=== PATIENT | male | born 1940 | race Caucasian/White ===

== ENCOUNTER → 2021-02-26 09:03 | Outpatient (CLI) | payer MEDICAID, SELFPAY ==
[2017-01-08 10:30] VITALS: BMI 30.2
[2021-02-26 11:21] LABS: AST(SGOT) 27 U/L (15-37); Alanine Aminotransfer ALT/SGPT 33 U/L (16-61); Albumin, Serum 3.1 g/dL (3.2-5.0); Alkaline Phosphatase 111 U/L (45-117); Bilirubin, Direct 0.14 mg/dL (0.00-0.30); Cholesterol 148 mg/dL (200); Globulin 3.5 g/dL (2.2-4.2); High Density Lipoprotein 43 mg/dL; Protein, Total 6.6 g/dL (6.4-8.2); Triglycerides 103 mg/dL; Very Low Density Lipoprotein 21 mg/dL (5-40)
== END ==
PROVIDERS: PCP Family Medicine; Referring Provider Internal Medicine Cardiovascular Disease; Visit Provider Internal Medicine Cardiovascular Disease
DX: E78.5 Hyperlipidemia, unspecified (principal); I25.10 Atherosclerotic heart disease of native coronary artery without angina pectoris; I25.5 Ischemic cardiomyopathy; Z95.0 Presence of cardiac pacemaker; I34.0 Nonrheumatic mitral (valve) insufficiency; I10 Essential (primary) hypertension; Z95.5 Presence of coronary angioplasty implant and graft
CPT/HCPCS: 36415; 80061; 80076

== ENCOUNTER 2021-06-22 10:51 | Emergency (ER) | payer MEDICAID, SELFPAY ==
[2017-01-08 10:30] VITALS: BMI 30.2
[2021-06-22 10:52] VITALS: BP 138/75; PULSE 96; RESP 20; TEMP 36.6; O2SAT 98; BMI 32.5
[2021-06-22 11:07] VITALS: BP 131/65; BP 147/73; BP 161/68; PULSE 100; PULSE 85
--- NOTE | 2021-06-22 11:07 | EKG12_ITS ---
Test Reason : DIZZINESS Blood Pressure : / mmHG Vent. Rate : 089 BPM Atrial Rate : 089 BPM P-R Int : 192 ms QRS Dur : 098 ms QT Int : 362 ms P-R-T Axes : 050 -15 056 degrees QTc Int : 440 ms Normal sinus rhythm Normal ECG Confirmed by SUZI PANG, TALYA ([id number]), slot editor ROJAS KIM ([id number]) on 06/26/2021 11:21:29 AM Referred By: MARIA ELENA Confirmed By:TALYA ARCHER MD
--- NOTE | 2021-06-22 11:08 | EDS_ITS ---
HPI History of Present Illness Chief Complaint: Dizziness Informant: patient Onset/Context/Timing Onset: Weeks Context: Sudden Onset Timing: Intermittent Current Severity: Gone Maximum Severity: Mild Narrative Narrative: 80-year-old male extensive past medical history of CAD, diabetes, hypertension, cardiomyopathy, renal insufficiency, pacemaker [employer]. States he has been lightheaded for last several weeks. He has had some near falls. Says he gets if he gets up more slowly it seems to go better but when he gets up quickly he gets lightheaded. He denies any trouble with his speech or vision. He denies any loss of strength in his arms or legs. He denies any recent illness other than some mild loose stools today. He denies any headache. He denies any chest pain. He denies any shortness of breath. He denies any fevers. Prior similar symptoms: Yes Recent Illness/Hospitalization: No [facility] Medical History Angina pectoris Atherosclerotic heart disease of [place] coronary artery without angina pectoris Chest pain Chronic renal insufficiency Diabetes mellitus, type II Essential hypertension Hyperlipidemia Hypertension Hypothyroidism Ischemic cardiomyopathy Nonrheumatic mitral valve regurgitation NSTEMI (non-ST elevated myocardial infarction) Overweight (BMI 25.0-29.9) Presence of permanent cardiac pacemaker (~10/03/16) Sinus bradycardia Sinus pause Systolic dysfunction Home Medications aspirin 81 mg chewable tablet 81 mg PO DAILY@0800 #90 tab.chew 11/21/17 [Rx Last Taken Unknown] levothyroxine 25 mcg tablet 25 mcg PO DAILY 02/23/21 [History Last Taken Unknown] atorvastatin 40 mg tablet 40 mg PO QHS tab 06/04/21 [History Last Taken Unknown] carboxymethylcellulose sodium 1 % eye liquid gel drops 1 drp OPHTHALMIC (EYE) QHS ml 06/04/21 [History Last Taken Unknown] lisinopril 2.5 mg tablet 2.5 mg PO DAILY tab 06/04/21 [History Last Taken Unknown] metformin 1,000 mg tablet 1,000 mg PO BIDWMEAL tab 06/04/21 [History Last Taken Unknown] Allergy/AdvReac Type Severity Reaction Status Date / Time No Known Allergies Allergy Verified 06/22/21 10:54 Family History Father Family history of coronary artery disease Surgical History History of cholecystectomy History of inguinal hernia repair History of tonsillectomy and adenoidectomy Hx of appendectomy Postsurgical percutaneous transluminal coronary angioplasty (PTCA) status Presence of stent in coronary artery (~10/02/16) Social History Smoking Status: Former smoker alcohol intake: never substance use type: does not use ROS ROS ED ROS Narrative No recent illness. Mild loose stool today. Review of Systems ROS Unobtainable: Denies due to encephalopathy Constitutional Constitutional ED: Denies fever(s) Eyes Eyes: Denies change in vision ENT ENT ED: Denies ear pain Cardiovascular Cardiovascular: Denies chest pain Respiratory/Chest Respiratory/Chest: Denies dyspnea Gastrointestinal Gastrointestinal: Reports diarrhea; Denies abdominal pain, nausea or vomiting Genitourinary Genitourinary ED: Denies dysuria Musculoskeletal Musculoskeletal: Denies myalgias Integumentary Denies rash Neurologic Neurologic: Denies headache(s) Psychiatric Psychiatric: Denies depression Endocrine Endocrinology: Denies polyuria Allergic/Immunologic Allergic/Immunologic ED: Denies urticaria EXAM Physical Exam Narrative Exam Narrative: Well-appearing 80-year-old male. Vital signs stable afebrile. H EENT exam unremarkable. Pupils are reactive light. Extra motions intact. Normal speech. No facial droop. No trauma. Lungs clear to auscultation. Heart regular rhythm rate about 95. Chest were nontender. Abdomen soft nontender. Moving all 4 extremities. 1+ pitting edema both lower extremities which patient states is chronic and unchanged. Neurologically is awake. Is alert. He is answering questions following commands. He has no facial droop. Normal speech. 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 Normal dorsi plantar flexion. Fingertip to nose within normal limits. NIH score while lying in bed is normal. Const Vital Signs: 06/22/21 10:52 06/22/21 11:07 06/22/21 11:17 Temperature 97.9 F Temperature Source Temporal Pulse Rate 96 Pulse Rate [Lying] 85 Pulse Rate [Standing (for 1 minute prior to obtaining)] 100 Respiratory Rate 20 H Respiratory Effort Normal Non-Labored Respiratory Pattern Normal Blood Pressure 138/75 H Blood Pressure [Lying] 131/65 H Blood Pressure [Sitting (for 1 minute prior to obtaining)] 147/73 H Blood Pressure [Standing (for 1 minute prior to obtaining)] 161/68 H Blood Pressure Mean 96 Blood Pressure Mean [Lying] 87 Blood Pressure Mean [Sitting (for 1 minute prior to obtaining)] 97 Blood Pressure Mean [Standing (for 1 minute prior to obtaining)] 99 Pulse Ox 98 Oxygen Delivery Method Room Air Positive well nourished and well developed; Negative for obese, cachectic, contractures or unkempt General Appearance ED: well developed and NAD; Negative for unkempt, cachectic, contractures, cyanotic or diaphoretic Nutritional Appearance: Negative for cachectic or obese HEENT Reports moist mucous membranes Negative for trauma or tenderness Eyes PERRL and EOMs intact bilaterally General Eye ED: Negative for pale conjunctiva or scleral icterus Neck no lymphadenopathy, supple and no JVD General: Negative for tenderness Chest Wall inspection of chest normal and palpation of chest normal Resp normal respiratory effort and clear to auscultation bilaterally Effort and Inspection: Negative for pain with movement Auscultation: Negative for rales, rhonchi or wheezes Cardio regular rate, regular rhythm, S1 normal heart sound and S2 normal heart sound; Negative for no murmurs GI normal to inspection, nondistended, normoactive bowel sounds, non-tender, non- distended and no masses Auscultation: normoactive bowel sounds Palpation: soft; Negative for tender, guarding or rebound tenderness present Back/Spine no CVA tenderness General Back: Negative for CVA tenderness Cervical Spine: Negative for cervical spine tenderness Thoracic Spine / Upper Back: Negative for thoracic spinal tenderness Extremity normal to inspection General Extremety ED: Yes edema; Negative for tenderness General Extremity: edema Neuro oriented x3 Neuro Narrative: Negative Hallpike. Normal motor strength in both upper and lower extremities. Sensorium / Orientation: alert; Negative for orientation impaired, lethargic or stuporous Motor Exam: strength 5/5 throughout Psych mental status grossly normal Appearance: Negative for unkempt Mood & Affect: Negative for depressed or tearful Skin no rashes or lesions noted, no wounds and No skin turgor normal General Skin Exam: Negative for elasticity normal MDM MDM MDM Narrative Medical decision making narrative: 80-year-old male complaining of lightheadedness when he stands quickly. I suspect this is orthostatic hypotension. He has no acute neurological findings. Labs CAT scan and orthostatic vital signs to be obtained. Repeat exam patient is doing well at 1:15 PM. He is walking through the hallway without any difficulty. I believe he may be having orthostatic blood pressure changes. These have been compensation with an accelerated heart rate when he stands. We did orthostatic vital signs his pressure did not drop. But he did have symptoms. He is recently had some medication changes family and him are unsure exactly which ones. He will follow up with his primary care physician to see if he needs his blood pressure medications adjusted or decreased. Lab Data Attestation: I reviewed the patient's lab results. Lab results narrative: CBC White count of 4.9. H&H 11.9 and 35.8 mildly anemic. Similar to a prior CBC. Chemistries unremarkable normal gap. BUN 22 creatinine 1.39 consistent with mild dehydration. Orthostatic vital signs showed an increase in heart rate but no drop in his blood pressure he is compensated for orthostatic hypotension. Labs: Laboratory Results - last 24 hr 06/22/21 06/22/21 11:15 11:15 WBC 4.9 RBC 3.77 L Hgb 11.9 L Hct 35.8 L MCV 95.0 H MCH 31.6 MCHC 33.2 RDW Std Deviation 46.2 H RDW Coeff of Taniya 13.1 Plt Count 157 MPV 10.2 Immature Gran % (Auto) 0.200 Neut % (Auto) 53.0 Lymph % (Auto) 30.5 Ross % (Auto) 13.9 H Eos % (Auto) 2.0 Baso % (Auto) 0.4 Absolute Neuts (auto) 2.6 Absolute Lymphs (auto) 1.49 Nucleated RBC % 0 Sodium 136 Potassium 4.0 Chloride 105 Carbon Dioxide 25.0 Anion Gap 6 BUN 22 H Creatinine 1.39 H Estim Creat Clear Calc 42.39 Est GFR (MDRD) Af Amer 63 Est GFR (MDRD) Non-Af 52 L BUN/Creatinine Ratio 15.8 Glucose 198 H Calcium 8.7 Radiography Diagnostic Testing: Clinical Impression(s) from Imaging Studies Brain CT 06/22/21 11:35 IMPRESSION: Chronic involutional changes of the brain. Sinusitis. Electronically Signed: Vaibhav Magaña MD at 12:02 EDT , Rhythm Strip Rhythm Strip: Sinus Rhythm Rate: 89 Ectopy: None EKG Initial EKG: Attestation: I personally reviewed and interpreted this EKG as follows: Interpretation: Sinus Rhythm and No Acute Injury Pattern Comments: Normal sinus rhythm rate of 89 no acute signs of CA or ischemia. Discharge Plan Triage Chief Complaint: Dizziness ED Provider: Gold Brock Dx/Rx/DC Orders Clinical Impression: Dizziness, History of diabetes mellitus, History of hypertension Instructions: ED Dizziness, Uncertain Cause Prescriptions: No Action levothyroxine 25 mcg tablet 25 mcg PO DAILY RF: 0 lisinopril 2.5 mg tablet 2.5 mg PO DAILY RF: 0 metformin 1,000 mg tablet 1,000 mg PO BIDWMEAL RF: 0 atorvastatin 40 mg tablet 40 mg PO QHS RF: 0 carboxymethylcellulose sodium [Refresh Liquigel] 1 % drops, liquid gel 1 drp ophthalmic (eye) QHS RF: 0 aspirin 81 mg tablet,chewable 81 mg PO DAILY@0800 Qty: 90 RF: 3 Primary Care Provider: Harshil Franklin Referrals: Harshil Franklin MD [Primary Care Provider] - 1 Week Activity Restrictions/Additional Instructions: Call and follow-up with your primary care physician. They may need to adjust your blood pressure medications. It seems when you go from a sitting or lying position to standing or getting lightheaded which may be secondary to your blood pressure. They may need to decrease your medication. Make sure you are drinking plenty of fluids. Have them check your blood pressures and write them down twice daily and then follow-up with your primary care physician. When you go from a sitting to a standing position do it very slowly Disposition Disposition: Home, Self Care
[2021-06-22 11:24] LABS: Absolute Lymphocyte Count 1.49 X10^3/uL (0.83-4.51); Absolute Neutrophil Count 2.6 X10^3/uL (2.0-7.7); Basophil# 0.02 X10^3/uL; Basophil% 0.4 % (0-1); Hematocrit 35.8 % (40-54); Hemoglobin 11.9 g/dL (13.0-16.5); Lymphocyte # 1.49 X10^3/ul (0.83-4.51); Lymphocyte % 30.5 % (19-41); Mean Corp Hgb Conc 33.2 g/dL (32-36); Mean Corpuscular Hgb 31.6 pg (27.0-32.0); Mean Platelet Vol. 10.2 fl (6.2-12.0); Monocyte# 0.68 X10^3/uL; Monocyte% 13.9 % (0-10); NRBC Flagged by Analyzer 0 % (0-5); Neutrophil # 2.58 X10^3/uL (2.7-7.7); Platelet Count 157 K/mm3 (150-450); RBC Distribution Width CV 13.1 % (11.6-14.6); RBC Distribution Width SD 46.2 fl (35.1-43.9); Red Blood Count 3.77 M/mm3 (4.6-6.2); White Blood Count 4.9 K/mm3 (4.4-11.0)
--- NOTE | 2021-06-22 11:35 | CT_ITS ---
STUDY: CT BRAIN WITHOUT CONTRAST REASON FOR EXAM: Male, 80 years old. dizziness RADIATION DOSAGE (If Supplied By Facility): CTDIvol = ( 44.99 ) mGy, DLP = ( 812.98 ) mGycm TECHNIQUE: Transaxial CT imaging of the brain was performed without administration of intravenous contrast material. Individualized dose optimization techniques were used for this CT. COMPARISON: Comparison is made with prior study dated 05/12/2014. FINDINGS: Normal soft tissue structures. Normal calvarium. Normal size ventricles and extra-axial spaces for the patient''s age. Normal white matter tracts of the cerebral hemispheres. Normal basal ganglia and thalami. Normal brainstem. Normal cerebellum. There is no intracranial hemorrhage. There are no findings of an acute ischemic infarction. Atherosclerotic calcification of the cavernous portions of the internal carotid arteries bilaterally. Partial opacification of the ethmoid sinuses more prominent on the right side. Mucosal thickening of the frontal sinus. CT/Brain/Head without Contrast IMPRESSION: Chronic involutional changes of the brain. Sinusitis. Electronically Signed: Vaibhav Magaña MD at 12:02 EDT ,
[2021-06-22 11:39] LABS: Anion Gap 6 (5-15); BUN 22 mg/dL (7-18); BUN/Creat Ratio 15.8 RATIO (10-20); Calcium,Total 8.7 mg/dL (8.5-10.1); Chloride 105 mmol/L (98-107); Creatinine, Serum 1.39 mg/dL (0.70-1.30); EST Glomerular Filtration Rate 52 mL/min (>60); Est Glom Filt Rate - Afr Amer 63 mL/min (>60); Estimated Creatinine Clearance 42.39 ml/min; Glucose 198 mg/dL (74-106); Sodium Level 136 mmol/L (136-145)
[2021-06-22 13:33] VITALS: BP 141/71; PULSE 77; RESP 16
== END 2021-06-22 13:37 | disposition home or self-care (01) ==
PROVIDERS: Emergency Provider Emergency Medicine; PCP Family Medicine; Visit Provider Emergency Medicine
DX: R42 Dizziness and giddiness (principal); I25.10 Atherosclerotic heart disease of native coronary artery without angina pectoris; I25.2 Old myocardial infarction; Z95.0 Presence of cardiac pacemaker; Z87.891 Personal history of nicotine dependence
CPT/HCPCS: 70450; 80048; 85025; 93005; 99284; A4216

== ENCOUNTER 2023-01-09 06:13 | Emergency (ER) | payer MEDICAID, SELFPAY ==
[2017-01-08 10:30] VITALS: BMI 30.2
[2023-01-09 06:14] VITALS: BP 118/62; PULSE 101; RESP 16; TEMP 36.6; O2SAT 94; BMI 27.8
--- NOTE | 2023-01-09 06:32 | EDS_ITS ---
HPI <Dr. Doug Prince DO - Last Filed: 01/09/23 06:55> HPI - Fall History of Present Illness Chief Complaint: Fall Informant: patient and SNF Occured/Mechanism Occurred: Today Narrative: Patient fell out of bed Pain/Injury Pain Location: head Quality of Pain: Aching Worsened by: Nothing Relieved by: Nothing Associated Symptoms Associated Symptoms: Negative for Parasthesias, Weakness, Loss of function, Inability to ambulate or Loss of consciousness Narrative Narrative: Patient presents after a fall that occurred today. Patient is a very poor informant. Patient states he remembers waking up on the floor. Patient thinks he hit the left side of his head. Patient denies any loss of consciousness. residential staff states that the patient is normally somewhat confused. Currently the patient is awake and alert and oriented to person and place. residential staff states that this is his baseline. [facility] <Dr. Doug Prince DO - Last Filed: 01/09/23 06:55> [facility] Medical History Angina pectoris Atherosclerotic heart disease of [place] coronary artery without angina pectoris Chest pain Chronic renal insufficiency Diabetes mellitus, type II Essential hypertension Hyperlipidemia Hypertension Hypothyroidism Ischemic cardiomyopathy Nonrheumatic mitral valve regurgitation NSTEMI (non-ST elevated myocardial infarction) Overweight (BMI 25.0-29.9) Presence of permanent cardiac pacemaker (~10/03/16) Sinus bradycardia Sinus pause Systolic dysfunction Home Medications aspirin 81 mg chewable tablet 81 mg PO DAILY@0800 ##90 11/21/17 [Rx Last Taken Unknown] atorvastatin 40 mg tablet 40 mg PO QHS 06/04/21 [History Last Taken Unknown] carboxymethylcellulose sodium 1 % eye liquid gel drops (Refresh Liquigel) 1 drp ophthalmic (eye) QHS 06/04/21 [History Last Taken Unknown] metformin 1,000 mg tablet 1,000 mg PO BIDWMEAL 06/04/21 [History Last Taken Unknown] lisinopril 5 mg tablet 5 mg PO DAILY 12/06/21 [History Last Taken Unknown] levothyroxine 50 mcg capsule 75 mcg PO DAILY 08/20/22 [History Last Taken Unknown] amoxicillin 875 mg-potassium clavulanate 125 mg tablet 875 mg (0.875 x 875-125 mg) PO Q12H #20 TABLETS 01/09/23 [Rx Last Taken Unknown] nirmatrelvir 300 mg (150 mg x2)-ritonavir 100 mg tablet,dose pack (Paxlovid) PO 01/09/23 [History Last Taken Unknown] Allergy/AdvReac Type Severity Reaction Status Date / Time No Known Allergies Allergy Verified 01/09/23 06:25 Family History (Reviewed 08/20/22 @ 13:50 by Hernesto Guillory ACCOUNTS RECEIVABLE BOOKKEEPER, ACCOUNTS RECEIVABLE BOOKKEEPER-C) Father Family history of coronary artery disease Surgical History History of cholecystectomy History of inguinal hernia repair History of tonsillectomy and adenoidectomy Hx of appendectomy Postsurgical percutaneous transluminal coronary angioplasty (PTCA) status Presence of stent in coronary artery (~10/02/16) Social History Smoking Status: Former smoker alcohol intake: never substance use type: does not use ROS <Dr. Doug Prince, - Last Filed: 01/09/23 06:55> ROS ED Constitutional Constitutional ED: Denies chills or fever(s) Cardiovascular Cardiovascular: Denies chest pain or palpitations Respiratory/Chest Respiratory/Chest: Denies cough or dyspnea Musculoskeletal Musculoskeletal: Denies back pain or neck pain Neurologic Neurologic: Reports headache(s) EXAM <Dr. Doug Prince, - Last Filed: 01/09/23 06:55> Physical Exam Const Vital Signs: 01/09/23 06:14 01/09/23 06:21 Temperature 97.8 F Temperature Source Oral Pulse Rate 101 H Respiratory Rate 16 Respiratory Effort Normal Blood Pressure 118/62 Blood Pressure Mean 80 Pulse Ox 94 Oxygen Delivery Method Room Air Room Air Positive well nourished and well developed General Appearance ED: well developed and NAD HEENT Reports normocephalic HEENT Narrative: There is some mild tenderness over the left parietal area. There is no bony cre pitance or step-off noted. There is no laceration noted. Neck full ROM and supple Chest Wall palpation of chest normal Resp normal respiratory effort and clear to auscultation bilaterally Cardio regular rate and regular rhythm GI non-tender and non-distended Palpation: soft Extremity Extremity Narrative: Extremities are intact x4. There is good range of motion of the upper and lower extremities. There is no edema or ecchymosis. There is no bony crepitance or step-off noted. There is no pain with internal and external rotation of the lower extremities. Neuro CN's II-XII intact bilaterally, moves all extremities, no focal motor deficits and no sensory deficits noted [place] Coma Scale: document GCS findings Spontaneous Obeys Commands Confused 14 Sensorium / Orientation: alert, oriented to person, oriented to place and confused Motor Exam: strength 5/5 throughout Psych mental status grossly normal Skin Lesions: no lesions Rashes: no rashes <Dr. Anoop Hernandez MD - Last Filed: 01/09/23 07:40> Physical Exam Const Vital Signs: 01/09/23 06:14 01/09/23 06:21 Temperature 97.8 F Temperature Source Oral Pulse Rate 101 H Respiratory Rate 16 Respiratory Effort Normal Blood Pressure 118/62 Blood Pressure Mean 80 Pulse Ox 94 Oxygen Delivery Method Room Air Room Air Neuro [place] Coma Scale: document GCS findings 14 MDM <Dr. Doug Prince DO - Last Filed: 01/09/23 06:55> [facility] Narrative Medical decision making narrative: Differential diagnosis includes intracranial bleeding, concussion, hypoglycemia, and contusion. CT scan of the brain will be obtained to assess for intracranial bleeding. BGT will be obtained to assess for hypoglycemia. Radiography Diagnostic Testing: Clinical Impression(s) from Imaging Studies Brain CT 01/09/23 06:40 IMPRESSION: 1. No acute intracranial abnormalities. 2. Age-related changes. Electronically Signed: Stefano Lopez MD at 7:16 EDT , Treatment and Re-Evaluation Narrative: Care of the patient will be turned over to the oncoming physician pending CT results and BGT results. <Dr. Anoop Hernandez MD - Last Filed: 01/09/23 07:40> [facility] Radiography Diagnostic Testing: Clinical Impression(s) from Imaging Studies Brain CT 01/09/23 06:40 IMPRESSION: 1. No acute intracranial abnormalities. 2. Age-related changes. Electronically Signed: Stefano Lopez MD at 7:16 EDT , The head without contrast was independent reviewed by ok at 0715. There is no evidence of skull fracture or evidence of subdural hematoma, epidural hematoma, traumatic subarachnoid hemorrhage or intraparenchymal bleed. There is air-fluid levels noted in the right and left maxillary sinus. The frontal and sphenoid sinuses are clear. Awaiting formal read by radiologist. Treatment and Re-Evaluation Narrative: Care of the patient will be turned over to the oncoming physician pending CT results and BGT results. Care was transferred to ok at 0700. Plan was to discharge if PGT and CT were unremarkable. CT results revealed no intracranial abnormalities. Discharge Plan Triage Chief Complaint: Fall ED Provider: Duog Prince Dx/Rx/DC Orders Clinical Impression: Closed head injury, Fall, Atherosclerotic heart disease of [place] coronary artery without angina pectoris, Diabetes mellitus, type II, Essential hypertension, Hyperlipidemia, Maxillary sinusitis, acute Instructions: ED Head Injury (Adult), ED Sinusitis (Antibiotic Treatment) Prescriptions: New amoxicillin-pot clavulanate [amoxicillin-pot clavulanate] 875-125 mg tablet 875 mg PO Q12H Qty: 20 0RF No Action metformin 1,000 mg tablet 1,000 mg PO BIDWMEAL Patient Comments: 1 TABLET BY MOUTH TWICE ATDAY WITH MEALS DX:DMIIM atorvastatin 40 mg tablet 40 mg PO QHS Patient Comments: 1 TABLET BY MOUTH DAILY DX: carboxymethylcellulose sodium [Refresh Liquigel] 1 % drops, liquid gel 1 drp ophthalmic (eye) QHS lisinopril 5 mg tablet 5 mg PO DAILY levothyroxine 50 mcg capsule 75 mcg PO DAILY Paxlovid 300 mg (150 mg x 2)-100 mg tablets,dose pack PO Patient Comments: take three tabsbid x 5 days Rx Instructions: take TWO 150 mg tablets of nirmatrelvir with ONE 100 mg tablet of ritonavir twice daily for 5 days aspirin 81 mg tablet,chewable 81 mg PO DAILY@0800 Qty: 90 3RF Patient Comments: [facility] Primary Care Provider: Harshil Franklin Referrals: Harshil Franklin MD [Primary Care Provider] - 1 Week Disposition Disposition: Home, Self Care
--- NOTE | 2023-01-09 06:40 | CT_ITS ---
EXAM: CT HEAD WITHOUT INTRAVENOUS CONTRAST CLINICAL INDICATION: Trauma TECHNIQUE: Multiple axial images were obtained of the head without intravenous contrast. This CT exam was performed using one or more of the following dose reduction techniques: automated exposure control, adjustment of the mA and/or kV according to patient size, and/or use of iterative reconstruction technique. RADIATION DOSE: CTDIvol = 44.99 mGy, DLP = 745.49 mGy-cm COMPARISON: Head CT 06/22/2021 FINDINGS: BRAIN AND EXTRA-AXIAL SPACES: Diffuse cerebral volume loss. Periventricular small vessel ischemic changes. No intra- or extra-axial hemorrhage. No intracranial mass or mass effect. Posterior fossa structures are unremarkable. No hydrocephalus. Basal cisterns are patent. BONES/JOINTS: Unremarkable. No discrete lytic or blastic abnormalities. VASCULATURE: Vascular calcifications. SINUSES: Bilateral maxillary sinus disease. MASTOID AIR CELLS: Fluid in the mastoid air cells without erosion. ORBITS: Visualized globes, extraocular muscles, optic nerves and retrobulbar fat appear unremarkable. CT/Brain/Head without Contrast IMPRESSION: 1. No acute intracranial abnormalities. 2. Age-related changes. Electronically Signed: Stefano Lopez MD at 7:16 EDT ,
[2023-01-09] MEDS: Amox/Clavulanate 875 MG Tablet PO (08:12)
[2023-01-09 08:13] VITALS: BP 118/60; PULSE 72; RESP 18; O2SAT 96
[2023-01-09 08:23] VITALS: BP 120/62; PULSE 72; RESP 18; O2SAT 96
== END 2023-01-09 08:26 | disposition home or self-care (01) ==
PROVIDERS: Emergency Provider Emergency Medicine; PCP Family Medicine; Visit Provider Emergency Medicine
DX: S09.90XA Unspecified injury of head, initial encounter (principal); E11.22 Type 2 diabetes mellitus with diabetic chronic kidney disease; J01.00 Acute maxillary sinusitis, unspecified; W06.XXXA Fall from bed, initial encounter; Y92.122 Bedroom in nursing home as the place of occurrence of the external cause; I25.10 Atherosclerotic heart disease of native coronary artery without angina pectoris; I12.9 Hypertensive chronic kidney disease with stage 1 through stage 4 chronic kidney disease, or unspecified chronic kidney disease; N18.9 Chronic kidney disease, unspecified; I25.2 Old myocardial infarction; Z95.5 Presence of coronary angioplasty implant and graft; Z79.82 Long term (current) use of aspirin; Z79.84 Long term (current) use of oral hypoglycemic drugs; Z79.899 Other long term (current) drug therapy; Z87.891 Personal history of nicotine dependence
CPT/HCPCS: 70450; 99283

== ENCOUNTER 2023-01-11 19:13 | Inpatient (IN) | payer MEDICAID, SELFPAY ==
[2017-01-08 10:30] VITALS: BMI 30.2
--- NOTE | 2023-01-11 16:54 | EKG12_ITS ---
Test Reason : DYSRHYTHMIA Blood Pressure : / mmHG Vent. Rate : 077 BPM Atrial Rate : 077 BPM P-R Int : 222 ms QRS Dur : 098 ms QT Int : 400 ms P-R-T Axes : 071 -14 043 degrees QTc Int : 452 ms Sinus rhythm with 1st degree A-V block Otherwise normal ECG Confirmed by LORAINE PANG, FRANCO ([id number]), science editor GLORIA SHETTY ([id number]) on 02/03/2023 11:14:44 AM Referred By: Enriqueta Barker Confirmed By:STEWART BARON MD
--- NOTE | 2023-01-11 17:00 | RAD_ITS ---
STUDY: X-RAY CHEST REASON FOR EXAM: Male, 82 years old. COUGH TECHNIQUE: AP COMPARISON: 01/07/2017 FINDINGS: Two lead cardiac conduction device is seen via the left subclavian vein with lead tips projecting over the right atrium and right ventricle, respectively. Airspace disease of the right lung base is new. There is no demonstrated pleural abnormality. Normal size heart. Normal mediastinum and edis. Normal visualized pulmonary arteries. Normal visualized aortic arch and descending thoracic aorta. No acute bony process. There is no demonstrated abnormality of the visualized soft tissue structures of the upper abdomen. RAD/Chest 1 View (Portable) IMPRESSION: Right lower lobe airspace disease/pneumonia. Follow-up x-ray to document resolution recommended. Electronically Signed: Migel Michael MD (Brooks) at 19:54 EDT ,
--- NOTE | 2023-01-11 17:10 | CT_ITS ---
STUDY: CT BRAIN WITHOUT CONTRAST REASON FOR EXAM: Male, 77 years old. confused RADIATION DOSAGE (If Supplied By Facility): CTDIvol = ( 44.99 ) mGy, DLP = ( 779.24 ) mGycm TECHNIQUE: Transaxial CT imaging of the brain was performed without administration of intravenous contrast material. Individualized dose optimization techniques were used for this CT. COMPARISON: 08/09/2020 FINDINGS: Normal soft tissue structures. Normal calvarium. Central parenchymal volume loss. White matter changes that are nonspecific but most commonly associated with chronic small vessel ischemic disease. Normal basal ganglia and thalami. Normal brainstem. Normal cerebellum. There is no intracranial hemorrhage. There are no findings of an acute ischemic infarction. Small right maxillary sinus air-fluid level. CT/Brain/Head without Contrast IMPRESSION: No acute intracranial hemorrhage or mass effect. Electronically Signed: Migel Michael MD ([place]oks) at 17:28 EDT ,
[2023-01-11] MEDS: 0.9% Normal Saline (1000mL) 1,000 ML 75 ML IV (19:20)
--- NOTE | 2023-01-11 19:21 | EX.ED.DYSGE1 ---
HPI History of Present Illness Chief Complaint: Weakness Detail of Chief Complaint: [facility] Informant: patient Onset/Context/Timing Onset: Today Context: Gradual Onset Timing: Continuous Maximum Severity: Moderate Narrative Narrative: 82-year-old male poor informant. Prior cardiac history and diabetes. Sent in for failure to thrive [facility]. Prior similar symptoms: No Recent Illness/Hospitalization: No [facility] Medical History Angina pectoris Atherosclerotic heart disease of [place] coronary artery without angina pectoris Chest pain Chronic renal insufficiency Diabetes mellitus, type II Essential hypertension Hyperlipidemia Hypertension Hypothyroidism Ischemic cardiomyopathy Nonrheumatic mitral valve regurgitation NSTEMI (non-ST elevated myocardial infarction) Overweight (BMI 25.0-29.9) Presence of permanent cardiac pacemaker (~10/03/16) Sinus bradycardia Sinus pause Systolic dysfunction Home Medications aspirin 81 mg chewable tablet 81 mg PO DAILY@0800 ##90 11/21/17 [Rx Last Taken Unknown] atorvastatin 40 mg tablet 40 mg PO QHS 06/04/21 [History Last Taken Unknown] carboxymethylcellulose sodium 1 % eye liquid gel drops (Refresh Liquigel) 1 drp ophthalmic (eye) QHS 06/04/21 [History Last Taken Unknown] metformin 1,000 mg tablet 1,000 mg PO BIDWMEAL 06/04/21 [History Last Taken Unknown] lisinopril 5 mg tablet 5 mg PO DAILY 12/06/21 [History Last Taken Unknown] levothyroxine 50 mcg capsule 75 mcg PO DAILY 08/20/22 [History Last Taken Unknown] amoxicillin 875 mg-potassium clavulanate 125 mg tablet 875 mg (0.875 x 875-125 mg) PO Q12H #20 TABLETS 01/09/23 [Rx Last Taken Unknown] nirmatrelvir 300 mg (150 mg x2)-ritonavir 100 mg tablet,dose pack (Paxlovid) PO 01/09/23 [History Last Taken Unknown] Allergy/AdvReac Type Severity Reaction Status Date / Time No Known Allergies Allergy Verified 01/09/23 06:25 Family History Father Heart disease Hypertension CAD (coronary artery disease) Surgical History History of cholecystectomy History of inguinal hernia repair History of tonsillectomy and adenoidectomy Hx of appendectomy Postsurgical percutaneous transluminal coronary angioplasty (PTCA) status Presence of stent in coronary artery (~10/02/16) Social History household members: none housing: assisted living facility Smoking Status: Former smoker alcohol intake: never substance use type: does not use ROS ROS ED ROS Narrative Limited informant due to his overall medical condition. Review of Systems ROS Unobtainable: due to mental status EXAM Physical Exam Narrative Exam Narrative: 8-year-old male vital signs are stable. He is afebrile. H EENT exam dry mucous membranes. Given reactive light. Neck nontender. No lymphadenopathy. Lungs clear to auscultation bilaterally. Heart regular rhythm no murmur. Chest wall nontender. Abdomen soft nontender. Moving all 4 extremities. Nontender. Neurologically he is awake. His eyes are open. He is trying to answer questions but his information is not reliable and may not be accurate. He does move all 4 extremities. There is no focal motor deficits. Const Positive well nourished and well developed; Negative for obese, cachectic or contractures General Appearance ED: well developed; Negative for cachectic, contractures, cyanotic, diaphoretic or pallor Nutritional Appearance: Negative for cachectic or obese HEENT Reports dry mucous membranes; Denies moist mucous membranes Negative for trauma or tenderness Mouth ED: Yes dry mucous membranes Mouth: dry mucous membranes Eyes PERRL and EOMs intact bilaterally General Eye ED: Negative for pale conjunctiva or scleral icterus Neck no lymphadenopathy, supple and no JVD General: Negative for tenderness Lymph Lymphatic: Negative for other Chest Wall inspection of chest normal and palpation of chest normal Chest: Negative for other Resp normal respiratory effort and clear to auscultation bilaterally Effort and Inspection: Negative for retractions Auscultation: Negative for rales, rhonchi or wheezes Cardio regular rate, regular rhythm, S1 normal heart sound, S2 normal heart sound and no murmurs GI normal to inspection, nondistended, normoactive bowel sounds, non-tender, non-distended and no masses Inspection: Negative for abdominal distention Auscultation: normoactive bowel sounds Palpation: soft; Negative for tender or guarding Back/Spine no CVA tenderness General Back: Negative for CVA tenderness Cervical Spine: Negative for cervical spine tenderness Thoracic Spine / Upper Back: Negative for thoracic spinal tenderness or paraspinal muscle tenderness Lumbar Spine / Lower Back: Negative for lumbar spinal tenderness Extremity normal to inspection General Extremety ED: Negative for edema or tenderness General Extremity: Negative for edema Neuro No oriented x3 and CN's II-XII intact bilaterally Sensorium / Orientation: alert and orientation impaired; Negative for lethargic or stuporous Motor Exam: strength 5/5 throughout Psych mental status grossly normal Appearance: Negative for other Attitude: No agitated Mood & Affect: Negative for depressed, anxious or tearful Skin no rashes or lesions noted and no wounds General Skin Exam: Negative for jaundice or pallor Lesions: No lesion noted Rashes: No rashes noted Trauma: Negative for abrasion Wounds: Negative for wounds noted MDM MDM MDM Narrative Medical decision making narrative: Male from a apartment complex and normal for failure to thrive. He is a very limited informant. Clinically looks dehydrated. He will undergo work-up for infectious etiology, dehydration etc. Repeat exam no significant change. He received a liter of normal saline. Patient's been typed and crossed for 2 units to be transfused 1 unit. He will be started on IV antibiotics Rocephin and Zithromax for suspected right lower lobe pneumonia on chest x-ray. I have already spoken to the hospitalist. He will be admitted to the progressive care unit. History & Record Review Discussion w/independent historian: Patient Additional record(s) reviewed:: Prior inpatient record, Prior outpatient record, Prior ED visit and Prior labs Lab Data Attestation: I reviewed the patient's lab results. Lab results narrative: Labs were consistent with dehydration and renal insufficiency. CBC showed an anemia with a hemoglobin in the 7-1/2 range. Chest x-ray shows a right lower lobe pneumonia. CAT scan of the brain showed no acute abnormality. EKG was unremarkable. Radiography Chest X-Ray - ED: 1 View, Read by ED Physician, Heart, Mediastinum, Bony Structures, Chronic Changes and Right Infiltrate (Right lower lobe infiltrate.) Rhythm Strip Rhythm Strip: Sinus Rhythm Rate: 82 Ectopy: None EKG Initial EKG: Attestation: I personally reviewed and interpreted this EKG as follows: Interpretation: Sinus Rhythm and No Acute Injury Pattern Comments: Normal sinus rhythm rate 82. First-degree AV block. No acute signs of ME or ischemia. Critical Care Time Critical Care Time: Yes Critical care time (excluding procedures): 30-74 minutes, Including time spent:, Discussing w/Patient &/or Family/Mild Disabilities Teacher, Discussing w/Consultants, Arranging Admission or Transfer, Performing Direct Patient Care at Bedside and - (33 min) Discharge Plan Triage Chief Complaint: Weakness ED Provider: Gold Brock Dx/Rx/DC Orders Prescriptions: No Action metformin 1,000 mg tablet 1,000 mg PO BIDWMEAL Patient Comments: 1 TABLET BY MOUTH TWICE ATDAY WITH MEALS DX:DMIIM atorvastatin 40 mg tablet 40 mg PO QHS Patient Comments: 1 TABLET BY MOUTH DAILY DX: carboxymethylcellulose sodium [Refresh Liquigel] 1 % drops, liquid gel 1 drp ophthalmic (eye) QHS lisinopril 5 mg tablet 5 mg PO DAILY levothyroxine 50 mcg capsule 75 mcg PO DAILY Paxlovid 300 mg (150 mg x 2)-100 mg tablets,dose pack PO Patient Comments: take three tabsbid x 5 days Rx Instructions: take TWO 150 mg tablets of nirmatrelvir with ONE 100 mg tablet of ritonavir twice daily for 5 days amoxicillin-pot clavulanate [amoxicillin-pot clavulanate] 875-125 mg tablet 875 mg PO Q12H Qty: 20 0RF aspirin 81 mg tablet,chewable 81 mg PO DAILY@0800 Qty: 90 3RF Patient Comments: heart health Primary Care Provider: Harshil Franklin Referrals: Harshil Franklin MD [Primary Care Provider] -
--- NOTE | 2023-01-11 19:22 | HP.PCM.HOS_ITS ---
HPI - General General Date of Admission: 01/11/23 Date of Service: 01/11/23 Chief Complaint: Falls, debility, weakness, confusion, unable to care for self. HPI Narrative The patient is an 82 y/o M w/ PMHx: PAF/Flutter, Chronic anemia/Chronic normocytic anemia, CKD unclear if stage II or III, CAD s/p PCI, Ischemic cardiomyopathy, Diabetes mellitus type II, HTN, HLD, Hypothyroidism, Sinus bradycardia/pauses s/p pacemaker status, Former tobacco use, recent [facility] ED evaluation 01/09/23 secondary to also mechanical fall with back discomfort at that time who now [id number] to the [facility] ED on 01/11/23 with history of increased weakness and debility, initial evaluation per EMS wit patient alert and oriented x1 only although extremely hard of hearing with underlying baseline charted dementia with decreased appetite, falls, increasing debility prompting eventual EMS transition to the ED for evaluation. Work-up in the ED included T98.4, heart rate 76, BP 102/56, respiratory rate 13, 96% on room air, CBC with WC 4.3, hemoglobin 7.4, MCV 93, platelet 141 with lymphopenia, urinalysis with no marked evidence of UTI, CT brain with no acute intracranial findings, T+C 2 u PRBC given dehydrated appearance upon presentation and Hgb 7.4, CXR with suspected RLL, Bld Cx x 2 pending per ED. In the ED patient administered IV Rocephin and IV azithromycin as well as 1 L normal saline. [facility] Medical History (Updated 01/11/23 @ 19:[address] Enriqueta Barker MD) Atherosclerotic heart disease of [place] coronary artery without angina pectoris Chronic renal insufficiency Diabetes mellitus, type II Essential hypertension Hyperlipidemia Hypothyroidism Ischemic cardiomyopathy Nonrheumatic mitral valve regurgitation NSTEMI (non-ST elevated myocardial infarction) Overweight (BMI 25.0-29.9) Presence of permanent cardiac pacemaker (~10/03/16) Sinus bradycardia Sinus pause Systolic dysfunction Home Medications aspirin 81 mg chewable tablet 81 mg PO DAILY@0800 ##90 11/21/17 [Rx Last Taken Unknown] atorvastatin 40 mg tablet 40 mg PO QHS 06/04/21 [History Last Taken Unknown] carboxymethylcellulose sodium 1 % eye liquid gel drops (Refresh Liquigel) 1 drp ophthalmic (eye) QHS 06/04/21 [History Last Taken Unknown] metformin 1,000 mg tablet 1,000 mg PO BIDWMEAL 06/04/21 [History Last Taken Unknown] lisinopril 5 mg tablet 5 mg PO DAILY 12/06/21 [History Last Taken Unknown] levothyroxine 50 mcg capsule 75 mcg PO DAILY 08/20/22 [History Last Taken Unknown] amoxicillin 875 mg-potassium clavulanate 125 mg tablet 875 mg (0.875 x 875-125 mg) PO Q12H #20 TABLETS 01/09/23 [Rx Last Taken Unknown] nirmatrelvir 300 mg (150 mg x2)-ritonavir 100 mg tablet,dose pack (Paxlovid) PO 01/09/23 [History Last Taken Unknown] Allergy/AdvReac Type Severity Reaction Status Date / Time No Known Allergies Allergy Verified 01/09/23 06:25 Family History Father Heart disease Hypertension CAD (coronary artery disease) Surgical History (Updated 01/11/23 @ 19:[address] Enriqueta Barker MD) History of cholecystectomy History of inguinal hernia repair History of tonsillectomy and adenoidectomy Hx of appendectomy Postsurgical percutaneous transluminal coronary angioplasty (PTCA) status Presence of stent in coronary artery (~10/02/16) S/P cardiac pacemaker procedure Social History household members: none housing: assisted living facility Smoking Status: Former smoker alcohol intake: never substance use type: does not use ROS Review of Systems ROS Unobtainable: due to encephalopathy Physical Exam Narrative Physical Examination: General: Awake, alert, minimally oriented, encephalopathic, still following some commands but very hard of hearing, difficulty evaluation, laying in the ED bed, no acute distress. Skin: Normal color, normal turgor, no icterus, no cyanosis except significant bilateral lower extremity venous stasis skin changes as well as occasional staged ecchymoses to the extremities. HEENT: AT/NC, EOMI, PERRLA, dry MM, no carotid bruits or JVD noted. Lungs: Diminished, greater bases, appropriate effort, despite chest x-ray findings no appreciated rales, ronchi or wheezing. Heart: Regular/paced; no gallop, rub audible. Abdomen: Soft, NTTP, ND, hyperactive BS, no appreciated HSM. Extremities: No cyanosis, no clubbing, significant pedal to proximal [place] 3+ pitting edema, see skin. Neurological: Awake, alert, minimally oriented, encephalopathic, still following some commands but very hard of hearing, difficulty evaluation, laying in the ED bed, no acute distress, cognitive function not baseline intact; pupils equally reactive to light and accommodation, cranial nerves grossly pill normal but difficult evaluation given encephalopathy, moving extremities spontaneously, no obvious focal deficit, strength severely globally decreased. Psychiatric: Affect appears flat, no acute evidence of depressive or anxiety feelings. Assessment & Plan Assessment/Plan (1) Encephalopathy acute: PLAN: Plan The patient is an 82 y/o M w/ PMHx: PAF/Flutter, Chronic anemia/Chronic normocytic anemia, CKD unclear if stage II or III, CAD s/p PCI, Ischemic cardiomyopathy, Diabetes mellitus type II, HTN, HLD, Hypothyroidism, Sinus bradycardia/pauses s/p pacemaker status, Former tobacco use, recent [facility] ED evaluation 01/09/23 secondary to also mechanical fall with back discomfort at that time who now [id number] to the [facility] ED on 01/11/23 with history of increased weakness and debility, initial evaluation per EMS wit patient alert and oriented x1 only although extremely hard of hearing with underlying baseline charted dementia with decreased appetite, falls, increasing debility prompting eventual EMS transition to the ED for evaluation. 1. Acute Encephalopathy and Adult FTT, Multifactial, secondary to RLL Pneumonia and concurrent #2 and #3: CXR in the ED w/ suspected RLL infiltrate but final read pending. Will admit to PCU to be cautious given lower BPs, PRN albuterol, maintained on IV Rocephin and Azithromycin, HOB, IS parameters w/ pending sputum cultures, full respiratory viral panel, COVID antigen and urine antigens, p rocalcitonin pending. PT/OT/CM consulted for discharge planning. 2. Acute on Chronic normocytic anemia, certainly possible GI bleed but not verified and no facility report of altered stools: Admission hemoglobin 7.4, MCV 93, baseline hemoglobin appears to be primarily 11 however last lab noted was 06/2021, will continue to trend, will obtain stool guaiac as well as iron panel, ferritin to further assess, ED of note also already initiated 2 u PRBC given concern Hgb truly lower given dehydrated appearance, will trend H+H also, maintain on PPI to be cautious, allow clears with NPO status at midnight until ascertain whether or not patient is a GI bleed. If Hgb further trends down or evidence GI bleed will involve gastroenterology. 3. Suspected Mild Acute Renal Insufficiency on Chronic Kidney Disease Stage, unclear stage potentially II versus III as well as has vacillated per review of GFR trending: Suspect mild insufficiency on chronic secondary to failure to appropriately care for self with likely decreased oral intake, admission BUN/Cr 34/1.51, baseline renal function 0.9-1.2 primarily however has increased up to 1.4, repeat BMP in AM. 4. CAD/ischemic cardiomyopathy: Status post PCI, will judiciously hydrate given history, holding aspirin given acute presentation with increased anemia although last hemoglobin 06/2021 but to be cautious in case of GI bleed component, continue atorvastatin, holding hypertensive regimen given low BP as noted. 09/30/2016 echocardiogram with mild segmental systolic dysfunction, EF 45%, moderate concentric LVH, mild to moderate MVI, mild TVI, trivial WALT, trivial PVI, RVSP 36 mmHg, transmitral diastolic flow velocities suggestive of diastolic dysfunction. 5. Diabetes mellitus type II: Hold oral home regimen, will allow clears until midnight then n.p.o. status pending further evaluation of decreased hemoglobin as noted, accu checks w/ ISS. 6. PAF/Flutter: Not chronically anticoagulant possibly secondary to falls, not on rate or rhythm agent with history of bradycardia/sinus pauses status post pacemaker placement. 7. Hypertension: Patient with low BP upon presentation, will hold regimen until clinically appropriate for resumption. 8. Hyperlipidemia: We will continue patient on statin therapy. 9. Hypothyroidism: We will continue patient on levothyroxine regimen, TSH and free T4 requested. 10. History sinus lang dysfunction with bradycardia/pauses: Status post pacemaker placement. 11. Former tobacco use: Encourage continued tobacco cessation. 12. DVT Prophylaxis: SCDs, defer chemoprophylaxis until sure no GI bleed component. 13. CODE status: Patient unable to give any history regarding HCPOA/LW, awaiting information from facility, in interim will maintain Full Code unverified status. Charges/Coding Visit Charges Inpatient E&M: 34382 Init Hosp L3
[2023-01-11 19:40] VITALS: BMI 25.8
[2023-01-11 21:10] LABS: Absolute Lymphocyte Count 0.55 X10^3/uL (0.83-4.51); Absolute Neutrophil Count 2.3 X10^3/uL (2.0-7.7); Basophil# 0.02 X10^3/uL; Basophil% 0.5 % (0-1); Eosinophil# 0.01 X10^3/uL; Eosinophils% 0.3 % (0-5); Hematocrit 22.5 % (40-54); Hemoglobin 7.3 g/dL (13.0-16.5); Lymphocyte # 0.55 X10^3/ul (0.83-4.51); Lymphocyte % 14.9 % (19-41); Mean Corp Hgb Conc 32.4 g/dL (32-36); Mean Corpuscular Hgb 30.5 pg (27.0-32.0); Mean Corpuscular Volume 94.1 fL (80-94); Mean Platelet Vol. 10.2 fl (6.2-12.0); Monocyte# 0.79 X10^3/uL; Monocyte% 21.5 % (0-10); NRBC Flagged by Analyzer 0 % (0-5); Neutrophil # 2.27 X10^3/uL (2.7-7.7); Neutrophil % 61.7 % (47-70); POSITIVE DIFFERENTIAL YES; Platelet Count 145 K/mm3 (150-450); RBC Distribution Width CV 15.1 % (11.6-14.6); RBC Distribution Width SD 52.6 fl (35.1-43.9); Red Blood Count 2.39 M/mm3 (4.6-6.2); White Blood Count 3.7 K/mm3 (4.4-11.0)
[2023-01-11 21:12] LABS: Differential Indicated SCAN CRITERIA MET
[2023-01-11 21:38] LABS: Differential Comment SCANNED
[2023-01-11 21:51] LABS: Ferritin 2432 ng/mL (26-388); Iron 23 ug/dL (65-175); Iron Binding Capacity,Total 165 ug/dL (250-450); Magnesium 1.6 mg/dL (1.6-2.6); PERCENT IRON SATURATION 13.9 % (15.0-55.0)
[2023-01-11 22:00] VITALS: PULSE 76; RESP 18
[2023-01-11 22:19] LABS: Hemoglobin 6.6 g/dL (13.0-16.5)
[2023-01-11] MEDS: Pantoprazole Sodium 40 MG in 0.9% Normal Saline (100mL MB+) 100 ML 330 MG IV (22:24)
[2023-01-11] MEDS: Atorvastatin Calcium 40 MG Tablet PO (22:24)
[2023-01-11] MEDS: Menthol/Lanolin/Calamine/Znox 113 GM Tube 1 APPLIC TOPICAL (22:24)
[2023-01-11] MEDS: Glycerin/Hypromellose/PEG400 15 ml Bottle 1 DRP EACH EYE (22:25)
--- NOTE | 2023-01-11 23:00 | EX.PCM.CON.G ---
HPI Consult Data Date of Consult: 01/11/23 HPI Narrative Reason for Consultation: Anemia HPI Narrative: JILLIAN PAGAN, is a 82 M who presents for failure to thrive at his senior apartment complex. He has a past medical history of PAF/Flutter (on aspirin only due to fall risk), Chronic anemia/Chronic normocytic anemia, CKD unclear if stage II or III, CAD s/p PCI, Ischemic cardiomyopathy, Sinus bradycardia/pauses s/p pacemaker. He has been having increased weakness and debility. ED included T98.4, heart rate 76, BP 102/56, respiratory rate 13, 96% on room air, CBC with WC 4.3, hemoglobin 7.4, MCV 93, platelet 141 with lymphopenia, urinalysis with no marked evidence of UTI, CT brain with no acute intracranial findings, T+C 2 u PRBC given dehydrated appearance upon presentation and Hgb 7.4, CXR with suspected RLL, Bld Cx x 2 pending per ED. In the ED patient administered IV Rocephin and IV azithromycin as well as 1 L normal saline. I was called to evaluate him because of progressive anemia. [facility] Medical History (Updated 01/12/23 @ 08:[address] Boy Nicholas, DO) Atherosclerotic heart disease of [place] coronary artery without angina pectoris Chronic renal insufficiency Diabetes mellitus, type II Essential hypertension Hyperlipidemia Hypothyroidism Ischemic cardiomyopathy Nonrheumatic mitral valve regurgitation NSTEMI (non-ST elevated myocardial infarction) Overweight (BMI 25.0-29.9) Presence of permanent cardiac pacemaker (~10/03/16) Sinus bradycardia Sinus pause Systolic dysfunction Home Medications aspirin 81 mg chewable tablet 81 mg PO DAILY@0800 ##90 11/21/17 [Rx Last Taken Unknown] atorvastatin 40 mg tablet 40 mg PO QHS cholesterol 06/04/21 [History Last Taken Unknown] carboxymethylcellulose sodium 1 % eye liquid gel drops (Refresh Liquigel) 1 drp ophthalmic (eye) QHS dry eyes 06/04/21 [History Last Taken Unknown] metformin 1,000 mg tablet 1,000 mg PO BIDWMEAL diabetes 06/04/21 [History Last Taken Unknown] lisinopril 5 mg tablet 5 mg PO DAILY blood pressure 12/06/21 [History Last Taken Unknown] levothyroxine 50 mcg capsule 75 mcg PO DAILY hypothyroidism 08/20/22 [History Last Taken Unknown] amoxicillin 875 mg-potassium clavulanate 125 mg tablet 875 mg (0.875 x 875-125 mg) PO Q12H #20 TABLETS 01/09/23 [Rx Last Taken Unknown] nirmatrelvir 300 mg (150 mg x2)-ritonavir 100 mg tablet,dose pack (Paxlovid) 3 tab PO .5 days covid 01/09/23 [History Last Taken 01/10/23] Allergy/AdvReac Type Severity Reaction Status Date / Time penicillins Allergy Unknown NEEDS Uncoded 01/11/23 20:32 FOLLOW-UP Family History Father Heart disease Hypertension CAD (coronary artery disease) Surgical History (Updated 01/11/23 @ 19:[address] Enriqueta Barker MD) History of cholecystectomy History of inguinal hernia repair History of tonsillectomy and adenoidectomy Hx of appendectomy Postsurgical percutaneous transluminal coronary angioplasty (PTCA) status Presence of stent in coronary artery (~10/02/16) S/P cardiac pacemaker procedure Social History household members: none housing: assisted living facility Smoking Status: Former smoker alcohol intake: never substance use type: does not use ROS Review of Systems ROS Unobtainable: due to encephalopathy Physical Exam Const alert and no apparent distress General Appearance: cooperative, well kempt and well developed Orientation / Consciousness: awake HEENT normocephalic, head/scalp atraumatic and moist oral mucous membranes Eyes PERRL, EOMs intact bilaterally and conjunctivae normal Neck supple, no JVD, thyroid normal and no carotid bruits General: trachea midline Resp normal respiratory effort, no retractions, no use of accessory muscles and clear to auscultation bilaterally Auscultation: Negative for rales, rhonchi or wheezes Cardio regular rate, regular rhythm, S1 normal heart sound, S2 normal heart sound, no murmurs, no rub and no gallops GI normal to inspection, nondistended, normoactive bowel sounds, soft to palpation, non-tender and non-distended Extremity no clubbing, cyanosis or edema Skin no rashes or lesions noted General Skin Exam: no breakdown Neuro CN's II-XII intact bilaterally and no focal motor deficits Sensorium / Orientation: awake, alert and oriented to person Psych Psych Narrative: Patient is confused and hard of hearing Lab / Micro Data 01/12/23 07:32 01/12/23 07:32 Labs: Laboratory Results - last 24 hr 01/11/23 20:47: WBC 3.7 L, RBC 2.39 L, Hgb 7.3 L, Hct 22.5 L, MCV 94.1 H, MCH 30.5, MCHC 32.4, RDW Std Deviation 52.6 H, RDW Coeff of Taniya 15.1 H, Plt Count 145 L, MPV 10.2, Immature Gran % (Auto) 1.100 H, Neut % (Auto) 61.7, Lymph % (Auto) 14.9 L, [place] % (Auto) 21.5 H, Eos % (Auto) 0.3, Baso % (Auto) 0.5, Absolute Neuts (auto) 2.3, Absolute Lymphs (auto) 0.55 L, Nucleated RBC % 0, Differential Comment SCANNED, Diff Path Review July irving, Magnesium 1.6, Iron 23 L, TIBC 165 L, Iron Saturation 13.9 L, Ferritin 2432 H, Procalcitonin 0.50 H, Blood Type A POSITIVE, Antibody Screen NEGATIVE, Crossmatch See Detail 01/11/23 22:12: Hgb 6.6 L, Hct 21.0 L 01/12/23 01:22: POC Glucose 89 01/12/23 06:49: POC Glucose 84 01/12/23 07:32: WBC 3.2 L, RBC 2.99 L, Hgb 9.1 L, Hct 27.5 L, MCV 92.0, MCH 30.4, MCHC 33.1, RDW Std Deviation 51.9 H, RDW Coeff of Taniya 15.5 H, Plt Count 130 L, MPV 9.7, Immature Gran % (Auto) 0.900, Neut % (Auto) 61.9, Lymph % (Auto) 14.3 L, [place] % (Auto) 21.7 H, Eos % (Auto) 0.6, Baso % (Auto) 0.6, Absolute Neuts (auto) 2.0, Absolute Lymphs (auto) 0.46 L, Nucleated RBC % 0, Diff Path Review July irving, PT 16.8 H, INR 1.4, APTT 33.8, Sodium 139, Potassium 4.5, Chloride 110 H, Carbon Dioxide 22.0, Anion Gap 7, BUN 24 H, Creatinine 1.15, Estim Creat Clear Calc 44.69, Est GFR (MDRD) Af Amer 78, Est GFR (MDRD) Non-Af 65, BUN/Creatinine Ratio 20.9 H, Glucose 83, Hemoglobin A1c 5.0, Calcium 7.6 L, Total Bilirubin 0.80, AST 40 H, ALT 25, Alkaline Phosphatase 154 H, Total Protein 4.7 L, Albumin 1.8 L, Globulin 2.9, Albumin/Globulin Ratio 0.6 L, TSH 3.79 H, Free T4 1.29 Micro: Microbiology 01/11/23 20:20 Mucosa - Nose Respiratory Panel (PCR) - Final 01/11/23 22:35 Urine, Clean Catch Legionella Antigen - Final 01/11/23 22:35 Urine, Clean Catch Streptococcus pneumoniae Antigen (M - Final 01/11/23 20:20 Nasal Secretion SARS-CoV-2 Antigen (Rapid) - Final SARS-CoV-2 (COVID 19) Rhythm Strip Rhythm Strip: Sinus Rhythm Rate: 82 Ectopy: None Radiology Impression Chest X-Ray 01/11/23 17:00 IMPRESSION: Right lower lobe airspace disease/pneumonia. Follow-up x-ray to document resolution recommended. Electronically Signed: Migel Michael MD ([place]) at 19:54 EDT , Brain CT 01/11/23 17:10 IMPRESSION: No acute intracranial hemorrhage or mass effect. Electronically Signed: Migel Michael MD ([place]) at 17:28 EDT , Assessment & Plan Assessment/Plan (1) Encephalopathy acute: PLAN: Plan 82-year-old with multiple comorbidities including paroxysmal atrial fibrillation/flutter, CAD status post PTCA with stents resulting in ischemic cardiomyopathy and sick sinus syndrome status post permanent pacemaker who presents with failure to thrive and discovered to have worsening anemia and thrombocytopenia. Differential diagnosis for his encephalopathy, anemia and thrombocytopenia would be underlying cirrhosis. Risk factor there is a lower heart disease and diabetes mellitus along with advanced age. He should undergo an upper endoscopy to evaluate his upper GI tract for signs of acute or chronic blood loss anemia. If that is negative then he may need a colonoscopy. He should have imaging of his abdomen with right upper quadrant ultrasound to look for signs of hepatosplenomegaly or cirrhosis with portal hypertension and splenomegaly as etiology of his thrombocytosis. Charges/Coding Visit Charges Inpatient E&M: 15196 Init Hosp L3
[2023-01-11 23:07] VITALS: BP 99/46; PULSE 76; RESP 18; TEMP 36.5; O2SAT 97
[2023-01-11 23:22] VITALS: BP 111/49; PULSE 69; RESP 18; TEMP 37; O2SAT 98
[2023-01-12] VITALS (20 sets, daily range): BP systolic 95–116; BP diastolic 48–66; PULSE 68–95; RESP 18–20; TEMP 36.3–37; O2SAT 88–100; BMI 25.8; BMI 25.7
[2023-01-12 01:47] LABS: Bedside Glucose 89 mg/dL (74-106)
[2023-01-12 07:17] LABS: Bedside Glucose 84 mg/dL (74-106)
[2023-01-12 07:43] LABS: Absolute Lymphocyte Count 0.46 X10^3/uL (0.83-4.51); Basophil# 0.02 X10^3/uL; Basophil% 0.6 % (0-1); Eosinophil# 0.02 X10^3/uL; Eosinophils% 0.6 % (0-5); Hematocrit 27.5 % (40-54); Hemoglobin 9.1 g/dL (13.0-16.5); Lymphocyte # 0.46 X10^3/ul (0.83-4.51); Lymphocyte % 14.3 % (19-41); Mean Corp Hgb Conc 33.1 g/dL (32-36); Mean Corpuscular Hgb 30.4 pg (27.0-32.0); Mean Platelet Vol. 9.7 fl (6.2-12.0); Monocyte% 21.7 % (0-10); NRBC Flagged by Analyzer 0 % (0-5); Neutrophil # 1.99 X10^3/uL (2.7-7.7); Neutrophil % 61.9 % (47-70); POSITIVE DIFFERENTIAL YES; POSITIVE MORPHOLOGY YES; Platelet Count 130 K/mm3 (150-450); RBC Distribution Width CV 15.5 % (11.6-14.6); RBC Distribution Width SD 51.9 fl (35.1-43.9); Red Blood Count 2.99 M/mm3 (4.6-6.2); White Blood Count 3.2 K/mm3 (4.4-11.0)
[2023-01-12 07:46] LABS: Differential Indicated SCAN CRITERIA MET
[2023-01-12 08:08] LABS: ALB/GLOB Ratio 0.6 RATIO (0.9-2.4); AST(SGOT) 40 U/L (15-37); Alanine Aminotransfer ALT/SGPT 25 U/L (16-61); Albumin, Serum 1.8 g/dL (3.2-5.0); Alkaline Phosphatase 154 U/L (45-117); Anion Gap 7 (5-15); BUN 24 mg/dL (7-18); BUN/Creat Ratio 20.9 RATIO (10-20); Calcium,Total 7.6 mg/dL (8.5-10.1); Chloride 110 mmol/L (98-107); Creatinine, Serum 1.15 mg/dL (0.70-1.30); EST Glomerular Filtration Rate 65 mL/min (>60); Est Glom Filt Rate - Afr Amer 78 mL/min (>60); Estimated Creatinine Clearance 44.69 ml/min; Globulin 2.9 g/dL (2.2-4.2); Glucose 83 mg/dL (74-106); Potassium 4.5 mmol/L (3.5-5.1); Protein, Total 4.7 g/dL (6.4-8.2); Sodium Level 139 mmol/L (136-145); T4 Free Direct 1.29 ng/dL (0.76-1.46); Thyroid Stim Hormone (TSH) 3.79 uIU/mL (0.358-3.74)
[2023-01-12 08:13] LABS: International Normalized Ratio 1.4; Prothrombin Time (Protime)PT. 16.8 SECONDS (11.7-14.9)
[2023-01-12 08:14] LABS: Partial Thromboplast Time 33.8 Seconds (24.1-36.2)
--- NOTE | 2023-01-12 08:47 | PN.HOSP_ITS ---
Reason for Visit Reason for Visit: Diagnoses Encephalopathy, unspecified (01/11/23) Subjective Subjective Patient was seen and examined today, he remains on room air at this time, he remains confused and he is hard of hearing. Patient's COVID-19 test was positive. Patient is currently on Zithromax and Rocephin. Objective Data Objective Data Vital Signs: Vital Signs Temp Pulse Resp BP Pulse Ox O2 Del Method 97.7 F L 79 19 H 110/52 L 93 Room Air 01/12/23 05:57 01/12/23 05:57 01/12/23 05:57 01/12/23 05:57 01/12/23 08:34 01/12/23 08:34 Oxygen Delivery Method Room Air Weight: 72.2 kg Body Mass Index (BMI) 25.7 Intake & Output: Intake and Output for Last 24 Hours 01/10/23 01/11/23 01/12/23 23:59 23:59 23:59 Intake Total 1110 / 1110 401 / 401 Output Total 150 / 150 200 / 200 Balance 960 / 960 201 / 201 Lab / Micro Data 01/12/23 07:32 01/12/23 07:32 Labs: Laboratory Results - last 24 hr 01/11/23 20:47: WBC 3.7 L, RBC 2.39 L, Hgb 7.3 L, Hct 22.5 L, MCV 94.1 H, MCH 30.5, MCHC 32.4, RDW Std Deviation 52.6 H, RDW Coeff of Taniya 15.1 H, Plt Count 145 L, MPV 10.2, Immature Gran % (Auto) 1.100 H, Neut % (Auto) 61.7, Lymph % (Auto) 14.9 L, [place] % (Auto) 21.5 H, Eos % (Auto) 0.3, Baso % (Auto) 0.5, Absolute Neuts (auto) 2.3, Absolute Lymphs (auto) 0.55 L, Nucleated RBC % 0, Differential Comment SCANNED, Diff Path Review July, Magnesium 1.6, Iron 23 L, TIBC 165 L, Iron Saturation 13.9 L, Ferritin 2432 H, Procalcitonin 0.50 H, Blood Type A POSITIVE, Antibody Screen NEGATIVE, Crossmatch See Detail 01/11/23 22:12: Hgb 6.6 L, Hct 21.0 L 01/12/23 01:22: POC Glucose 89 01/12/23 06:49: POC Glucose 84 01/12/23 07:32: WBC 3.2 L, RBC 2.99 L, Hgb 9.1 L, Hct 27.5 L, MCV 92.0, MCH 30.4, MCHC 33.1, RDW Std Deviation 51.9 H, RDW Coeff of Taniya 15.5 H, Plt Count 130 L, MPV 9.7, Immature Gran % (Auto) 0.900, Neut % (Auto) 61.9, Lymph % (Auto) 14.3 L, [place] % (Auto) 21.7 H, Eos % (Auto) 0.6, Baso % (Auto) 0.6, Absolute Neuts (auto) 2.0, Absolute Lymphs (auto) 0.46 L, Nucleated RBC % 0, PT 16.8 H, INR 1.4, APTT 33.8, Sodium 139, Potassium 4.5, Chloride 110 H, Carbon Dioxide 22.0, Anion Gap 7, BUN 24 H, Creatinine 1.15, Estim Creat Clear Calc 44.69, Est GFR (MDRD) Af Amer 78, Est GFR (MDRD) Non-Af 65, BUN/Creatinine Ratio 20.9 H, Glucose 83, Hemoglobin A1c 5.0, Calcium 7.6 L, Total Bilirubin 0.80, AST 40 H, ALT 25, Alkaline Phosphatase 154 H, Total Protein 4.7 L, Albumin 1.8 L, Globulin 2.9, Albumin/Globulin Ratio 0.6 L, TSH 3.79 H, Free T4 1.29 Micro: Microbiology 01/11/23 20:20 Mucosa - Nose Respiratory Panel (PCR) - Final 01/11/23 22:35 Urine, Clean Catch Legionella Antigen - Final 01/11/23 22:35 Urine, Clean Catch Streptococcus pneumoniae Antigen (M - Final 01/11/23 20:20 Nasal Secretion SARS-CoV-2 Antigen (Rapid) - Final SARS-CoV-2 (COVID 19) Radiography Diagnostic Testing: Radiology Impression Chest X-Ray 01/11/23 17:00 IMPRESSION: Right lower lobe airspace disease/pneumonia. Follow-up x-ray to document resolution recommended. Electronically Signed: Migel Michael MD ([place]) at 19:54 EDT , Brain CT 01/11/23 17:10 IMPRESSION: No acute intracranial hemorrhage or mass effect. Electronically Signed: Migel Michael MD ([place]) at 17:28 EDT , Rhythm Strip Rhythm Strip: Sinus Rhythm Rate: 82 Ectopy: None Physical Exam Const alert and no apparent distress Constitutional Narrative: Patient appears older than stated age, he is hard of hearing General Appearance: cooperative, well kempt and well developed Orientation / Consciousness: awake HEENT normocephalic, head/scalp atraumatic and moist oral mucous membranes Eyes PERRL, EOMs intact bilaterally and conjunctivae normal Neck supple, no JVD, thyroid normal and no carotid bruits General: trachea midline Resp normal respiratory effort, no retractions, no use of accessory muscles and clear to auscultation bilaterally Auscultation: Negative for rales, rhonchi or wheezes Cardio regular rate, regular rhythm, S1 normal heart sound, S2 normal heart sound, no murmurs, no rub and no gallops GI normal to inspection, nondistended, normoactive bowel sounds, soft to palpation, non-tender and non-distended Extremity no clubbing, cyanosis or edema Skin no rashes or lesions noted General Skin Exam: no breakdown Neuro CN's II-XII intact bilaterally and no focal motor deficits Sensorium / Orientation: awake, alert and oriented to person Psych Psych Narrative: Patient is confused and hard of hearing Assessment & Plan Assessment/Plan (1) Generalized weakness: PLAN: Plan 1. Right lower lobe pneumonia-it is unknown whether this pneumonia is due to his COVID-19 or if it could be a community-acquired pneumonia, I have elected to keep the patient on his current antibiotic coverage, repeat chest x-ray will be performed tomorrow #2 anemia-etiology unclear, patient received 2 units of packed red blood cells, he will be seen in consultation by gastroenterology for endoscopy, CBC will be repeated tomorrow. Patient is on IV Protonix #3 COVID-19 infection-I have elected to place patient on dexamethasone, he is not currently hypoxic and I have elected not to place him on remdesivir. #4 dementia-complicates care, medical course, recovery, and prognosis #5 hypothyroidism-patient is on Synthroid #6 type 2 diabetes-patient is on sliding scale insulin with fingerstick blood sugars Patient may need placement in a long-term facility at the time of discharge from the hospital currently he is living in assisted living Total clinical time spent by myself addressing the patient's medical issues, reviewing all his data, and collaborating with patient's care team: 35-minute Charges/Coding Visit Charges Inpatient E&M: 59609 Subs Hosp L2
[2023-01-12] MEDS: Pantoprazole Sodium 40 MG in 0.9% Normal Saline (100mL MB+) 100 ML 330 MG IV ×2 (09:38→19:53)
[2023-01-12] MEDS: Ceftriaxone 1 GM/50 ML BAG IV (09:42)
[2023-01-12] MEDS: Azithromycin 500 MG in Dextrose 5%-Water (250mL Bag) 250 ML 250 MG IV (09:42)
[2023-01-12] MEDS: Menthol/Lanolin/Calamine/Znox 113 GM Tube 1 APPLIC TOPICAL ×3 (10:19→19:53)
--- NOTE | 2023-01-12 11:45 | NURSING ---
Pt off floor to Endo
--- NOTE | 2023-01-12 12:04 | OP.CCLET_ITS ---
01/12/2023 Harshil Franklin Re : Upper GI endoscopy procedure for Faustino Montez Rigoberto This procedure was performed on Thursday, January 12, 2023. My impressions and recommendations are as follows: Impressions : - Normal esophagus. - Hiatal hernia. 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 Treated with a heater probe. - Multiple non-bleeding duodenal ulcers with no stigmata of bleeding. - No specimens collected. Recommendations : - [facility]. - Advance diet as tolerated. - Continue present medications. My findings are described in the full procedure note, which is enclosed. If I can be of further assistance, please feel free to contact me at . Sincerely, Americo Bower, 01/12/2023 12:04:19 PM This report has been signed electronically.
--- NOTE | 2023-01-12 12:04 | OP.EGD_ITS ---
Patient Name: Faustino Ulloa Procedure Date: 01/12/2023 11:43 AM Date of : 1940 Age: 82 Procedure: Upper GI endoscopy Indications: Iron deficiency anemia Providers: Americo Bower DO Medicines: Monitored Anesthesia Care Patient Profile: This is an 82 year old male. Refer to note in patient chart for documentation of history and physical. Patient has symptoms of acute dyspepsia. Complications: No immediate complications. Procedure: Pre-Anesthesia Assessment: - Prior to the procedure, a History and Physical was performed, and patient medications and allergies were reviewed. The patient is competent. The risks and benefits of the procedure and the sedation options and risks were discussed with the patient. All questions were answered and informed consent was obtained. Patient identification and proposed procedure were verified by the physician in the pre-procedure area. Mental Status Examination: alert and oriented. Airway Examination: normal oropharyngeal airway and neck mobility. Respiratory Examination: clear to auscultation. CV Examination: normal. Prophylactic Antibiotics: The patient does not require prophylactic antibiotics. Prior Anticoagulants: The patient has taken no previous anticoagulant or antiplatelet agents. ASA Grade Assessment: IV - A patient with severe systemic disease that is a constant threat to life. After reviewing the risks and benefits, the patient was deemed in satisfactory condition to undergo the procedure. The anesthesia plan was to use monitored anesthesia care (MAC). Immediately prior to administration of medications, the patient was re-assessed for adequacy to receive sedatives. The heart rate, respiratory rate, oxygen saturations, blood pressure, adequacy of pulmonary ventilation, and response to care were monitored throughout the procedure. The physical status of the patient was re-assessed after the procedure. After obtaining informed consent, the endoscope was passed under direct vision. Throughout the procedure, the patient's blood pressure, pulse, and oxygen saturations were monitored continuously. The Endoscope was introduced through the mouth, and advanced to the second part of duodenum. The upper GI endoscopy was accomplished without difficulty. The patient tolerated the procedure well. Scope In: 11:57:06 AM Scope Out: 12:00:55 PM Total Procedure Duration Time 0 hours 3 minutes 49 seconds Findings: The examined esophagus was normal. A hiatal hernia was present. 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 Coagulation for hemostasis using heater probe was successful. Estimated blood loss was minimal. Many non-bleeding linear duodenal ulcers with no stigmata of bleeding were found in the duodenal bulb, in the first portion of the duodenum, in the second portion of the duodenum and in the third portion of the duodenum. The largest lesion was 4 mm in largest dimension. Impression: - Normal esophagus. - Hiatal hernia. 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 Treated with a heater probe. - Multiple non-bleeding duodenal ulcers with no stigmata of bleeding. - No specimens collected. Recommendation: - Return patient to [facility] for [facility] care. - Advance diet as tolerated. - Continue present medications. Procedure Code(s): --- Professional --- 41710, Esophagogastroduodenoscopy, flexible, transoral; with control of bleeding, any method CPT copyright 2021 [employer]. All rights reserved. The codes documented in this report are preliminary and upon head baggage porter review may be revised to meet current compliance requirements. Americo Bower DO 01/12/2023 12:04:19 PM This report has been signed electronically. Number of Addenda: 0 Note Initiated On: 01/12/2023 11:43 AM
--- NOTE | 2023-01-12 12:30 | NURSING ---
Pt returned to floor. Water provided, patient refuses diet at this time. Vitals obtained, no additional needs.
[2023-01-12 13:34] LABS: Hematocrit 28.2 % (40-54); Hemoglobin 9.1 g/dL (13.0-16.5)
[2023-01-12] MEDS: dexAMETHasone 4 MG Tablet 6 MG PO (14:07)
[2023-01-12 14:31] LABS: Bedside Glucose 90 mg/dL (74-106)
[2023-01-12] MEDS: Atorvastatin Calcium 40 MG Tablet PO (19:53)
[2023-01-12] MEDS: Glycerin/Hypromellose/PEG400 15 ml Bottle 1 DRP EACH EYE (19:53)
[2023-01-12 22:17] LABS: Bedside Glucose 114 mg/dL (74-106)
[2023-01-13] VITALS (7 sets, daily range): BP systolic 109–138; BP diastolic 54–88; PULSE 76–94; RESP 16–18; TEMP 36.1–36.4; O2SAT 94–99; BMI 26.4
[2023-01-13 01:37] LABS: Bedside Glucose 141 mg/dL (74-106)
[2023-01-13] MEDS: Levothyroxine 75 MCG Tablet PO (06:05)
[2023-01-13 06:30] LABS: Bedside Glucose 156 mg/dL (74-106)
[2023-01-13 07:01] LABS: Hematocrit 33.9 % (40-54)
[2023-01-13] MEDS: Pantoprazole Sodium 40 MG in 0.9% Normal Saline (100mL MB+) 100 ML 330 MG IV ×2 (09:45→22:59)
--- NOTE | 2023-01-13 09:46 | PN.HOSP_ITS ---
Reason for Visit Reason for Visit: Diagnoses Encephalopathy, unspecified (01/11/23) Weakness (01/11/23) Objective Data Objective Data Vital Signs: Vital Signs Temp Pulse Resp BP Pulse Ox O2 Del Method 36.2 C L 88 18 122/88 H 97 Room Air 01/13/23 06:07 01/13/23 06:07 01/13/23 06:07 01/13/23 06:07 01/13/23 06:07 01/13/23 06:07 Oxygen Delivery Method Room Air Weight: 74.1 kg Body Mass Index (BMI) 26.4 Intake & Output: Intake and Output for Last 24 Hours 01/11/23 01/12/23 01/13/23 23:59 23:59 23:59 Intake Total 1110 / 1110 1226 / 1226 Output Total 150 / 150 200 / 600 600 / 600 Balance 960 / 960 1026 / 626 -600 / -600 Medical Nutrition Assessment Dietitian: Malnutrition Criteria Met Start: 01/12/23 15:34 Freq: Status: Active Protocol: Document 01/12/23 15:34 RMA (Rec: 01/12/23 15:34 RMA [id number]) Nutrition Malnutrition Evidence of Malnutrition Exists Yes Malnutrition (severe): Chronic Evidenced By Suboptimal Energy Intake ( Severe),Weight Loss (Severe) Clinical Problem Chronic Disease or Condition Related Malnutrition Etiology Severe protein-calorie malnutrition in the context of chronic disease and debility related to inadequate oral/ energy intake Signs/Symptoms as evidenced by ~18% weight loss x past 5-6 months and suspected PO meeting less than 50% estimated nutrition needs Status Active Problem Recommendation Dietitian Recommendations/Changes Continue liberalized regular diet. Will add magic cup w/ lunch and dinner. Will add 120mL ensure plus high protein TID w/ meals. Lab / Micro Data 01/13/23 06:45 01/12/23 07:32 Labs: Laboratory Results - last 24 hr 01/12/23 13:18: Hgb 9.1 L, Hct 28.2 L 01/12/23 14:06: POC Glucose 90 01/12/23 19:45: POC Glucose 114 H 01/13/23 01:08: POC Glucose 141 H 01/13/23 06:01: POC Glucose 156 H 01/13/23 06:45: Hgb 11.0 L, Hct 33.9 L Micro: Microbiology 01/11/23 20:20 Mucosa - Nose Respiratory Panel (PCR) - Final 01/11/23 22:35 Urine, Clean Catch Legionella Antigen - Final 01/11/23 22:35 Urine, Clean Catch Streptococcus pneumoniae Antigen (M - Final 01/11/23 20:20 Nasal Secretion SARS-CoV-2 Antigen (Rapid) - Final SARS-CoV-2 (COVID 19) Rhythm Strip Rhythm Strip: Sinus Rhythm Rate: 82 Ectopy: None Assessment & Plan Assessment/Plan (1) Generalized weakness: PLAN: Plan 1. Right lower lobe pneumonia-it is unknown whether this pneumonia is due to his COVID-19 or if it could be a community-acquired pneumonia, I have elected to keep the patient on his current antibiotic coverage, repeat chest x-ray will be performed tomorrow #2 anemia-etiology unclear, patient received 2 units of packed red blood cells, he will be seen in consultation by gastroenterology for endoscopy, CBC will be repeated tomorrow. Patient is on IV Protonix #3 COVID-19 infection-I have elected to place patient on dexamethasone, he is not currently hypoxic and I have elected not to place him on remdesivir. #4 dementia-complicates care, medical course, recovery, and prognosis #5 hypothyroidism-patient is on Synthroid #6 type 2 diabetes-patient is on sliding scale insulin with fingerstick blood sugars Patient may need placement in a custodial facility at the time of discharge from the hospital currently he is living in assisted living
--- NOTE | 2023-01-13 09:46 | PCM.PN.HOSP ---
Reason for Visit Reason for Visit: Diagnoses Encephalopathy, unspecified (01/11/23) Weakness (01/11/23) Subjective Subjective Denies complaints. Objective Data Objective Data Vital Signs: Vital Signs Temp Pulse Resp BP Pulse Ox O2 Del Method 36.2 C L 88 18 122/88 H 97 Room Air 01/13/23 06:07 01/13/23 06:07 01/13/23 06:07 01/13/23 06:07 01/13/23 06:07 01/13/23 06:07 Oxygen Delivery Method Room Air Weight: 74.1 kg Body Mass Index (BMI) 26.4 Intake & Output: Intake and Output for Last 24 Hours 01/11/23 01/12/23 01/13/23 23:59 23:59 23:59 Intake Total 1110 / 1110 1226 / 1226 Output Total 150 / 150 200 / 600 600 / 600 Balance 960 / 960 1026 / 626 -600 / -600 Medical Nutrition Assessment Dietitian: Malnutrition Criteria Met Start: 01/12/23 15:34 Freq: Status: Active Protocol: Document 01/12/23 15:34 RMA (Rec: 01/12/23 15:34 RMA [id number]) Nutrition Malnutrition Evidence of Malnutrition Exists Yes Malnutrition (severe): Chronic Evidenced By Suboptimal Energy Intake ( Severe),Weight Loss (Severe) Clinical Problem Chronic Disease or Condition Related Malnutrition Etiology Severe protein-calorie malnutrition in the context of chronic disease and debility related to inadequate oral/ energy intake Signs/Symptoms as evidenced by ~18% weight loss x past 5-6 months and suspected PO meeting less than 50% estimated nutrition needs Status Active Problem Recommendation Dietitian Recommendations/Changes Continue liberalized regular diet. Will add magic cup w/ lunch and dinner. Will add 120mL ensure plus high protein TID w/ meals. Lab / Micro Data 01/13/23 06:45 01/12/23 07:32 Labs: Laboratory Results - last 24 hr 01/12/23 13:18: Hgb 9.1 L, Hct 28.2 L 01/12/23 14:06: POC Glucose 90 01/12/23 19:45: POC Glucose 114 H 01/13/23 01:08: POC Glucose 141 H 01/13/23 06:01: POC Glucose 156 H 01/13/23 06:45: Hgb 11.0 L, Hct 33.9 L Micro: Microbiology 01/11/23 20:20 Mucosa - Nose Respiratory Panel (PCR) - Final 01/11/23 22:35 Urine, Clean Catch Legionella Antigen - Final 01/11/23 22:35 Urine, Clean Catch Streptococcus pneumoniae Antigen (M - Final 01/11/23 20:20 Nasal Secretion SARS-CoV-2 Antigen (Rapid) - Final SARS-CoV-2 (COVID 19) Rhythm Strip Rhythm Strip: Sinus Rhythm Rate: 82 Ectopy: None Physical Exam Const alert and no apparent distress HEENT head/scalp atraumatic and moist oral mucous membranes HEENT Narrative: edentulous. Resp normal respiratory effort, no retractions, no use of accessory muscles and clear to auscultation bilaterally Cardio regular rate, regular rhythm, S1 normal heart sound and S2 normal heart sound GI normal to inspection, nondistended, normoactive bowel sounds, soft to palpation, non-tender and non-distended Extremity normal to inspection Assessment & Plan Assessment/Plan (1) Pneumonia: QUALIFIERS: Pneumonia type: due to unspecified organism PLAN: RLL pneumonia Strep and legionella negative CTX and azithromycin PEP (2) COVID-19: PLAN: On dexamethasone Positive on 01/11. Unclear on time of onset. Quaratine through 01/21. 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 Treated with a heater probe. Multiple non-bleeding duodenal ulcers with no stigmata of bleeding. on pantoprazole PLAN: Plan Chronic conditions: dementia-complicates care, medical course, recovery, and prognosis hypothyroidism-patient is on Synthroid type 2 diabetes-patient is on sliding scale insulin with fingerstick blood sugars VTE prophylaxis: SCDs Disposition: to SNF. Charges/Coding Visit Charges Inpatient E&M: 61074 Subs Hosp L2
[2023-01-13] MEDS: Azithromycin 500 MG in Dextrose 5%-Water (250mL Bag) 250 ML 250 MG IV (09:47)
[2023-01-13] MEDS: dexAMETHasone 4 MG Tablet 6 MG PO (09:49)
[2023-01-13] MEDS: Menthol/Lanolin/Calamine/Znox 113 GM Tube 1 APPLIC TOPICAL ×2 (09:56→14:36)
[2023-01-13] MEDS: Ceftriaxone 1 GM/50 ML BAG IV (10:07)
--- NOTE | 2023-01-13 10:52 | CASEMGMT ---
Discharge Planning Updates sent to [facility] via fax. Desirae Keys, Discharge Planning Asst.
--- NOTE | 2023-01-13 11:27 | CASEMGMT ---
RN told CATARINA that patient's sister, Amy is concerned about patient returning to assisted living in his condition. CATARINA called Amy as patient is confused. CATARINA introduced self and role at [facility]. Amy confirmed that she feels patient should go somewhere for rehab. She was not sure where. CATARINA let Amy know SW will leave a list of SNF options in patient's room. CATARINA let Amy know she would need to pick 3 places she would be okay with and SW will take care of contacting the facilities. SW left a list of?alf facility providers including quality and resource use data and consistent with patient?s preferred geographic region, medical needs, and insurance network were provided from the [facility] Guide in patient's room. Gina GARDNER
[2023-01-13] MEDS: Insulin Lispro 100 UNIT/ML INSULN.PEN SC ×3 (14:34→23:00)
[2023-01-13 14:55] LABS: Bedside Glucose 315 mg/dL (74-106)
--- NOTE | 2023-01-13 15:18 | CASEMGMT ---
CATARINA received a call from Myesha with [facility]. CATARINA updated Myesha on patient's admission and possible d/c plan. Myesha asked CATARINA to update her when patient is discharged. Myesha [phone]. Gina GARDNER
[2023-01-13] MEDS: Haloperidol Lactate 5 MG/ML Vial 1 MG IV (16:13)
[2023-01-13 18:38] LABS: Bedside Glucose 341 mg/dL (74-106)
--- NOTE | 2023-01-13 21:32 | EX.PCM.PN.GI ---
Subjective Subjective He underwent an egd yesterday for Blood loss for anemia. There was no sign of bleeding overnight.o Objective Data Objective Data Vital Signs: Vital Signs Temp Pulse Resp BP Pulse Ox O2 Del Method 97.3 F L 81 16 121/63 H 99 Room Air 01/13/23 17:30 01/13/23 17:30 01/13/23 17:30 01/13/23 17:30 01/13/23 17:30 01/13/23 17:30 Oxygen Delivery Method Room Air Weight: 163 lb 5.8 oz Body Mass Index (BMI) 26.4 Intake & Output: Intake and Output for Last 24 Hours 01/11/23 01/12/23 01/13/23 23:59 23:59 23:59 Intake Total 1110 / 1110 1226 / 1226 935 / 935 Output Total 150 / 150 200 / 600 850 / 850 Balance 960 / 960 1026 / 626 85 / 85 Medical Nutrition Assessment Dietitian: Malnutrition Criteria Met Start: 01/12/23 15:34 Freq: Status: Active Protocol: Document 01/12/23 15:34 RMA (Rec: 01/12/23 15:34 RMA [id number]) Nutrition Malnutrition Evidence of Malnutrition Exists Yes Malnutrition (severe): Chronic Evidenced By Suboptimal Energy Intake ( Severe),Weight Loss (Severe) Clinical Problem Chronic Disease or Condition Related Malnutrition Etiology Severe protein-calorie malnutrition in the context of chronic disease and debility related to inadequate oral/ energy intake Signs/Symptoms as evidenced by ~18% weight loss x past 5-6 months and suspected PO meeting less than 50% estimated nutrition needs Status Active Problem Recommendation Dietitian Recommendations/Changes Continue liberalized regular diet. Will add magic cup w/ lunch and dinner. Will add 120mL ensure plus high protein TID w/ meals. Lab / Micro Data 01/13/23 06:45 01/12/23 07:32 Labs: Laboratory Results - last 24 hr 01/12/23 19:45: POC Glucose 114 H 01/13/23 01:08: POC Glucose 141 H 01/13/23 06:01: POC Glucose 156 H 01/13/23 06:45: Hgb 11.0 L, Hct 33.9 L 01/13/23 14:26: POC Glucose 315 H 01/13/23 17:38: POC Glucose 341 H Micro: Microbiology 01/11/23 20:20 Mucosa - Nose Respiratory Panel (PCR) - Final 01/11/23 22:35 Urine, Clean Catch Legionella Antigen - Final 01/11/23 22:35 Urine, Clean Catch Streptococcus pneumoniae Antigen (M - Final 01/11/23 20:20 Nasal Secretion SARS-CoV-2 Antigen (Rapid) - Final SARS-CoV-2 (COVID 19) Rhythm Strip Rhythm Strip: Sinus Rhythm Rate: 82 Ectopy: None Physical Exam Const alert and no apparent distress HEENT head/scalp atraumatic and moist oral mucous membranes HEENT Narrative: edentulous. Resp normal respiratory effort, no retractions, no use of accessory muscles and clear to auscultation bilaterally Cardio regular rate, regular rhythm, S1 normal heart sound and S2 normal heart sound GI normal to inspection, nondistended, normoactive bowel sounds, soft to palpation, non-tender and non-distended Extremity normal to inspection Assessment & Plan Assessment/Plan (1) Acute blood loss anemia: PLAN: Findings: A hiatal hernia was present. 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 Coagulation for hemostasis using heater probe was successful. Estimated blood loss was minimal. Many non-bleeding linear duodenal ulcers with no stigmata of bleeding were found in the duodenal bulb, in the first portion of the duodenum, in the second portion of the duodenum and in the third portion of the duodenum. The largest lesion was 4 mm in largest dimension. Hemoglobin is improved. He is doing well from a gi standpoint. No nsaids Charges/Coding Visit Charges Inpatient E&M: 54078 Subs Hosp L3
[2023-01-13] MEDS: Glycerin/Hypromellose/PEG400 15 ml Bottle 1 DRP EACH EYE (23:00)
[2023-01-14] VITALS (9 sets, daily range): BP systolic 97–115; BP diastolic 43–92; PULSE 63–87; RESP 16–22; TEMP 36.6–36.9; O2SAT 94–99; BMI 26.1
[2023-01-14] MEDS: Haloperidol Lactate 5 MG/ML Vial 1 MG IV (01:33)
[2023-01-14 03:21] LABS: Bedside Glucose 230 mg/dL (74-106)
[2023-01-14 05:46] LABS: Absolute Lymphocyte Count 0.67 X10^3/uL (0.83-4.51); Absolute Neutrophil Count 5.8 X10^3/uL (2.0-7.7); Basophil# 0.01 X10^3/uL; Basophil% 0.1 % (0-1); Hematocrit 28.7 % (40-54); Hemoglobin 9.4 g/dL (13.0-16.5); Lymphocyte # 0.67 X10^3/ul (0.83-4.51); Lymphocyte % 9.4 % (19-41); Mean Corp Hgb Conc 32.8 g/dL (32-36); Mean Corpuscular Hgb 30.1 pg (27.0-32.0); Mean Platelet Vol. 9.8 fl (6.2-12.0); Monocyte# 0.54 X10^3/uL; Monocyte% 7.6 % (0-10); NRBC Flagged by Analyzer 0 % (0-5); Neutrophil # 5.83 X10^3/uL (2.7-7.7); Neutrophil % 81.8 % (47-70); Platelet Count 150 K/mm3 (150-450); RBC Distribution Width CV 15.8 % (11.6-14.6); RBC Distribution Width SD 53.1 fl (35.1-43.9); Red Blood Count 3.12 M/mm3 (4.6-6.2); White Blood Count 7.1 K/mm3 (4.4-11.0)
[2023-01-14 06:17] LABS: Anion Gap 5 (5-15); BUN 39 mg/dL (7-18); BUN/Creat Ratio 28.3 RATIO (10-20); Calcium,Total 8.2 mg/dL (8.5-10.1); Chloride 113 mmol/L (98-107); Creatinine, Serum 1.38 mg/dL (0.70-1.30); EST Glomerular Filtration Rate 52 mL/min (>60); Est Glom Filt Rate - Afr Amer 63 mL/min (>60); Estimated Creatinine Clearance 37.24 ml/min; Glucose 174 mg/dL (74-106); Potassium 4.4 mmol/L (3.5-5.1); Sodium Level 139 mmol/L (136-145)
[2023-01-14] MEDS: Insulin Lispro 100 UNIT/ML INSULN.PEN SC ×2 (06:52→11:46)
[2023-01-14 07:13] LABS: Bedside Glucose 152 mg/dL (74-106)
--- NOTE | 2023-01-14 09:01 | PN.HOSP_ITS ---
Reason for Visit Reason for Visit: Diagnoses Acute posthemorrhagic anemia (01/11/23) Encephalopathy, unspecified (01/11/23) Pneumonia, unspecified organism (01/11/23) Weakness (01/11/23) COVID-19 (01/11/23) Subjective Subjective Agitation overnight. Has required haloperidol PRN. Today, became weak and a stroke team called. No focal deficits were identified and the stroke team was canceled. Objective Data Objective Data Vital Signs: Vital Signs Temp Pulse Resp BP Pulse Ox O2 Del Method 36.6 C 72 18 100/53 L 94 Room Air 01/14/23 05:22 01/14/23 05:22 01/14/23 05:22 01/14/23 05:22 01/14/23 08:51 01/14/23 08:51 Oxygen Delivery Method Room Air Weight: 73.5 kg Body Mass Index (BMI) 26.1 Intake & Output: Intake and Output for Last 24 Hours 01/12/23 01/13/23 01/14/23 23:59 23:59 23:59 Intake Total 1226 / 1226 1045 / 1045 Output Total 200 / 600 850 / 850 150 / 150 Balance 1026 / 626 195 / 195 -150 / -150 Medical Nutrition Assessment Dietitian: Malnutrition Criteria Met Start: 01/12/23 15:34 Freq: Status: Active Protocol: Document 01/12/23 15:34 RMA (Rec: 01/12/23 15:34 RMA [id number]) Nutrition Malnutrition Evidence of Malnutrition Exists Yes Malnutrition (severe): Chronic Evidenced By Suboptimal Energy Intake ( Severe),Weight Loss (Severe) Clinical Problem Chronic Disease or Condition Related Malnutrition Etiology Severe protein-calorie malnutrition in the context of chronic disease and debility related to inadequate oral/ energy intake Signs/Symptoms as evidenced by ~18% weight loss x past 5-6 months and suspected PO meeting less than 50% estimated nutrition needs Status Active Problem Recommendation Dietitian Recommendations/Changes Continue liberalized regular diet. Will add magic cup w/ lunch and dinner. Will add 120mL ensure plus high protein TID w/ meals. Lab / Micro Data 01/14/23 05:39 01/14/23 05:39 Labs: Laboratory Results - last 24 hr 01/13/23 14:26: POC Glucose 315 H 01/13/23 17:38: POC Glucose 341 H 01/13/23 22:54: POC Glucose 230 H 01/14/23 05:39: WBC 7.1, RBC 3.12 L, Hgb 9.4 L, Hct 28.7 L, MCV 92.0, MCH 30.1, MCHC 32.8, RDW Std Deviation 53.1 H, RDW Coeff of Taniya 15.8 H, Plt Count 150, MPV 9.8, Immature Gran % (Auto) 1.100 H, Neut % (Auto) 81.8 H, Lymph % (Auto) 9.4 L, [place] % (Auto) 7.6, Eos % (Auto) 0.0, Baso % (Auto) 0.1, Absolute Neuts (auto) 5.8, Absolute Lymphs (auto) 0.67 L, Nucleated RBC % 0, Sodium 139, Potassium 4.4, Chloride 113 H, Carbon Dioxide 21.0, Anion Gap 5, BUN 39 H, Creatinine 1.38 H, Estim Creat Clear Calc 37.24, Est GFR (MDRD) Af Amer 63, Est GFR (MDRD) Non- Af 52 L, BUN/Creatinine Ratio 28.3 H, Glucose 174 H, Calcium 8.2 L 01/14/23 06:51: POC Glucose 152 H Micro: Microbiology 01/11/23 20:20 Mucosa - Nose Respiratory Panel (PCR) - Final 01/11/23 22:35 Urine, Clean Catch Legionella Antigen - Final 01/11/23 22:35 Urine, Clean Catch Streptococcus pneumoniae Antigen (M - Final 01/11/23 20:20 Nasal Secretion SARS-CoV-2 Antigen (Rapid) - Final SARS-CoV-2 (COVID 19) Rhythm Strip Rhythm Strip: Sinus Rhythm Rate: 82 Ectopy: None Physical Exam Const alert Orientation / Consciousness: confused HEENT head/scalp atraumatic and moist oral mucous membranes Resp normal respiratory effort, no retractions, no use of accessory muscles and clear to auscultation bilaterally Cardio regular rate, regular rhythm, S1 normal heart sound and S2 normal heart sound GI normal to inspection, nondistended, normoactive bowel sounds, soft to palpation, non-tender and non-distended Extremity normal to inspection Neuro moves all extremities and no focal motor deficits Assessment & Plan Assessment/Plan (1) Pneumonia: QUALIFIERS: Pneumonia type: due to unspecified organism Laterality: unspecified laterality Lung location: unspecified part of lung Qualified Code(s): J18.9 - Pneumonia, unspecified organism PLAN: RLL pneumonia Strep and legionella negative CTX and azithromycin PEP (2) COVID-19: PLAN: On dexamethasone. Will dc given encephalopathy. Positive on 01/11. Unclear on time of onset. Quaratine through 01/21. 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 Treated with a heater probe. Multiple non-bleeding duodenal ulcers with no stigmata of bleeding. on pantoprazole (4) Encephalopathy acute: PLAN: CT showed no acute process. Suspect pt has dementia, but unknown baseline Will dc steroids as he appears to be stable from a COVID 19 standpoint and may be contributing to confusion. PRN haloperidol PLAN: Plan Chronic conditions: * dementia-complicates care, medical course, recovery, and prognosis * hypothyroidism-patient is on Synthroid * type 2 diabetes-patient is on sliding scale insulin with fingerstick blood sugars VTE prophylaxis: SCDs Disposition: to SNF. Charges/Coding Visit Charges Inpatient E&M: 46656 Subs Hosp L2
[2023-01-14] MEDS: Menthol/Lanolin/Calamine/Znox 113 GM Tube 1 APPLIC TOPICAL (09:08)
[2023-01-14] MEDS: 0.9% Saline Lock 10 ML Syringe IV ×2 (09:08→10:18)
[2023-01-14] MEDS: Pantoprazole Sodium 40 MG in 0.9% Normal Saline (100mL MB+) 100 ML 330 MG IV ×2 (09:19→22:14)
[2023-01-14 10:18] LABS: Pathologist Review Reviewed
[2023-01-14] MEDS: Ceftriaxone 1 GM/50 ML BAG IV (10:18)
[2023-01-14 10:19] LABS: Pathologist Review Reviewed
[2023-01-14] MEDS: Azithromycin 500 MG in Dextrose 5%-Water (250mL Bag) 250 ML 250 MG IV (11:03)
[2023-01-14] MEDS: dexAMETHasone 4 MG Tablet 6 MG PO (11:03)
[2023-01-14 12:12] LABS: Bedside Glucose 269 mg/dL (74-106)
--- NOTE | 2023-01-14 12:20 | CT_ITS ---
We are attempting to reach an attending provider to discuss findings. An addendum with communication details will be sent when the communication is complete. STUDY: CT HEAD STROKE PROTOCOL W/O CONTRAST INJECTION REASON FOR EXAM: Male, 82 years old. r/o stroke RADIATION DOSAGE (If Supplied By Facility): CTDIvol = ( 44.99 ) mGy, DLP = ( 779.24 ) mGycm TECHNIQUE: Transaxial CT imaging of the brain was performed without administration of intravenous contrast material. Individualized dose optimization techniques were used for this CT. COMPARISON: Comparison is made with prior study dated January 11, 2023. FINDINGS: Normal soft tissue structures. Normal calvarium. There is moderate cerebral atrophy with widening of the extra-axial spaces and ventricular dilatation. There are areas of decreased attenuation within the white matter tracts of the supratentorial brain, consistent with microvascular disease changes. Normal basal ganglia and thalami. Normal brainstem. Normal cerebellum. There is no intracranial hemorrhage. There are no findings of an acute ischemic infarction. Atherosclerotic vascular calcification of the vertebral arteries and cavernous portions of the internal carotid arteries bilaterally. Air-fluid level in the right maxillary sinus. Mucosal thickening of the left maxillary sinus and the ethmoid sinuses bilaterally as well as the left frontal and left sphenoid sinus. ASPECT score: 10 CT/STROKE Brain/Head without Cont IMPRESSION: Chronic involutional changes of the brain. Sinusitis. Electronically Signed: Vaibhav Magaña MD at 13:04 EDT ,
--- NOTE | 2023-01-14 12:55 | NURSING ---
Nurse called to room by therapy and sitter with change in status and decline unable to follow commands, worsened confusion and garbled speech, and weakness. stroke alert called and MD assessed pt at bedside and cancelled stroke alert and gave verbal order for stat brain CT.
--- NOTE | 2023-01-14 13:59 | CASEMGMT ---
Patient is confused. Per patient's sister patient does not have a Healthcare Power of [facility] or Healthcare Living Will. Gina Mir DIRECT RESPONSE CONSULTANT KENDRA
--- NOTE | 2023-01-14 14:49 | CASEMGMT ---
CATARINA called patient's sister, Amy to ask if she has had time to look over the [facility] facility list. Amy said she could not find the list in the room. CATARINA told Amy [facility] will print another list and leave it on the window ledge. Amy said that would be fine. Gina GARDNER
--- NOTE | 2023-01-14 15:16 | CHAPLAIN ---
Type of Pastoral Visit ___ Initial Visit ___ Follow-up Visit ___ On-call Visit ___ General Patient Visit ___ Spiritual Assessment ___ Family Conference ___ Bereavement ___ Rapid Response ___ Code Blue ___ Other (describe below) Pastoral Care Referral From ___ Patient ___ Family ___ Nurse ___ Physician ___ Machines Technician ___ Cold Rolling Coordinator ___ Other (describe below) Sacrament/Intervention ___ Active listening ___ Anointing ___ Orthodox ___ Bereavement ___ Communion ___ Stephanie exploration ___ ___ Life review ___ Prayer ___ Reconciliation ___ Sacrament of Sick ___ Supportive presence ___ Wedding ___ Other (describe below) Pastoral Comments responded to stroke alert in PCU and this patient was being attended to by medical team; no family member is present; pt is in COVID precautions and so this rubber compounder did not enter room; SW also is available; stroke alert was soon cancelled; will be available as needed
--- NOTE | 2023-01-14 18:00 | NURSING ---
pt refused 1800 blood sugar check and insulin.
[2023-01-14] MEDS: 0.9% Normal Saline (1000mL) 1,000 ML 999 ML IV (18:15)
[2023-01-14] MEDS: Glycerin/Hypromellose/PEG400 15 ml Bottle 1 DRP EACH EYE (22:07)
[2023-01-15] VITALS (8 sets, daily range): BP systolic 91–128; BP diastolic 49–72; PULSE 68–104; RESP 15–20; TEMP 36.1–36.8; O2SAT 95–100; BMI 26.5
[2023-01-15 00:03] LABS: Bedside Glucose 165 mg/dL (74-106)
[2023-01-15] MEDS: Levothyroxine 75 MCG Tablet PO (06:03)
[2023-01-15 06:20] LABS: Absolute Lymphocyte Count 0.65 X10^3/uL (0.83-4.51); Absolute Neutrophil Count 6.2 X10^3/uL (2.0-7.7); Basophil# 0.01 X10^3/uL; Basophil% 0.1 % (0-1); Hematocrit 32.4 % (40-54); Hemoglobin 10.4 g/dL (13.0-16.5); Lymphocyte # 0.65 X10^3/ul (0.83-4.51); Lymphocyte % 8.4 % (19-41); Mean Corp Hgb Conc 32.1 g/dL (32-36); Mean Corpuscular Hgb 29.7 pg (27.0-32.0); Mean Corpuscular Volume 92.6 fL (80-94); Mean Platelet Vol. 9.8 fl (6.2-12.0); Monocyte# 0.77 X10^3/uL; NRBC Flagged by Analyzer 0 % (0-5); Neutrophil # 6.19 X10^3/uL (2.7-7.7); Neutrophil % 80.1 % (47-70); Platelet Count 171 K/mm3 (150-450); RBC Distribution Width CV 15.9 % (11.6-14.6); RBC Distribution Width SD 53.1 fl (35.1-43.9); White Blood Count 7.7 K/mm3 (4.4-11.0)
[2023-01-15 06:24] LABS: Bedside Glucose 139 mg/dL (74-106)
[2023-01-15 06:53] LABS: Anion Gap 5 (5-15); BUN 32 mg/dL (7-18); BUN/Creat Ratio 29.4 RATIO (10-20); Calcium,Total 8.2 mg/dL (8.5-10.1); Chloride 114 mmol/L (98-107); Creatinine, Serum 1.09 mg/dL (0.70-1.30); EST Glomerular Filtration Rate 69 mL/min (>60); Est Glom Filt Rate - Afr Amer 83 mL/min (>60); Estimated Creatinine Clearance 47.15 ml/min; Glucose 152 mg/dL (74-106); Potassium 4.4 mmol/L (3.5-5.1); Sodium Level 141 mmol/L (136-145)
--- NOTE | 2023-01-15 08:50 | PCM.PN.HOSP ---
Reason for Visit Reason for Visit: Diagnoses Acute posthemorrhagic anemia (01/11/23) Encephalopathy, unspecified (01/11/23) Pneumonia, unspecified organism (01/11/23) Weakness (01/11/23) COVID-19 (01/11/23) Subjective Subjective Hypotension yesterday. Objective Data Objective Data Vital Signs: Vital Signs Temp Pulse Resp BP Pulse Ox O2 Del Method 36.7 C 73 18 114/49 L 97 Room Air 01/15/23 08:25 01/15/23 08:25 01/15/23 08:25 01/15/23 08:25 01/15/23 08:25 01/15/23 08:45 Oxygen Delivery Method Room Air Weight: 74.6 kg Body Mass Index (BMI) 26.5 Intake & Output: Intake and Output for Last 24 Hours 01/13/23 01/14/23 01/15/23 23:59 23:59 23:59 Intake Total 1045 / 1045 1825 / 1825 Output Total 850 / 850 1750 / 1750 700 / 700 Balance 195 / 195 75 / 75 -700 / -700 Medical Nutrition Assessment Dietitian: Malnutrition Criteria Met Start: 01/12/23 15:34 Freq: Status: Active Protocol: Document 01/12/23 15:34 RMA (Rec: 01/12/23 15:34 RMA [id number]) Nutrition Malnutrition Evidence of Malnutrition Exists Yes Malnutrition (severe): Chronic Evidenced By Suboptimal Energy Intake ( Severe),Weight Loss (Severe) Clinical Problem Chronic Disease or Condition Related Malnutrition Etiology Severe protein-calorie malnutrition in the context of chronic disease and debility related to inadequate oral/ energy intake Signs/Symptoms as evidenced by ~18% weight loss x past 5-6 months and suspected PO meeting less than 50% estimated nutrition needs Status Active Problem Recommendation Dietitian Recommendations/Changes Continue liberalized regular diet. Will add magic cup w/ lunch and dinner. Will add 120mL ensure plus high protein TID w/ meals. Lab / Micro Data 01/15/23 05:46 01/15/23 05:46 Labs: Laboratory Results - last 24 hr 01/11/23 20:47: Diff Path Review Reviewed 01/12/23 07:32: Diff Path Review Reviewed 01/14/23 11:42: POC Glucose 269 H 01/14/23 23:45: POC Glucose 165 H 01/15/23 05:46: WBC 7.7, RBC 3.50 L, Hgb 10.4 L, Hct 32.4 L, MCV 92.6, MCH 29.7, MCHC 32.1, RDW Std Deviation 53.1 H, RDW Coeff of Taniya 15.9 H, Plt Count 171, MPV 9.8, Immature Gran % (Auto) 1.400 H, Neut % (Auto) 80.1 H, Lymph % (Auto) 8.4 L, [place] % (Auto) 10.0, Eos % (Auto) 0.0, Baso % (Auto) 0.1, Absolute Neuts (auto) 6.2, Absolute Lymphs (auto) 0.65 L, Nucleated RBC % 0, Sodium 141, Potassium 4.4, Chloride 114 H, Carbon Dioxide 22.0, Anion Gap 5, BUN 32 H, Creatinine 1.09, Estim Creat Clear Calc 47.15, Est GFR (MDRD) Af Amer 83, Est GFR (MDRD) Non-Af 69, BUN/Creatinine Ratio 29.4 H, Glucose 152 H, Calcium 8.2 L 01/15/23 06:01: POC Glucose 139 H Micro: Microbiology 01/11/23 18:19 Blood Culture (Wb) - Anticubital Right Blood Culture - Preliminary No growth in 48 hours. 01/11/23 18:19 Blood Culture (Wb) - Anticubital Left Blood Culture - Preliminary No growth in 48 hours. 01/11/23 20:20 Mucosa - Nose Respiratory Panel (PCR) - Final 01/11/23 22:35 Urine, Clean Catch Legionella Antigen - Final 01/11/23 22:35 Urine, Clean Catch Streptococcus pneumoniae Antigen (M - Final 01/11/23 20:20 Nasal Secretion SARS-CoV-2 Antigen (Rapid) - Final SARS-CoV-2 (COVID 19) Radiography Diagnostic Testing: Radiology Impression Brain CT 01/14/23 12:20 IMPRESSION: Chronic involutional changes of the brain. Sinusitis. Electronically Signed: Vaibhav Magaña MD at 13:04 EDT , ADDENDUM: 01/14/23 1319 IMPRESSION: Chronic involutional changes of the brain. Sinusitis. N.B. : The above Results were Read Back by Vaibhav Magaña MD to Vidya Grewal RN, and understanding confirmed on 01/14/2023 13:12:06 (ET). Electronically Signed: Vaibhav Magaña MD at 13:04 EDT , Rhythm Strip Rhythm Strip: Sinus Rhythm Rate: 82 Ectopy: None Physical Exam Const alert and no apparent distress HEENT head/scalp atraumatic and moist oral mucous membranes Resp normal respiratory effort, no retractions, no use of accessory muscles and clear to auscultation bilaterally Cardio regular rate, regular rhythm, S1 normal heart sound and S2 normal heart sound GI normal to inspection, nondistended, normoactive bowel sounds, soft to palpation, non-tender and non-distended Assessment & Plan Assessment/Plan (1) Pneumonia: QUALIFIERS: Laterality: unspecified laterality Lung location: unspecified part of lung Pneumonia type: due to unspecified organism Qualified Code(s): J18.9 - Pneumonia, unspecified organism PLAN: RLL pneumonia Strep and legionella negative CTX and azithromycin PEP (2) COVID-19: PLAN: On dexamethasone. Will dc given encephalopathy. Positive on 01/11. Unclear on time of onset. Quaratine through 01/21. 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 Treated with a heater probe. Multiple non-bleeding duodenal ulcers with no stigmata of bleeding. on pantoprazole (4) Encephalopathy acute: PLAN: CT showed no acute process. Suspect pt has dementia, but unknown baseline Will dc steroids as he appears to be stable from a COVID 19 standpoint and may be contributing to confusion. PRN haloperidol PLAN: Plan Chronic conditions: dementia-complicates care, medical course, recovery, and prognosis hypothyroidism-patient is on Synthroid type 2 diabetes-patient is on sliding scale insulin with fingerstick blood sugars VTE prophylaxis: SCDs Disposition: to SNF when he is without a sitter for 24+ hours. Charges/Coding Visit Charges Inpatient E&M: 01321 Subs Hosp L2
[2023-01-15] MEDS: Menthol/Lanolin/Calamine/Znox 113 GM Tube 1 APPLIC TOPICAL ×4 (08:51→21:06)
[2023-01-15] MEDS: Ceftriaxone 1 GM/50 ML BAG IV (08:52)
[2023-01-15] MEDS: Pantoprazole Sodium 40 MG in 0.9% Normal Saline (100mL MB+) 100 ML 330 MG IV ×2 (10:40→21:05)
[2023-01-15] MEDS: Azithromycin 500 MG in Dextrose 5%-Water (250mL Bag) 250 ML 250 MG IV (11:19)
[2023-01-15] MEDS: Acetaminophen 325 MG Tablet 650 MG PO (11:19)
[2023-01-15] MEDS: Insulin Lispro 100 UNIT/ML INSULN.PEN SC ×3 (11:31→21:08)
[2023-01-15 11:53] LABS: Bedside Glucose 187 mg/dL (74-106)
--- NOTE | 2023-01-15 14:20 | CASEMGMT ---
Discharge Planning Referral sent to [facility] and [facility] via [facility]. Desirae Keys, Discharge Planning Asst.
[2023-01-15 16:38] LABS: Bedside Glucose 223 mg/dL (74-106)
--- NOTE | 2023-01-15 17:25 | EX.PCM.PN.GI ---
Subjective Subjective Patient is hemoglobin seems to be stabilizing as it is increased today. He has not seen any signs or symptoms of GI bleeding. Objective Data Objective Data Vital Signs: Vital Signs Temp Pulse Resp BP Pulse Ox O2 Del Method 98.2 F 73 18 114/49 L 97 Room Air 01/15/23 14:26 01/15/23 14:26 01/15/23 14:26 01/15/23 14:26 01/15/23 14:26 01/15/23 14:26 Oxygen Delivery Method Room Air Weight: 164 lb 7.437 oz Body Mass Index (BMI) 26.5 Intake & Output: Intake and Output for Last 24 Hours 01/13/23 01/14/23 01/15/23 23:59 23:59 23:59 Intake Total 1045 / 1045 1825 / 1825 655 / 655 Output Total 850 / 850 1750 / 1750 1000 / 1000 Balance 195 / 195 75 / 75 -345 / -345 Medical Nutrition Assessment Dietitian: Malnutrition Criteria Met Start: 01/12/23 15:34 Freq: Status: Active Protocol: Document 01/12/23 15:34 RMA (Rec: 01/12/23 15:34 RMA [id number]) Nutrition Malnutrition Evidence of Malnutrition Exists Yes Malnutrition (severe): Chronic Evidenced By Suboptimal Energy Intake ( Severe),Weight Loss (Severe) Clinical Problem Chronic Disease or Condition Related Malnutrition Etiology Severe protein-calorie malnutrition in the context of chronic disease and debility related to inadequate oral/ energy intake Signs/Symptoms as evidenced by ~18% weight loss x past 5-6 months and suspected PO meeting less than 50% estimated nutrition needs Status Active Problem Recommendation Dietitian Recommendations/Changes Continue liberalized regular diet. Will add magic cup w/ lunch and dinner. Will add 120mL ensure plus high protein TID w/ meals. Lab / Micro Data 01/15/23 05:46 01/15/23 05:46 Labs: Laboratory Results - last 24 hr 01/14/23 23:45: POC Glucose 165 H 01/15/23 05:46: WBC 7.7, RBC 3.50 L, Hgb 10.4 L, Hct 32.4 L, MCV 92.6, MCH 29.7, MCHC 32.1, RDW Std Deviation 53.1 H, RDW Coeff of Taniya 15.9 H, Plt Count 171, MPV 9.8, Immature Gran % (Auto) 1.400 H, Neut % (Auto) 80.1 H, Lymph % (Auto) 8.4 L, Armstrong % (Auto) 10.0, Eos % (Auto) 0.0, Baso % (Auto) 0.1, Absolute Neuts (auto) 6.2, Absolute Lymphs (auto) 0.65 L, Nucleated RBC % 0, Sodium 141, Potassium 4.4, Chloride 114 H, Carbon Dioxide 22.0, Anion Gap 5, BUN 32 H, Creatinine 1.09, Estim Creat Clear Calc 47.15, Est GFR (MDRD) Af Amer 83, Est GFR (MDRD) Non-Af 69, BUN/Creatinine Ratio 29.4 H, Glucose 152 H, Calcium 8.2 L 01/15/23 06:01: POC Glucose 139 H 01/15/23 11:29: POC Glucose 187 H 01/15/23 16:08: POC Glucose 223 H Micro: Microbiology 01/11/23 18:19 Blood Culture (Wb) - Anticubital Right Blood Culture - Preliminary No growth in 48 hours. 01/11/23 18:19 Blood Culture (Wb) - Anticubital Left Blood Culture - Preliminary No growth in 48 hours. 01/11/23 20:20 Mucosa - Nose Respiratory Panel (PCR) - Final 01/11/23 22:35 Urine, Clean Catch Legionella Antigen - Final 01/11/23 22:35 Urine, Clean Catch Streptococcus pneumoniae Antigen (M - Final 01/11/23 20:20 Nasal Secretion SARS-CoV-2 Antigen (Rapid) - Final SARS-CoV-2 (COVID 19) Rhythm Strip Rhythm Strip: Sinus Rhythm Rate: 82 Ectopy: None Physical Exam Const alert and no apparent distress HEENT head/scalp atraumatic and moist oral mucous membranes Resp normal respiratory effort, no retractions, no use of accessory muscles and clear to auscultation bilaterally Cardio regular rate, regular rhythm, S1 normal heart sound and S2 normal heart sound GI normal to inspection, nondistended, normoactive bowel sounds, soft to palpation, non-tender and non-distended Assessment & Plan Assessment/Plan (1) Acute blood loss anemia: PLAN: Findings: A hiatal hernia was present. 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 Coagulation for hemostasis using heater probe was successful. Estimated blood loss was minimal. Many non-bleeding linear duodenal ulcers with no stigmata of bleeding were found in the duodenal bulb, in the first portion of the duodenum, in the second portion of the duodenum and in the third portion of the duodenum. The largest lesion was 4 mm in largest dimension. Hemoglobin is improved. He is doing well from a gi standpoint. No nsaids Continue to monitor blood count. Due to the fact that he does have angiodysplastic lesions were in the stomach he likely had some in the small bowel 2. He will need an outpatient capsule endoscopy. Charges/Coding Visit Charges Inpatient E&M: 63093 Init Hosp L3
--- NOTE | 2023-01-15 18:02 | NURSING ---
Sitter removed at 1550.
[2023-01-15] MEDS: Atorvastatin Calcium 40 MG Tablet PO (21:05)
[2023-01-15] MEDS: Glycerin/Hypromellose/PEG400 15 ml Bottle 1 DRP EACH EYE (21:06)
[2023-01-15 21:34] LABS: Bedside Glucose 220 mg/dL (74-106)
[2023-01-16 02:52] VITALS: BMI 26.0
[2023-01-16 04:19] VITALS: BP 132/60; PULSE 104; RESP 20; TEMP 36.1; O2SAT 98
[2023-01-16] MEDS: Levothyroxine 75 MCG Tablet PO (05:34)
[2023-01-16 08:03] LABS: Absolute Lymphocyte Count 0.41 X10^3/uL (0.83-4.51); Absolute Neutrophil Count 4.2 X10^3/uL (2.0-7.7); Basophil# 0.02 X10^3/uL; Basophil% 0.4 % (0-1); Eosinophil# 0.02 X10^3/uL; Eosinophils% 0.4 % (0-5); Hematocrit 31.7 % (40-54); Hemoglobin 10.5 g/dL (13.0-16.5); Lymphocyte # 0.41 X10^3/ul (0.83-4.51); Lymphocyte % 7.6 % (19-41); Mean Corp Hgb Conc 33.1 g/dL (32-36); Mean Corpuscular Hgb 31.7 pg (27.0-32.0); Mean Corpuscular Volume 95.8 fL (80-94); Mean Platelet Vol. 10.4 fl (6.2-12.0); Monocyte# 0.66 X10^3/uL; Monocyte% 12.3 % (0-10); NRBC Flagged by Analyzer 0 % (0-5); Neutrophil # 4.17 X10^3/uL (2.7-7.7); Neutrophil % 77.4 % (47-70); POSITIVE DIFFERENTIAL YES; Platelet Count 150 K/mm3 (150-450); RBC Distribution Width CV 15.9 % (11.6-14.6); RBC Distribution Width SD 54.2 fl (35.1-43.9); Red Blood Count 3.31 M/mm3 (4.6-6.2); White Blood Count 5.4 K/mm3 (4.4-11.0)
[2023-01-16 08:28] LABS: Differential Indicated SCAN CRITERIA MET
[2023-01-16 08:29] LABS: Anion Gap 2 (5-15); BUN 33 mg/dL (7-18); BUN/Creat Ratio 30.6 RATIO (10-20); Calcium,Total 8.2 mg/dL (8.5-10.1); Chloride 115 mmol/L (98-107); Creatinine, Serum 1.08 mg/dL (0.70-1.30); EST Glomerular Filtration Rate 70 mL/min (>60); Est Glom Filt Rate - Afr Amer 84 mL/min (>60); Estimated Creatinine Clearance 47.59 ml/min; Glucose 117 mg/dL (74-106); Potassium 4.7 mmol/L (3.5-5.1); Sodium Level 142 mmol/L (136-145)
[2023-01-16] MEDS: Pantoprazole Sodium 40 MG in 0.9% Normal Saline (100mL MB+) 100 ML 330 MG IV (09:42)
[2023-01-16 09:47] VITALS: BP 116/65; PULSE 89; RESP 20; TEMP 36.6; O2SAT 93
[2023-01-16 09:47] LABS: Differential Comment SCANNED
--- NOTE | 2023-01-16 09:51 | CASEMGMT ---
Patient has been sitter free since yesterday and no Halodol since the . SW notified [facility]. SW will work on obtaining level of care today in hopes that patient can be discharged today if medically ready. Gina GARDNER
[2023-01-16] MEDS: Menthol/Lanolin/Calamine/Znox 113 GM Tube 1 APPLIC TOPICAL ×2 (09:54→14:02)
[2023-01-16] MEDS: Ceftriaxone 1 GM/50 ML BAG IV (10:12)
[2023-01-16] MEDS: Acetaminophen 325 MG Tablet 650 MG PO (10:12)
--- NOTE | 2023-01-16 10:59 | PN.HOSP_ITS ---
Reason for Visit Reason for Visit: Diagnoses Acute posthemorrhagic anemia (01/11/23) Encephalopathy, unspecified (01/11/23) Pneumonia, unspecified organism (01/11/23) Weakness (01/11/23) COVID-19 (01/11/23) Subjective Subjective No new issues. Objective Data Objective Data Vital Signs: Vital Signs Temp Pulse Resp BP Pulse Ox O2 Del Method 36.6 C 89 20 H 116/65 93 Room Air 01/16/23 09:47 01/16/23 09:47 01/16/23 09:47 01/16/23 09:47 01/16/23 09:47 01/16/23 09:56 Oxygen Delivery Method Room Air Weight: 73.3 kg Body Mass Index (BMI) 26.0 Intake & Output: Intake and Output for Last 24 Hours 01/14/23 01/15/23 01/16/23 23:59 23:59 23:59 Intake Total 1825 / 1825 655 / 855 540 / 540 Output Total 1750 / 1750 1000 / 1400 700 / 700 Balance 75 / 75 -345 / -545 -160 / -160 Medical Nutrition Assessment Dietitian: Malnutrition Criteria Met Start: 01/12/23 15:34 Freq: Status: Active Protocol: Document 01/12/23 15:34 RMA (Rec: 01/12/23 15:34 RMA [id number]) Nutrition Malnutrition Evidence of Malnutrition Exists Yes Malnutrition (severe): Chronic Evidenced By Suboptimal Energy Intake ( Severe),Weight Loss (Severe) Clinical Problem Chronic Disease or Condition Related Malnutrition Etiology Severe protein-calorie malnutrition in the context of chronic disease and debility related to inadequate oral/ energy intake Signs/Symptoms as evidenced by ~18% weight loss x past 5-6 months and suspected PO meeting less than 50% estimated nutrition needs Status Active Problem Recommendation Dietitian Recommendations/Changes Continue liberalized regular diet. Will add magic cup w/ lunch and dinner. Will add 120mL ensure plus high protein TID w/ meals. Lab / Micro Data 01/16/23 06:23 01/16/23 06:23 Labs: Laboratory Results - last 24 hr 01/15/23 11:29: POC Glucose 187 H 01/15/23 16:08: POC Glucose 223 H 01/15/23 21:08: POC Glucose 220 H 01/16/23 06:23: WBC 5.4, RBC 3.31 L, Hgb 10.5 L, Hct 31.7 L, MCV 95.8 H, MCH 31.7, MCHC 33.1, RDW Std Deviation 54.2 H, RDW Coeff of Taniya 15.9 H, Plt Count 150, MPV 10.4, Immature Gran % (Auto) 1.900 H, Neut % (Auto) 77.4 H, Lymph % (Auto) 7.6 L, [place] % (Auto) 12.3 H, Eos % (Auto) 0.4, Baso % (Auto) 0.4, Absolute Neuts (auto) 4.2, Absolute Lymphs (auto) 0.41 L, Nucleated RBC % 0, Differential Comment SCANNED, Sodium 142, Potassium 4.7, Chloride 115 H, Carbon Dioxide 25.0, Anion Gap 2 L, BUN 33 H, Creatinine 1.08, Estim Creat Clear Calc 47.59, Est GFR (MDRD) Af Amer 84, Est GFR (MDRD) Non-Af 70, BUN/Creatinine Ratio 30.6 H, Glucose 117 H, Calcium 8.2 L Micro: Microbiology 01/11/23 18:19 Blood Culture (Wb) - Anticubital Right Blood Culture - Preliminary No growth in 48 hours. 01/11/23 18:19 Blood Culture (Wb) - Anticubital Left Blood Culture - Preliminary No growth in 48 hours. 01/11/23 20:20 Mucosa - Nose Respiratory Panel (PCR) - Final 01/11/23 22:35 Urine, Clean Catch Legionella Antigen - Final 01/11/23 22:35 Urine, Clean Catch Streptococcus pneumoniae Antigen (M - Final 01/11/23 20:20 Nasal Secretion SARS-CoV-2 Antigen (Rapid) - Final SARS-CoV-2 (COVID 19) Rhythm Strip Rhythm Strip: Sinus Rhythm Rate: 82 Ectopy: None Physical Exam Const alert and no apparent distress HEENT head/scalp atraumatic and moist oral mucous membranes Resp normal respiratory effort, no retractions, no use of accessory muscles and clear to auscultation bilaterally Cardio regular rate, regular rhythm and S1 normal heart sound GI normal to inspection, nondistended, normoactive bowel sounds and soft to palpation Assessment & Plan Assessment/Plan (1) Pneumonia: QUALIFIERS: Laterality: unspecified laterality Lung location: unspecified part of lung Pneumonia type: due to unspecified organism Qualified Code(s): J18.9 - Pneumonia, unspecified organism PLAN: RLL pneumonia Strep and legionella negative CTX and azithromycin PEP (2) COVID-19: PLAN: On dexamethasone. Will dc given encephalopathy. Positive on 01/11. Unclear on time of onset. Quaratine through 01/21. 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 Treated with a heater probe. Multiple non-bleeding duodenal ulcers with no stigmata of bleeding. on pantoprazole (4) Encephalopathy acute: PLAN: CT showed no acute process. Suspect pt has dementia, but unknown baseline Will dc steroids as he appears to be stable from a COVID 19 standpoint and may be contributing to confusion. PRN haloperidol PLAN: Plan Chronic conditions: * dementia-complicates care, medical course, recovery, and prognosis * hypothyroidism-patient is on Synthroid * type 2 diabetes-patient is on sliding scale insulin with fingerstick blood sugars VTE prophylaxis: SCDs Disposition: to SNF when he is without a sitter for 24+ hours. Charges/Coding Visit Charges Inpatient E&M: 16354 Subs Hosp L2
[2023-01-16] MEDS: Azithromycin 500 MG in Dextrose 5%-Water (250mL Bag) 250 ML 250 MG IV (11:36)
[2023-01-16] MEDS: Insulin Lispro 100 UNIT/ML INSULN.PEN SC (11:37)
[2023-01-16 11:41] LABS: Bedside Glucose 108 mg/dL (74-106)
[2023-01-16 12:07] LABS: Bedside Glucose 152 mg/dL (74-106)
--- NOTE | 2023-01-16 12:29 | TREXTCAR_ITS ---
Diet Diet Order/Speech Therapy: 01/12/23 12:06 Diet: Regular - General Type of Dietary Supplement:: Magic Cup w/ L and D Is pt able to select menu?: No Diet Comments: 120mL ensure plus high protein TID w/ meals Routine Orders/Code Status Routine Lab Work: CBC (weekly) and BMP (weekly) Code Status: Full Code Wound(s) coccyx: Wound Type: Pressure Injury right elbow: Wound Type: Abrasion Problem/Diagnosis (1) Pneumonia: Status: Acute Code(s): J18.9 - Pneumonia, unspecified organism Plan: RLL pneumonia Strep and legionella negative CTX and azithromycin PEP (2) COVID-19: Status: Acute Code(s): U07.1 - COVID-19 Plan: On dexamethasone. Will dc given encephalopathy. Positive on 01/11. Unclear on time of onset. Quaratine through 01/21. (3) Acute blood loss anemia: Status: Acute Code(s): D62 - Acute posthemorrhagic anemia Plan: s/p transfusion 2 units EGD on 01/12 showed single bleeding angiodysplastic lesion in the stomach. Treated with a heater probe. Multiple non-bleeding duodenal ulcers with no stigmata of bleeding. on pantoprazole (4) Encephalopathy acute: Status: Acute Code(s): G93.40 - Encephalopathy, unspecified Plan: CT showed no acute process. Suspect pt has dementia, but unknown baseline Will dc steroids as he appears to be stable from a COVID 19 standpoint and may be contributing to confusion. PRN haloperidol Plan Chronic conditions: * dementia-complicates care, medical course, recovery, and prognosis * hypothyroidism-patient is on Synthroid * type 2 diabetes-patient is on sliding scale insulin with fingerstick blood sugars VTE prophylaxis: SCDs Disposition: to SNF when he is without a sitter for 24+ hours. Allergies/Procedures Done in Hospital Allergies Penicillins Allergy (Unknown, Verified 01/14/23 18:13) NEEDS FOLLOW-UP Type of Care/Length of Stay Estimated LOS: Convalescent Care Less Than 30 days Type of Care Needed: Intermediate Rehab Potential: Fair Prognosis: Fair Additional Orders/Day of Discharge Day of Discharge: 01/16/23 Dietary and Speech Recommendations Dietitian Recommendations/Changes: Continue liberalized regular diet. Will add magic cup w/ lunch and dinner. Will add 120mL ensure plus high protein TID w/ meals. Discharge Plan Admission Admit Date/Time: 01/11/23 19:23 Primary Reason for Your Visit: pneumonia. COVID 19 Attending Provider: Doug Mora Primary Care Provider: Harshil Franklin Consulting Providers: Enriqueta Barker; Boy Nicholas Instructions Additional Instructions / Restrictions: Quarantine through 01/21 for COVID 19. Levofloxacin through 01/19, then discontinue. Discharge Orders/Prescriptions Prescriptions: New acetaminophen 325 mg Tablet 650 mg PO Q4H PRN PRN (Reason: Fever, pain 1-12/31) Qty: 0 0RF levofloxacin 500 mg tablet 500 mg PO DAILY Qty: 3 0RF pantoprazole [Protonix] 40 mg tablet,delayed release (DR/EC) 40 mg PO DAILY Qty: 30 0RF Continued metformin 1,000 mg tablet 1,000 mg PO BIDWMEAL Patient Comments: 1 TABLET BY MOUTH TWICE ATDAY WITH MEALS DX:DMIIM atorvastatin 40 mg tablet 40 mg PO QHS Patient Comments: 1 TABLET BY MOUTH DAILY DX: carboxymethylcellulose sodium [Refresh Liquigel] 1 % drops, liquid gel 1 drp ophthalmic (eye) QHS levothyroxine 50 mcg capsule 75 mcg PO DAILY aspirin 81 mg tablet,chewable 81 mg PO DAILY@0800 Qty: 90 3RF Patient Comments: heart health Discontinued lisinopril 5 mg tablet 5 mg PO DAILY Paxlovid 300 mg (150 mg x 2)-100 mg tablets,dose pack 3 tab PO .5 days Patient Comments: take three tabsbid x 5 days Rx Instructions: take TWO 150 mg tablets of nirmatrelvir with ONE 100 mg tablet of ritonavir twice daily for 5 days amoxicillin-pot clavulanate [amoxicillin-pot clavulanate] 875-125 mg tablet 875 mg PO Q12H Qty: 20 0RF Referrals / Follow Up: Harshil Franklin MD [Primary Care Provider] - Within 2 Weeks Disposition Disposition (needs filled in before D/C Order can be placed): [facility] (1) Pneumonia Qualifiers: Pneumonia type: due to unspecified organism Laterality: unspecified laterality Lung location: unspecified part of lung Qualified Code(s): J18.9 - Pneumonia, unspecified organism
--- NOTE | 2023-01-16 13:08 | CASEMGMT ---
[facility] can take patient today when SW gets patient's level of care. SW notified physician. SW faxed all necessary information to [facility] to obtain a level of care. SW will also contact patient's sister to notify her of accepting facility and plan to go today. Gina GARDNER
--- NOTE | 2023-01-16 13:30 | CASEMGMT ---
CATARINA called patient's sister Amy and let her know [facility] has accepted patient and the physician will likely send him today. CATARINA also let Amy know that [facility] is going to put patient in their memory care unit. Amy was in agreement with plan. Gina GARDNER
[2023-01-16 14:04] VITALS: BP 137/71; PULSE 99; RESP 18; TEMP 36.6; O2SAT 94
--- NOTE | 2023-01-16 14:33 | DS.PCM_ITS ---
Providers Date of Admission: 01/11/23 Date of Discharge: 01/16/23 Primary Care Physician: Dr. Harshil Franklin MD Consultations 01/12/23 07:31 Consult: Gastroenterology Routine Consulting Provider: [facility] Reason for Consult: anemia EMERGENT Consult: No MD Notified: Yes Date Notified: 01/12/23 Time Notified: 07:31 Method of Notification: Text Reason For Visit: ENCEPHALOPATHY, PNA, ACUTE ON CHRONIC ANEMIA, MARIELOS Diagnosis Discharge Diagnosis (1) Pneumonia: Status: Acute Code(s): J18.9 - Pneumonia, unspecified organism Qualifiers: Pneumonia type: due to unspecified organism Laterality: unspecified laterality Lung location: unspecified part of lung Qualified Code(s): J18.9 - Pneumonia, unspecified organism Plan: RLL pneumonia Strep and legionella negative CTX and azithromycin PEP (2) COVID-19: Status: Acute Code(s): U07.1 - COVID-19 Plan: On dexamethasone. Will dc given encephalopathy. Positive on 01/11. Unclear on time of onset. Quaratine through 01/21. (3) Acute blood loss anemia: Status: Acute Code(s): D62 - Acute posthemorrhagic anemia Plan: s/p transfusion 2 units EGD on 01/12 showed single bleeding angiodysplastic lesion in the stomach. Treated with a heater probe. Multiple non-bleeding duodenal ulcers with no stigmata of bleeding. on pantoprazole (4) Encephalopathy acute: Status: Acute Code(s): G93.40 - Encephalopathy, unspecified Plan: CT showed no acute process. Suspect pt has dementia, but unknown baseline Will dc steroids as he appears to be stable from a COVID 19 standpoint and may be contributing to confusion. PRN haloperidol Plan Chronic conditions: * dementia-complicates care, medical course, recovery, and prognosis * hypothyroidism-patient is on Synthroid * type 2 diabetes-patient is on sliding scale insulin with fingerstick blood sugars VTE prophylaxis: SCDs Disposition: to SNF when he is without a sitter for 24+ hours. Medications at Discharge Home Medications aspirin 81 mg chewable tablet 81 mg PO DAILY@0800 ##90 11/21/17 atorvastatin 40 mg tablet 40 mg PO QHS cholesterol 06/04/21 carboxymethylcellulose sodium 1 % eye liquid gel drops (Refresh Liquigel) 1 drp ophthalmic (eye) QHS dry eyes 06/04/21 metformin 1,000 mg tablet 1,000 mg PO BIDWMEAL diabetes 06/04/21 levothyroxine 50 mcg capsule 75 mcg PO DAILY hypothyroidism 08/20/22 acetaminophen 325 mg tablet 650 mg (2 x 325 mg) PO Q4H PRN PRN Fever, pain 1-12/31 #0 tabs 01/16/23 levofloxacin 500 mg tablet 500 mg PO DAILY #3 tabs 01/16/23 pantoprazole 40 mg tablet,delayed release (Protonix) 40 mg PO DAILY #30 tabs 01/16/23 Hospital Course Operations None Procedures EGD Summary of Care Provided Minutes Spent on Discharge: 28 Hospital Course: Presents with falls, debility and confusion. Patient was unable to care for himself. Presents emergency room with diagnosed with pneumonia as well as COVID-19. Additionally, patient was noted to have anemia and did receive 2 units of packed red blood cells. Patient underwent an EGD that showed single bleeding angiodysplastic lesion in the stomach. Patient's course was complicated by confusion. Patient did require sitter for period of time but then patient did overall improve. Patient 1 of being on room air. Patient completed his antibiotics upon discharge. Patient will continue with quarantine through the for COVID-19. Patient had been on dexamethasone but with his confusion that was discontinued. Is unclear if the steroids were contributing to that or not. Medical Records Data Medical Nutrition Assessment Dietitian: Malnutrition Criteria Met Start: 01/12/23 15:34 Freq: Status: Active Protocol: Document 01/12/23 15:34 RMA (Rec: 01/12/23 15:34 RMA [id number]) Nutrition Malnutrition Evidence of Malnutrition Exists Yes Malnutrition (severe): Chronic Evidenced By Suboptimal Energy Intake ( Severe),Weight Loss (Severe) Clinical Problem Chronic Disease or Condition Related Malnutrition Etiology Severe protein-calorie malnutrition in the context of chronic disease and debility related to inadequate oral/ energy intake Signs/Symptoms as evidenced by ~18% weight loss x past 5-6 months and suspected PO meeting less than 50% estimated nutrition needs Status Active Problem Recommendation Dietitian Recommendations/Changes Continue liberalized regular diet. Will add magic cup w/ lunch and dinner. Will add 120mL ensure plus high protein TID w/ meals. Weight / BMI Weight Weight: 73.3 kg Body Mass Index (BMI) 26.0 ABG / Lab / Microbiology Data 01/16/23 06:23 01/16/23 06:23 Laboratory: Laboratory Results - last 24 hr 01/15/23 16:08: POC Glucose 223 H 01/15/23 21:08: POC Glucose 220 H 01/16/23 06:17: POC Glucose 108 H 01/16/23 06:23: WBC 5.4, RBC 3.31 L, Hgb 10.5 L, Hct 31.7 L, MCV 95.8 H, MCH 31.7, MCHC 33.1, RDW Std Deviation 54.2 H, RDW Coeff of Taniya 15.9 H, Plt Count 150, MPV 10.4, Immature Gran % (Auto) 1.900 H, Neut % (Auto) 77.4 H, Lymph % (Auto) 7.6 L, [place] % (Auto) 12.3 H, Eos % (Auto) 0.4, Baso % (Auto) 0.4, Absolute Neuts (auto) 4.2, Absolute Lymphs (auto) 0.41 L, Nucleated RBC % 0, Differential Comment SCANNED, Sodium 142, Potassium 4.7, Chloride 115 H, Carbon Dioxide 25.0, Anion Gap 2 L, BUN 33 H, Creatinine 1.08, Estim Creat Clear Calc 47.59, Est GFR (MDRD) Af Amer 84, Est GFR (MDRD) Non-Af 70, BUN/Creatinine Ratio 30.6 H, Glucose 117 H, Calcium 8.2 L 01/16/23 11:35: POC Glucose 152 H Microbiology: Microbiology 01/14/23 20:20 Sputum, Expectorated/Coughed Gram Stain - Final 01/11/23 18:19 Blood Culture (Wb) - Anticubital Right Blood Culture - Pr eliminary No growth in 48 hours. 01/11/23 18:19 Blood Culture (Wb) - Anticubital Left Blood Culture - Preliminary No growth in 48 hours. 01/11/23 20:20 Mucosa - Nose Respiratory Panel (PCR) - Final 01/11/23 22:35 Urine, Clean Catch Legionella Antigen - Final 01/11/23 22:35 Urine, Clean Catch Streptococcus pneumoniae Antigen (M - Final 01/11/23 20:20 Nasal Secretion SARS-CoV-2 Antigen (Rapid) - Final SARS-CoV-2 (COVID 19) Meaningful Use Info Meaningful Use Diagnoses (Choose all that apply): None applicable Discharge Plan Admission Admit Date/Time: 01/11/23 19:23 Primary Reason for Your Visit: pneumonia. COVID 19 Attending Provider: Doug Mora Primary Care Provider: Harshil Franklin Consulting Providers: Enriqueta Barker; Boy Nicholas Instructions Additional Instructions / Restrictions: Quarantine through 01/21 for COVID 19. Levofloxacin through 01/19, then discontinue. Discharge Orders/Prescriptions Prescriptions: New acetaminophen 325 mg Tablet 650 mg PO Q4H PRN PRN (Reason: Fever, pain 1-12/31) Qty: 0 0RF levofloxacin 500 mg tablet 500 mg PO DAILY Qty: 3 0RF pantoprazole [Protonix] 40 mg tablet,delayed release (DR/EC) 40 mg PO DAILY Qty: 30 0RF Continued metformin 1,000 mg tablet 1,000 mg PO BIDWMEAL Patient Comments: 1 TABLET BY MOUTH TWICE ATDAY WITH MEALS DX:DMIIM atorvastatin 40 mg tablet 40 mg PO QHS Patient Comments: 1 TABLET BY MOUTH DAILY DX: carboxymethylcellulose sodium [Refresh Liquigel] 1 % drops, liquid gel 1 drp ophthalmic (eye) QHS levothyroxine 50 mcg capsule 75 mcg PO DAILY aspirin 81 mg tablet,chewable 81 mg PO DAILY@0800 Qty: 90 3RF Patient Comments: heart health Discontinued lisinopril 5 mg tablet 5 mg PO DAILY Paxlovid 300 mg (150 mg x 2)-100 mg tablets,dose pack 3 tab PO .5 days Patient Comments: take three tabsbid x 5 days Rx Instructions: take TWO 150 mg tablets of nirmatrelvir with ONE 100 mg tablet of ritonavir twice daily for 5 days amoxicillin-pot clavulanate [amoxicillin-pot clavulanate] 875-125 mg tablet 875 mg PO Q12H Qty: 20 0RF Referrals / Follow Up: Harshil Franklin MD [Primary Care Provider] - Within 2 Weeks Disposition Disposition (needs filled in before D/C Order can be placed): [facility] Facility Charges/Coding Visit Charges Inpatient E&M: 54292 Disch Hosp
--- NOTE | 2023-01-16 14:47 | CASEMGMT ---
SW received patient's level of care. SW notified physician and discharge order was put in computer. CATARINA completed a 7000 in [facility]. Plan: d/c to [facility] under intermediate level of care on a convalescent stay. Physicians will transport patient. Gina GARDNER
--- NOTE | 2023-01-16 14:56 | CASEMGMT ---
Discharge Planning Discharge orders, signed med list, covid results, and loc sent to [facility] via [facility]. [facility] will transport patient by cot at 4p. Nursing, SW, and patients sister updated. Desirae Keys, Discharge Planning Asst.
--- NOTE | 2023-01-16 16:04 | NURSING ---
report called to f Germaine ECHAVARRIA
== END 2023-01-16 17:42 | disposition skilled nursing facility (03) | DRG 253 ==
LOC: ED 19:19 → PCU 19:33
PROVIDERS: Anesthesiology; Internal Medicine; Internal Medicine Gastroenterology; Admitting Provider Family Medicine; Emergency Provider Emergency Medicine; PCP Family Medicine
PROC: 0DJ08ZZ Inspection of Upper Intestinal Tract, Via Natural or Artificial Opening Endoscopic (ICD-10-PCS; CPT 43235; principal; 2023-01-12 11:30)
DX: K31.811 Angiodysplasia of stomach and duodenum with bleeding (principal); G93.40 Encephalopathy, unspecified; U07.1 COVID-19; E43 Unspecified severe protein-calorie malnutrition; D62 Acute posthemorrhagic anemia; I49.5 Sick sinus syndrome; J18.9 Pneumonia, unspecified organism; S09.90XA Unspecified injury of head, initial encounter; E11.22 Type 2 diabetes mellitus with diabetic chronic kidney disease; F03.90 Unspecified dementia, unspecified severity, without behavioral disturbance, psychotic disturbance, mood disturbance, and anxiety; I48.0 Paroxysmal atrial fibrillation; D63.1 Anemia in chronic kidney disease; I12.9 Hypertensive chronic kidney disease with stage 1 through stage 4 chronic kidney disease, or unspecified chronic kidney disease; E03.9 Hypothyroidism, unspecified; N18.9 Chronic kidney disease, unspecified; I25.10 Atherosclerotic heart disease of native coronary artery without angina pectoris; K44.9 Diaphragmatic hernia without obstruction or gangrene; E78.5 Hyperlipidemia, unspecified; I25.2 Old myocardial infarction; I25.5 Ischemic cardiomyopathy; J01.00 Acute maxillary sinusitis, unspecified; W06.XXXA Fall from bed, initial encounter; K26.9 Duodenal ulcer, unspecified as acute or chronic, without hemorrhage or perforation; R62.7 Adult failure to thrive; R29.6 Repeated falls; Z95.0 Presence of cardiac pacemaker; Z95.5 Presence of coronary angioplasty implant and graft; Z68.26 Body mass index [BMI] 26.0-26.9, adult; Z79.82 Long term (current) use of aspirin; Z79.84 Long term (current) use of oral hypoglycemic drugs; Z79.899 Other long term (current) drug therapy; Z87.891 Personal history of nicotine dependence
CPT/HCPCS: 36415; 70450; 71045; 80048; 80053; 81001; 82728; 82962; 83036; 83540; 83550; 83735; 84145; 84439; 84443; 85014; 85018; 85025; 85610; 85730; 86850; 86900; 86901; 86920; 87040; 87070; 87077; 87184; 87186; 87205; 87449; 87633; 87811; 93005; 97110; 97162; 97166; 97535; 99283; 99285; J7030; J7040; P9016; A4216

== ENCOUNTER → 2023-01-17 06:36 | Outpatient (REF) | payer MEDICAID, SELFPAY ==
[2017-01-08 10:30] VITALS: BMI 30.2
[2023-01-17 07:41] LABS: Hematocrit 28.7 % (40-54); Hemoglobin 9.8 g/dL (13.0-16.5); Mean Corp Hgb Conc 34.1 g/dL (32-36); Mean Corpuscular Hgb 32.5 pg (27.0-32.0); Mean Platelet Vol. 10.9 fl (6.2-12.0); Platelet Count 127 K/mm3 (150-450); RBC Distribution Width CV 15.9 % (11.6-14.6); RBC Distribution Width SD 53.1 fl (35.1-43.9); Red Blood Count 3.02 M/mm3 (4.6-6.2); White Blood Count 7.7 K/mm3 (4.4-11.0)
[2023-01-17 07:50] LABS: Anion Gap 4 (5-15); BUN 29 mg/dL (7-18); BUN/Creat Ratio 27.6 RATIO (10-20); Calcium,Total 7.8 mg/dL (8.5-10.1); Chloride 115 mmol/L (98-107); Cholesterol 83 mg/dL (200); Creatinine, Serum 1.05 mg/dL (0.70-1.30); EST Glomerular Filtration Rate 72 mL/min (>60); Est Glom Filt Rate - Afr Amer 87 mL/min (>60); Glucose 167 mg/dL (74-106); High Density Lipoprotein 39 mg/dL; Potassium 4.5 mmol/L (3.5-5.1); Sodium Level 142 mmol/L (136-145); Thyroid Stim Hormone (TSH) 4.88 uIU/mL (0.358-3.74); Triglycerides 83 mg/dL; Very Low Density Lipoprotein 17 mg/dL (5-40)
[2023-01-17 09:23] LABS: Hemoglobin A1c 5.4 % (3.8-5.6)
[2023-01-17 09:55] LABS: Vitamin B12 532 pg/mL (211-911); Vitamin D,25 Hydroxy 8.5 ng/mL
== END ==
LOC: OLS.SW 06:36
PROVIDERS: PCP Family Medicine; Visit Provider Internal Medicine
DX: D64.9 Anemia, unspecified (principal); E11.9 Type 2 diabetes mellitus without complications; E78.5 Hyperlipidemia, unspecified; E03.9 Hypothyroidism, unspecified; U09.9 Post COVID-19 condition, unspecified; R79.9 Abnormal finding of blood chemistry, unspecified; Z02.2 Encounter for examination for admission to residential institution
CPT/HCPCS: 36415; 80048; 80061; 82306; 82607; 83036; 84443; 85027; 86140

== ENCOUNTER 2023-01-17 10:02 | Inpatient (IN) | payer MEDICAID, SELFPAY ==
[2017-01-08 10:30] VITALS: BMI 30.2
[2023-01-17] VITALS (8 sets, daily range): BP systolic 103–120; BP diastolic 58–88; PULSE 62–111; RESP 14–24; TEMP 35.5–36.8; O2SAT 93–98; BMI 28.3
--- NOTE | 2023-01-17 10:27 | CT_ITS ---
STUDY: CT BRAIN WITHOUT CONTRAST REASON FOR EXAM: Male, 82 years old. Confusion RADIATION DOSAGE (If Supplied By Facility): CTDIvol = ( 44.99 ) mGy, DLP = ( 745.49 ) mGycm TECHNIQUE: Transaxial CT imaging of the brain was performed without administration of intravenous contrast material. Individualized dose optimization techniques were used for this CT. COMPARISON: Comparison is made with prior study dated January 14, 2023. FINDINGS: Normal soft tissue structures. Normal calvarium. There is moderate cerebral atrophy with widening of the extra-axial spaces and ventricular dilatation. There are areas of decreased attenuation within the white matter tracts of the supratentorial brain, consistent with microvascular disease changes. Normal basal ganglia and thalami. Normal brainstem. Normal cerebellum. There is no intracranial hemorrhage. There are no findings of an acute ischemic infarction. Atherosclerotic vascular calcification of the vertebral arteries and cavernous portions of the internal carotid arteries bilaterally. Partial opacification of the ethmoidal sinuses as well as left frontal and sphenoid sinusitis. CT/Brain/Head without Contrast IMPRESSION: Chronic involutional changes of the brain. Sinusitis. Electronically Signed: Vaibhav Magaña MD at 12:10 EDT ,
--- NOTE | 2023-01-17 10:30 | EKG12_ITS ---
Test Reason : PRE0 OP Blood Pressure : / mmHG Vent. Rate : 079 BPM Atrial Rate : 079 BPM P-R Int : 244 ms QRS Dur : 092 ms QT Int : 390 ms P-R-T Axes : 030 -21 035 degrees QTc Int : 447 ms Sinus rhythm with 1st degree A-V block Low voltage QRS Borderline ECG Confirmed by LORAINE PANG, FRANCO ([id number]), mapping editor GLORIA SHETTY ([id number]) on 02/03/2023 11:12:26 AM Referred By: Enriqueta Barker Confirmed By:STEWART BARON MD
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
--- NOTE | 2023-01-17 11:10 | RAD_ITS ---
STUDY: X-RAY CHEST REASON FOR EXAM: Male, 82 years old. Cough and confusion. TECHNIQUE: Single AP portable view of the chest. COMPARISON: Comparison is made with prior study January 11, 2023. FINDINGS: EKG electrodes are seen. Persistent right lower lobe pneumonia. Increased markings at the left lung base. Left basilar atelectasis and/or infiltrate should be ruled out. Normal size heart. A left-sided dual-chamber pacemaker is seen. Normal mediastinum and edis. Normal visualized pulmonary arteries. There is atherosclerotic tortuosity of the aortic arch and descending thoracic aorta. There are diffuse degenerative changes of the visualized thoracic spine. Normal visualized ribs, clavicles, and shoulders. There is no demonstrated abnormality of the visualized soft tissue structures of the upper abdomen. RAD/Chest 1 View (Portable) IMPRESSION: Persistent right lower lobe pneumonia although this has improved as compared to prior study. Increased markings are also left lung base. Electronically Signed: Vaibhav Magaña MD at 11:22 EDT ,
[2023-01-17 11:15] LABS: Absolute Lymphocyte Count 0.57 X10^3/uL (0.83-4.51); Absolute Neutrophil Count 7.4 X10^3/uL (2.0-7.7); Basophil# 0.01 X10^3/uL; Basophil% 0.1 % (0-1); Eosinophil# 0.01 X10^3/uL; Eosinophils% 0.1 % (0-5); Hematocrit 29.5 % (40-54); Hemoglobin 10.9 g/dL (13.0-16.5); Lymphocyte # 0.57 X10^3/ul (0.83-4.51); Lymphocyte % 6.4 % (19-41); Mean Corp Hgb Conc 36.9 g/dL (32-36); Mean Corpuscular Hgb 35.7 pg (27.0-32.0); Mean Corpuscular Volume 96.7 fL (80-94); Mean Platelet Vol. 10.3 fl (6.2-12.0); Monocyte# 0.71 X10^3/uL; NRBC Flagged by Analyzer 0 % (0-5); Neutrophil # 7.44 X10^3/uL (2.7-7.7); Neutrophil % 84.2 % (47-70); POSITIVE DIFFERENTIAL YES; Platelet Count 122 K/mm3 (150-450); RBC Distribution Width CV 17.6 % (11.6-14.6); RBC Distribution Width SD 54.4 fl (35.1-43.9); Red Blood Count 3.05 M/mm3 (4.6-6.2); White Blood Count 8.9 K/mm3 (4.4-11.0)
[2023-01-17 11:19] LABS: Differential Indicated SCAN CRITERIA MET
[2023-01-17 11:22] LABS: International Normalized Ratio 1.2; Partial Thromboplast Time 28.6 Seconds (24.1-36.2); Prothrombin Time (Protime)PT. 14.8 SECONDS (11.7-14.9)
[2023-01-17 11:35] LABS: ALB/GLOB Ratio 0.7 RATIO (0.9-2.4); AST(SGOT) 41 U/L (15-37); Alanine Aminotransfer ALT/SGPT 35 U/L (16-61); Albumin, Serum 2.1 g/dL (3.2-5.0); Alkaline Phosphatase 164 U/L (45-117); Anion Gap 5 (5-15); BUN 29 mg/dL (7-18); BUN/Creat Ratio 26.9 RATIO (10-20); Calcium,Total 8.3 mg/dL (8.5-10.1); Chloride 114 mmol/L (98-107); Creatinine, Serum 1.08 mg/dL (0.70-1.30); EST Glomerular Filtration Rate 70 mL/min (>60); Est Glom Filt Rate - Afr Amer 84 mL/min (>60); Estimated Creatinine Clearance 47.59 ml/min; Globulin 2.9 g/dL (2.2-4.2); Glucose 131 mg/dL (74-106); Potassium 4.5 mmol/L (3.5-5.1); Sodium Level 142 mmol/L (136-145); Troponin-I HS 253 pg/mL (3.0-78.0)
[2023-01-17 12:00] LABS: Lactic Acid 2.1 mmol/L (0.4-1.9)
[2023-01-17] MEDS: 0.9% Normal Saline (1000mL) 1,000 ML 1000 ML IV (12:15)
[2023-01-17] MEDS: LORazepam 2 MG/ML Syringe 1 MG IV (12:58)
[2023-01-17 12:59] LABS: Bacteria 0 SEEN /hpf (None Seen); Mucous, Urine 0 SEEN /hpf (<or=2+); Red Blood Cells-Urine 0 SEEN /hpf (0-5); Squamous Epithelial Cells - UA 0 SEEN /hpf (0-5); White Blood Cells 0 SEEN /hpf (0-5)
[2023-01-17 13:28] LABS: Color, Urine Yellow (Yellow); Glucose, Dipstick Normal (Normal); Ketone-Dipstick 5 mg/dl (Negative); Leukocyte Esterase-Dipstick Negative /ul (Negative); Nitrite-Dipstick Negative (Negative); Occult Blood-Urine 25 /ul (Negative); Protein-Dipstick 15 mg/dl (Negative); Specific Gravity, Urine 1.015 (1.002-1.030); Urine Bilirubin Dipstick Negative (Negative); Urine Clarity Clear (Clear); Urine Urobilinogen Normal (Normal); Urine pH 6.5 (5.0 - 8.0)
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
[2023-01-17 15:06] LABS: Reflex Lactate? Y
--- NOTE | 2023-01-17 15:15 | ED.RN ---
spoke with pt family, regarding admission, plan of care. questions answered. verbalizes understanding. no further needs voiced. pt resting in bed. no distress noted.
--- NOTE | 2023-01-17 15:52 | ECHOD_ITS ---
Reason For Study: Elevated Troponins Procedure This was a 2D Doppler, Color Flow transthoracic echocardiogram. The exam was abbreviated due to the COVID 19 Protocol as well as the patient was combative. Exam performed portable in patient room. Left Ventricle Normal LV size. Moderate concentric left ventricular hypertrophy. The left ventricular ejection fraction is 55 %. Diastolic function is indeterminate. Right Ventricle Normal right ventricle. Atria The left and right atria are normal. ICD or pacer leads identified within the right atrium. Mitral Valve Moderate (2+) posteriorly directed mitral valve insufficiency. Tricuspid Valve Mild tricuspid valve insufficiency. Right ventricular systolic pressure estimated to be 51 mmHg. Aortic Valve Trisinus/trileaflet aortic valve. Mild-Moderate (1-2+) aortic valve insufficiency. Pulmonic Valve The pulmonic valve is not well visualized. Great Vessels Normal sized aortic root. Pericardium/Pleural No pericardial effusion. MMode/2D Measurements & Calculations LVIDd: 4.6 cm IVSd: 1.5 cm Ao root diam: 3.4 cm LVIDs: 3.1 cm LVPWd: 1.4 cm LA dimension: 3.7 cm RVDd: 4.2 cm FS: 32.8 % LAV(MOD-bp): 84.2 ml LVAd ap4: 30.0 cm2 SV(MOD-sp4): 42.4 ml LAV(MOD-bp) Indexed: 44.6 ml/m2 LVLd ap4: 8.6 cm LAV(MOD-sp2): 88.8 ml EDV(MOD-sp4): 84.5 ml LAV(MOD-sp4): 77.2 ml EDV(sp4-el): 88.7 ml LVAs ap4: 20.1 cm2 LVLs ap4: 7.7 cm ESV(MOD-sp4): 42.1 ml ESV(sp4-el): 44.2 ml EF(MOD-sp4): 50.2 % EF(sp4-el): 50.1 % SV(sp4-el): 44.4 ml LA A4 area: 25.8 cm2 RA A4 area: 21.9 cm2 TAPSE: 2.4 cm Time Measurements MV dec time: 0.18 sec Doppler Measurements & Calculations MV E max rere: 76.0 cm/sec Ao V2 max: 116.4 cm/sec MV A max rere: 60.7 cm/sec MV dec slope: 421.9 cm/sec2 Ao max P.4 mmHg MV E/A: 1.3 AI max rere: 362.5 cm/sec MR max rere: 402.6 cm/sec TR max rere: 338.6 cm/sec AI max P.6 mmHg MR max P.8 mmHg TR max P.8 mmHg AI dec slope: 237.8 cm/sec2 AI P1/2t: 446.5 msec ECHO/Echo Complete Interpretation Summary Moderate concentric left ventricular hypertrophy. The left ventricular ejection fraction is 55 %. Diastolic function is indeterminate. Moderate (2+) posteriorly directed mitral valve insufficiency. Mild tricuspid valve insufficiency. Right ventricular systolic pressure estimated to be 51 mmHg. Mild-Moderate (1-2+) aortic valve insufficiency. Ordering Physician: Lucila Cortes Performed By: Murali Snow RCS
[2023-01-17] MEDS: Aspirin 300 MG Suppository RC (16:34)
[2023-01-17 16:37] LABS: Lactic Acid 1.3 mmol/L (0.4-1.9)
[2023-01-17 16:52] LABS: Allen Test Positive; Base Excess -3 mmol/L (-2 to +2); Bicarbonate 21.4 mmol/L (22-26); Blood Gas Specimen Type ART; Mode Not entered; O2 Delivery Device Room Air; PO2 67 mmHG (75-100); SITE L Radial; SO2 94 % (95-99); Total Carbon Dioxide 22 mmol/L; pCO2 30.6 mmHg (35-45); pH 7.45 (7.35-7.45)
--- NOTE | 2023-01-17 18:03 | NURSING ---
0475 Pt unable to answer admission questions
[2023-01-17] MEDS: Lactated Ringers 1,000 ML 70 ML IV (18:04)
[2023-01-17 18:36] LABS: Bedside Glucose 102 mg/dL (74-106)
[2023-01-17] MEDS: Ipratropium/Albuterol Sulfate 3 ML AMPUL.NEB INHALATION (18:48)
[2023-01-17 18:53] LABS: Troponin-I HS 248 pg/mL (3.0-78.0)
[2023-01-17] MEDS: Glycerin/Hypromellose/PEG400 15 ml Bottle 1 DRP EACH EYE (22:46)
[2023-01-18] VITALS (9 sets, daily range): BP systolic 105–127; BP diastolic 55–70; PULSE 62–111; RESP 16–24; TEMP 36.2–36.8; O2SAT 94–98
[2023-01-18 00:54] LABS: Bedside Glucose 93 mg/dL (74-106)
[2023-01-18] MEDS: Ipratropium/Albuterol Sulfate 3 ML AMPUL.NEB INHALATION ×4 (01:50→20:10)
[2023-01-18 06:37] LABS: Bedside Glucose 89 mg/dL (74-106)
[2023-01-18 07:11] LABS: Absolute Lymphocyte Count 0.39 X10^3/uL (0.83-4.51); Absolute Neutrophil Count 4.6 X10^3/uL (2.0-7.7); Basophil# 0.01 X10^3/uL; Basophil% 0.2 % (0-1); Eosinophil# 0.05 X10^3/uL; Eosinophils% 0.9 % (0-5); Hematocrit 30.5 % (40-54); Hemoglobin 9.6 g/dL (13.0-16.5); Lymphocyte # 0.39 X10^3/ul (0.83-4.51); Lymphocyte % 6.9 % (19-41); Mean Corp Hgb Conc 31.5 g/dL (32-36); Mean Corpuscular Hgb 29.7 pg (27.0-32.0); Mean Corpuscular Volume 94.4 fL (80-94); Mean Platelet Vol. 10.4 fl (6.2-12.0); Monocyte# 0.53 X10^3/uL; Monocyte% 9.4 % (0-10); NRBC Flagged by Analyzer 0 % (0-5); Neutrophil # 4.58 X10^3/uL (2.7-7.7); POSITIVE DIFFERENTIAL YES; Platelet Count 101 K/mm3 (150-450); RBC Distribution Width SD 55.4 fl (35.1-43.9); Red Blood Count 3.23 M/mm3 (4.6-6.2); White Blood Count 5.7 K/mm3 (4.4-11.0)
[2023-01-18 07:12] LABS: Differential Indicated SCAN CRITERIA MET
[2023-01-18 07:47] LABS: ALB/GLOB Ratio 0.8 RATIO (0.9-2.4); AST(SGOT) 31 U/L (15-37); Alanine Aminotransfer ALT/SGPT 28 U/L (16-61); Albumin, Serum 1.9 g/dL (3.2-5.0); Alkaline Phosphatase 125 U/L (45-117); Anion Gap 5 (5-15); BUN 23 mg/dL (7-18); BUN/Creat Ratio 23.8 RATIO (10-20); Chloride 115 mmol/L (98-107); Creatinine, Serum 0.97 mg/dL (0.70-1.30); EST Glomerular Filtration Rate 79 mL/min (>60); Est Glom Filt Rate - Afr Amer 96 mL/min (>60); Estimated Creatinine Clearance 52.98 ml/min; Globulin 2.4 g/dL (2.2-4.2); Glucose 101 mg/dL (74-106); Magnesium 1.7 mg/dL (1.6-2.6); Phosphorus 2.6 mg/dL (2.5-4.9); Protein, Total 4.3 g/dL (6.4-8.2); Sodium Level 144 mmol/L (136-145)
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
--- NOTE | 2023-01-18 09:55 | CASEMGMT ---
Social Work [facility] received an email from Amber Roy from [facility] stating they will not take pt back due to his being combative with staff. Pt was sent there just yesterday. Pt's sister Amy is here now, SW spoke w/her in the lobby. Initially we spoke about next of kin. As per Amy, [facility] told her to get POA but she did not think this was possible given pt's mental status. SW did confirm with Amy that we cannot do POA when a pt is confused, the pt needs to be alert and oriented. SW inquired about family. Pt is , has a step son, and does have a son, Faustino Ulloa, who is in [place]. He has not been involved with pt for several years. She was able to provide a telephone number for him: [phone], however she states he may be incarcerated. There are no other children, the parents have . She is the only living sibling. She states she has been helping him here and has been his lithography contact worker at [facility] and the doctor's office. SW explained we may need to contact the son, or attempt to do so, but she will likely be the decision maker. Pt's sister states understanding. She inquired w/SW whether or not the shelter could just kick him out--SW explained we will look into this. She also states she doesn't think they put him in the memory care unit. SW explained can check on this as well. SW explained will speak w/physician about the best plan, if deedee-psych would be appropriate, or if we need to look into another shelter if [facility] truly won't take pt back. Pt's sister states understanding. SW did provide to pt's sister a list of residential facilities in network w/Medicaid, in preferred geographic area, and complete w/quality and resource use data. SW did ask her to review the list and pick out a few facilities. Pt's sister states understanding. SW explained will follow up w/the doctor and with [facility] today, and will let her know if we learn anything new. Pt's sister states understanding. CATARINA did call Amber Roy w/[facility], message left. CATARINA will continue to follow. CARROL Harman
[2023-01-18] MEDS: Lactated Ringers 1,000 ML 70 ML IV (10:05)
[2023-01-18] MEDS: Enoxaparin 40 MG/0.4 ML Syringe SC (10:07)
[2023-01-18] MEDS: levoFLOXacin IV 750 MG/150 ML BAG 100 MG IV (10:07)
[2023-01-18] MEDS: Aspirin 300 MG Suppository RC (10:07)
[2023-01-18 10:09] LABS: Differential Comment SCANNED
--- NOTE | 2023-01-18 10:38 | CASEMGMT ---
Social Work SW spoke w/pt's sister, pt does not have LW/POA. Pt cannot complete at this time due to confusion. CARROL Harman
[2023-01-18 13:24] LABS: Bedside Glucose 75 mg/dL (74-106)
--- NOTE | 2023-01-18 15:22 | CASEMGMT ---
Social Work SW did call pt's son Uli Ulloa at the number given to SW earlier. A message came on stating the mailbox is invalid. SW called pt's sister Amy to let her know. SW also let her know when pt is medically stable we will have him assessed for deedee-psych placement. SW also let Amy know that SW did not hear back from [facility]. She did confirm pt was not in a memory care room. SW to follow up Friday if pt is still here. CARROL Harman
[2023-01-18 17:26] LABS: Bedside Glucose 100 mg/dL (74-106)
[2023-01-18 17:58] LABS: M R Staph aureus DNA By PCR Negative (Negative); Probe Check PASS; Specimen Processing Control PASS
[2023-01-18] MEDS: Glycerin/Hypromellose/PEG400 15 ml Bottle 1 DRP EACH EYE (20:58)
[2023-01-18 23:28] LABS: Bedside Glucose 94 mg/dL (74-106)
[2023-01-19] VITALS (10 sets, daily range): BP systolic 117–132; BP diastolic 54–68; PULSE 70–100; RESP 16–24; TEMP 35.9–36.8; O2SAT 92–98
[2023-01-19] MEDS: Ipratropium/Albuterol Sulfate 3 ML AMPUL.NEB INHALATION ×3 (01:20→21:21)
[2023-01-19] MEDS: Lactated Ringers 1,000 ML 70 ML IV ×2 (05:09→18:39)
[2023-01-19 05:30] LABS: Bedside Glucose 110 mg/dL (74-106)
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
[2023-01-19] MEDS: levoFLOXacin IV 750 MG/150 ML BAG 100 MG IV (08:35)
[2023-01-19] MEDS: Enoxaparin 40 MG/0.4 ML Syringe SC (08:39)
[2023-01-19 12:18] LABS: Bedside Glucose 107 mg/dL (74-106)
[2023-01-19] MEDS: Aspirin 300 MG Suppository RC (13:45)
[2023-01-19 17:23] LABS: Bedside Glucose 137 mg/dL (74-106)
[2023-01-19] MEDS: Glycerin/Hypromellose/PEG400 15 ml Bottle 1 DRP EACH EYE (21:08)
[2023-01-19] MEDS: Atorvastatin Calcium 40 MG Tablet PO (21:08)
[2023-01-19 23:52] LABS: Bedside Glucose 157 mg/dL (74-106)
[2023-01-20] VITALS (7 sets, daily range): BP systolic 91–133; BP diastolic 42–62; PULSE 72–98; RESP 16–22; TEMP 36–36.8; O2SAT 95–98
[2023-01-20 06:23] LABS: Absolute Lymphocyte Count 0.29 X10^3/uL (0.83-4.51); Basophil# 0.02 X10^3/uL; Basophil% 0.4 % (0-1); Eosinophil# 0.02 X10^3/uL; Eosinophils% 0.4 % (0-5); Hematocrit 32.5 % (40-54); Hemoglobin 10.1 g/dL (13.0-16.5); Lymphocyte # 0.29 X10^3/ul (0.83-4.51); Mean Corp Hgb Conc 31.1 g/dL (32-36); Mean Corpuscular Hgb 30.2 pg (27.0-32.0); Mean Corpuscular Volume 97.3 fL (80-94); Monocyte# 0.45 X10^3/uL; Monocyte% 9.3 % (0-10); NRBC Flagged by Analyzer 0 % (0-5); Neutrophil # 3.99 X10^3/uL (2.7-7.7); Neutrophil % 82.5 % (47-70); POSITIVE DIFFERENTIAL YES; Platelet Count 105 K/mm3 (150-450); RBC Distribution Width CV 16.5 % (11.6-14.6); RBC Distribution Width SD 57.3 fl (35.1-43.9); Red Blood Count 3.34 M/mm3 (4.6-6.2); White Blood Count 4.8 K/mm3 (4.4-11.0)
[2023-01-20 06:50] LABS: Differential Indicated SCAN CRITERIA MET
[2023-01-20 06:55] LABS: Bedside Glucose 114 mg/dL (74-106)
[2023-01-20] MEDS: Ipratropium/Albuterol Sulfate 3 ML AMPUL.NEB INHALATION (06:59)
[2023-01-20 07:02] LABS: Anion Gap 3 (5-15); BUN 23 mg/dL (7-18); BUN/Creat Ratio 22.1 RATIO (10-20); Calcium,Total 8.3 mg/dL (8.5-10.1); Chloride 112 mmol/L (98-107); Creatinine, Serum 1.04 mg/dL (0.70-1.30); EST Glomerular Filtration Rate 73 mL/min (>60); Est Glom Filt Rate - Afr Amer 88 mL/min (>60); Estimated Creatinine Clearance 49.42 ml/min; Glucose 151 mg/dL (74-106); Potassium 3.9 mmol/L (3.5-5.1); Sodium Level 138 mmol/L (136-145)
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
[2023-01-20] MEDS: Lactated Ringers 1,000 ML 70 ML IV ×2 (09:11→23:01)
[2023-01-20] MEDS: levoFLOXacin IV 750 MG/150 ML BAG 100 MG IV (09:13)
[2023-01-20] MEDS: Levothyroxine 75 MCG Tablet PO (09:14)
[2023-01-20] MEDS: Lisinopril 5 MG Tablet PO (09:15)
[2023-01-20] MEDS: Enoxaparin 40 MG/0.4 ML Syringe SC (09:15)
--- NOTE | 2023-01-20 09:47 | CASEMGMT ---
Physician said patient is medically cleared for crisis evaluation. SW called crisis with request for evaluation and also faxed information. Gina GARDNER
--- NOTE | 2023-01-20 10:48 | CASEMGMT ---
Crisis is at [facility] to evaluate patient. Gina Mir DENTURE CONTOUR WIRE SPECIALIST SOAP DRIER TENDER
--- NOTE | 2023-01-20 11:09 | CASEMGMT ---
SW spoke with computer recycling worker. She requested a Covid test and the physicians note indicating patient is medically cleared for evaluation. SW notified RN and physician. CATARINA will fax this information once completed. Gina GARDNER
[2023-01-20] MEDS: Insulin Lispro 100 UNIT/ML INSULN.PEN SC (12:18)
[2023-01-20 12:39] LABS: Bedside Glucose 218 mg/dL (74-106)
--- NOTE | 2023-01-20 13:03 | CASEMGMT ---
[facility]ya Maravillata called and declined patient due to medical complexity. Gina Mir CLAIMS SERVICE REPRESENTATIVE KENDRA
--- NOTE | 2023-01-20 13:52 | CASEMGMT ---
CATARINA faxed Covid test and physician's note to crisis. Gina Mir HEALTH ASSESSMENT AND TREATMENT TEACHER KENDRA
--- NOTE | 2023-01-20 14:44 | CASEMGMT ---
CATARINA received a call from Nicole with [facility]. CATARINA updated her on patient's status and pending [facility] placement. Nicole asked that CATARINA keep her updated. Gina GARDNER
--- NOTE | 2023-01-20 14:59 | CASEMGMT ---
SW received a call from [facility] and they were asking about the discharge plan from the psych unit. SW let the individual know that patient's sister has a list of facilities that take patient's insurance. The individual did not think patient's understood this. SW called patient's sister Amy and left her a voice mail requesting a return call. Gina GARDNER
--- NOTE | 2023-01-20 15:06 | CASEMGMT ---
SW spoke with patient's sister Amy and she is aware she will need to pick another facility for patient. Gina GARDNER
--- NOTE | 2023-01-20 15:58 | CASEMGMT ---
[facility] is denying patient as there is no discharge plan in place when patient is discharged from [facility]. CATARINA did talk with patient's sister earlier and she said [facility] would be the next choice. CATARINA asked Desirae to send a referral to [facility] making sure to notify them that patient will go to geriatric psych unit first and then come to them. [facility] was notified that SW is sending a referral to [facility]. Gina Mir MSW KENDRA
--- NOTE | 2023-01-20 16:17 | CASEMGMT ---
Discharge Planning Referral sent to [facility]) via [facility]. Desirae Keys, Discharge Planning Asst.
[2023-01-20 17:16] LABS: Bedside Glucose 149 mg/dL (74-106)
[2023-01-20] MEDS: Atorvastatin Calcium 40 MG Tablet PO (19:55)
[2023-01-20] MEDS: Glycerin/Hypromellose/PEG400 15 ml Bottle 1 DRP EACH EYE (19:55)
[2023-01-20 23:25] LABS: Bedside Glucose 140 mg/dL (74-106)
[2023-01-21] MEDS: Levothyroxine 75 MCG Tablet PO (05:13)
[2023-01-21 05:46] LABS: Bedside Glucose 140 mg/dL (74-106)
[2023-01-21 05:54] VITALS: BP 103/54; PULSE 80; RESP 20; TEMP 36.6
--- NOTE | 2023-01-21 07:42 | CASEMGMT ---
[facility] has declined patient, however they would re-consider patient after [facility]. Gina Mir LOAN OPERATIONS SPECIALIST FIELD INTERVIEWER
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
[2023-01-21] MEDS: Aspirin 81 MG TAB.CHEW PO (08:53)
[2023-01-21] MEDS: levoFLOXacin IV 750 MG/150 ML BAG 100 MG IV (08:53)
[2023-01-21] MEDS: Enoxaparin 40 MG/0.4 ML Syringe SC (08:54)
--- NOTE | 2023-01-21 09:57 | CASEMGMT ---
CATARINA called [facility] and spoke with Hetal in crisis. SW explained that patient's sister was agreeable to [facility]. SW sent a referral and initially they said no, but then they did say they would re-consider after [facility] psych. Hetal said they have received denials from 9 separate facilities. Denials are due to medical acuity, COVID, and no d/c plan. CATARINA explained patient will be out of Covid precautions tomorrow and patient has not exhibited any Covid symptoms. Hetal said they will keep working on placement and she will also update [facility] on [facility] possibility. Gina Mir BAG REPAIRER INSIDE ACCOUNT EXECUTIVE
--- NOTE | 2023-01-21 10:39 | CASEMGMT ---
CATARINA received a call from patient's sister Amy. Amy wanted to make sure SW got her message about [facility] ([facility]). CATARINA let her know [facility] said they would consider taking patient after psych placement. CATARINA asked if there was anywhere else she would be okay with. Amy said anywhere as long as it is somewhat close to [place]. CATARINA asked Desirae to send referrals to [facility], [facility], [facility], and [facility]. CATARINA called Amber with [facility]. CATARINA asked if they were going to issue patient a written notice of discharge from their facility. Amber said she will have to check on this as she was not sure. CATARINA asked if they would re-consider patient after his psychiatric placement. Amber was not sure, but she did say they would have to do an onsite to see if he would be appropriate. Gina Mir TRANSMISSION MECHANIC KENDRA
--- NOTE | 2023-01-21 11:09 | CASEMGMT ---
Discharge Planning Referral sent via [facility] to [facility], [facility], [facility], and [facility]. Desirae eKys, Discharge Planning Asst.
[2023-01-21 11:32] VITALS: BP 103/54; PULSE 80; RESP 20; TEMP 36.6; O2SAT 96
[2023-01-21 12:07] LABS: Bedside Glucose 139 mg/dL (74-106)
--- NOTE | 2023-01-21 13:54 | CASEMGMT ---
[facility] ([facility] is willing to review patient when getting ready for discharge from the psychiatric unit. Ermias from [facility] (aka [facility]) came to see patient. Ermias said they would be willing to review patient when getting ready for discharge from the psychiatric unit. [facility] said the same. Waiting on [facility] to respond. SW will then call [facility] and update them. Gina Mir TILE MOLDER HAND KENDRA
[2023-01-21 15:00] VITALS: BP 115/48; PULSE 81; RESP 16; TEMP 35.9; O2SAT 95
--- NOTE | 2023-01-21 16:23 | CASEMGMT ---
CATARINA called crisis and spoke with Ira. CATARINA explained SW has 3 facilities that are willing to consider patient when he is ready for discharge from the psych unit. Ira said [facility] said that would be sufficient and they would need that in writing. CATARINA faxed CATARINA's note indicating which facilities would be willing to consider patient. Await response from [facility]. Gina Mir JANITORIAL TECH KENDRA
[2023-01-21 17:33] LABS: Bedside Glucose 122 mg/dL (74-106)
[2023-01-21 21:00] VITALS: BP 123/60; PULSE 86; RESP 14; TEMP 36.6; O2SAT 95
--- NOTE | 2023-01-21 21:00 | NURSING ---
Addendum entered by Dania Campos 01/21/23 21:07: Grazyna is affiliated with [facility] and not crisis. Grazyna called back and said that she had forgotten that they currently had a waitlist and that transfer would depend on bed availability, but that pt is the first in line for a male bed. Grazyna adds she will call back when a bed is available to start the process and initiate pink slip. Mary ECHAVARRIA Original Note: This RN spoke with Grazyna with crisis and was informed that [facility] will accept pt, pending discharge order. Grazyna states that pt will need pink slipped and that would be best dated and signed tomorrow, 01/22/23. Germaine from counseling center was also updated and states that she will call tomorrow to assure everything is in place for transfer. Mary ECHAVARRIA
[2023-01-21] MEDS: Glycerin/Hypromellose/PEG400 15 ml Bottle 1 DRP EACH EYE (21:14)
[2023-01-21] MEDS: Atorvastatin Calcium 40 MG Tablet PO (21:14)
[2023-01-22] VITALS (8 sets, daily range): BP systolic 98–125; BP diastolic 52–99; PULSE 73–116; RESP 14–16; TEMP 36.6–37.2; O2SAT 92–95
[2023-01-22 00:40] LABS: Bedside Glucose 137 mg/dL (74-106)
[2023-01-22] MEDS: Levothyroxine 75 MCG Tablet PO (06:06)
[2023-01-22 06:21] LABS: Bedside Glucose 116 mg/dL (74-106)
[2023-01-22] MEDS: levoFLOXacin IV 750 MG/150 ML BAG 100 MG IV (09:08)
[2023-01-22] MEDS: Enoxaparin 40 MG/0.4 ML Syringe SC (09:08)
[2023-01-22] MEDS: Aspirin 81 MG TAB.CHEW PO (09:09)
--- NOTE | 2023-01-22 10:21 | CASEMGMT ---
SW called [facility] and [facility] is willing to take patient, but they need a pink slip. SW will speak with physician and obtain a pink slip to send to [facility]. Gina GARDNER
[2023-01-22 11:30] LABS: Bedside Glucose 141 mg/dL (74-106)
--- NOTE | 2023-01-22 11:45 | CASEMGMT ---
Per charge account clerk [facility] did not have a bed available for patient last night. CATARINA called Hetal at crisis back and she said she would check. Hetal called CATARINA back and said she is waiting on [facility] to call her back. Gina GARDNER
--- NOTE | 2023-01-22 13:47 | CASEMGMT ---
CATARINA received a request from [facility] to fax the pink slip to [facility] [phone]. CATARINA faxed pink slip to [facility]. Gina Mir BRAND MARKETING SPECIALIST PLANT MAINTENANCE ENGINEER
--- NOTE | 2023-01-22 15:40 | CASEMGMT ---
CATARINA received a call from crisis asking SW to fax the pink slip to them also. SW let them know SW did fax pink slip to [facility]. CATARINA also called and left a voice mail for Myesha with [facility] letting her know patient may be going to [facility]. SW placed original and a copy of the pink slip in patient's chart. Original goes with patient to the psych facility. Gina Mir FATBACK TRIMMER KENDRA
--- NOTE | 2023-01-22 16:14 | CASEMGMT ---
SW called crisis and let them know SW is leaving for the day and they should contact PCU. Gina Mir SECTION GANG WORKER KENDRA
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
--- NOTE | 2023-01-22 16:40 | TREXTCAR_ITS ---
Diet Diet Order/Speech Therapy: 01/20/23 08:00 Diet: Regular - General Food consistency:: Mechanical (Minced/Moist) Liquid Consistency:: Regular/Thin Is pt able to select menu?: No Diet Comments: Small bites, small sips, slow rate, HOB 90 degrees, Routine Orders/Code Status Suppository Type: Dulcolax 10mg Suppository Frequency: Daily PRN Wound(s) lt knee: Wound Type: old healing scabs Problem/Diagnosis (1) Encephalopathy: Status: Acute Code(s): G93.40 - Encephalopathy, unspecified (2) Pneumonia: Status: Acute Code(s): J18.9 - Pneumonia, unspecified organism (3) Elevated troponin: Status: Acute Code(s): R79.89 - Other specified abnormal findings of blood chemistry (4) COVID-19: Status: Acute Code(s): U07.1 - COVID-19 Allergies/Procedures Done in Hospital Allergies Penicillins Allergy (Unknown, Verified 01/14/23 18:13) NEEDS FOLLOW-UP Type of Care/Length of Stay Estimated LOS: Convalescent Care Less Than 30 days Type of Care Needed: Skilled Rehab Potential: Fair Prognosis: Fair Additional Orders/Day of Discharge Day of Discharge: 01/22/23 Dietary and Speech Recommendations Dietitian Recommendations/Changes: Recommend liberalized regular diet upon diet advancement/when safe for PO intake along with COLLEGE PHYSICS INSTRUCTOR recommendations for any needed modified textures or liquids. Will add magic cup w/ lunch and dinner upon advancement as well as ensure plus high protein TID with meals to help increase oral intakes. Discharge Plan Admission Admit Date/Time: 01/17/23 15:38 Primary Reason for Your Visit: Acute encephalopathy, [id number] Attending Provider: Pierce Barros Primary Care Provider: Harshil Franklin Consulting Providers: Lucila Cortes; Doug Mora Discharge Orders/Prescriptions Prescriptions: New levofloxacin 750 mg Tablet 750 mg PO DAILY@0600 Qty: 0 0RF olanzapine 5 mg Tablet,Disintegrating 2.5 mg PO Q6 PRN (Reason: agitation/combativeness) Qty: 0 0RF insulin lispro [Humalog KwikPen Insulin] 100 unit/mL Insulin Pen See Protocol subcut Q6 Qty: 0 0RF Protocol: 2. Sliding Scale Insulin Low-Med Dosing Condition: 150-209 mg/dl = 1 unit Condition: 210-269 mg/dl = 2 units Condition: 270-329 mg/dl = 3 units Condition: 330-389 mg/dl = 4 units Condition: 390-449 mg/dl = 5 units Condition: Greater than 449 call physician Protocol Text: - Use for Total Daily Dose of Insulin 28-36 units - Average size patients LOW MEDIUM DOSING ALGORITHM Continued metformin 1,000 mg tablet 1,000 mg PO BIDWMEAL Patient Comments: 1 TABLET BY MOUTH TWICE ATDAY WITH MEALS DX:DMIIM atorvastatin 40 mg tablet 40 mg PO QHS Patient Comments: 1 TABLET BY MOUTH DAILY DX: carboxymethylcellulose sodium [Refresh Liquigel] 1 % drops, liquid gel 1 drp ophthalmic (eye) QHS levothyroxine 50 mcg capsule 75 mcg PO DAILY acetaminophen 325 mg Tablet 650 mg PO Q4H PRN PRN (Reason: Fever, pain 1-12/31) Qty: 0 0RF lisinopril 5 mg tablet 5 mg PO DAILY aspirin 81 mg tablet,chewable 81 mg PO DAILY@0800 Qty: 90 3RF Patient Comments: heart [employer] Held Paxlovid 300 mg (150 mg x 2)-100 mg tablets,dose pack See Rx Instructions .ROUTE .COMPLEX Hold Instructions: Hold it until patient has symptoms of COVID. Currently he does not need it Rx Instructions: take TWO 150 mg tablets of nirmatrelvir with ONE 100 mg tablet of ritonavir twice daily for 5 days Discontinued amoxicillin-pot clavulanate 875-125 mg tablet 1 tab PO Q12H Referrals / Follow Up: Harshil Franklin MD [Primary Care Provider] - Disposition Disposition (needs filled in before D/C Order can be placed): Psychiatric Hospital or Unit
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
[2023-01-22 17:01] LABS: Bedside Glucose 149 mg/dL (74-106)
[2023-01-22] MEDS: Atorvastatin Calcium 40 MG Tablet PO (23:27)
[2023-01-22] MEDS: Glycerin/Hypromellose/PEG400 15 ml Bottle 1 DRP EACH EYE (23:27)
[2023-01-22] MEDS: Insulin Lispro 100 UNIT/ML INSULN.PEN SC (23:28)
[2023-01-23] VITALS (24 sets, daily range): BP systolic 84–135; BP diastolic 41–67; PULSE 86–110; RESP 12–28; TEMP 36.4–37.5; O2SAT 85–98
[2023-01-23 01:01] LABS: Bedside Glucose 164 mg/dL (74-106)
--- NOTE | 2023-01-23 04:58 | NURSING ---
pt get back into bed from the recliner, lungs moist, bp low 101/44. place on o2, did not recover, on 7l high flow, 90% called dr andrews notified, to place pt on bipap
--- NOTE | 2023-01-23 05:10 | NURSING ---
bipap placed 08/03 50%
--- NOTE | 2023-01-23 06:28 | PCM.HOSP.N ---
Hospitalist Note Patient with overloaded appearance. BP low range, stable otherwise. Placed on BIPAP to assist, well tolerated.
[2023-01-23] MEDS: Levothyroxine 75 MCG Tablet PO (06:56)
[2023-01-23] MEDS: levoFLOXacin 750 MG Tablet PO (06:56)
[2023-01-23 07:35] LABS: Bedside Glucose 144 mg/dL (74-106)
--- NOTE | 2023-01-23 08:40 | RAD_ITS ---
STUDY: X-RAY CHEST REASON FOR EXAM: Male, 82 years old. Sob TECHNIQUE: Single AP portable view of the chest. COMPARISON: Comparison is made with prior study January 17, 2023. FINDINGS: EKG electrodes are seen. Slight improvement in the right lower lobe infiltrate. Progressive infiltration at the left lung base with a small left pleural effusion. There is mild cardiac enlargement. A left-sided dual-chamber pacemaker is seen. Normal mediastinum and edis. Normal visualized pulmonary arteries. There is atherosclerotic tortuosity of the aortic arch and descending thoracic aorta. There are degenerative changes of the visualized thoracic spine. There is degenerative osteoarthritis of the bilateral shoulders. There is no demonstrated abnormality of the visualized soft tissue structures of the upper abdomen. RAD/Chest 1 View (Portable) IMPRESSION: Progressive left lower lobe infiltrate with small left pleural effusion. Improved aeration at the right lung base. Electronically Signed: Vaibhav Magaña MD at 13:19 EDT ,
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
--- NOTE | 2023-01-23 09:00 | CASEMGMT ---
SW received a call from crisis. [facility] would like a Covid test, any notes on recent behaviors, and a pink slip dated for today. Gina Mir HOTEL ASSOCIATE BESSEMER CONVERTER OPERATOR
[2023-01-23 09:30] LABS: Absolute Lymphocyte Count 0.42 X10^3/uL (0.83-4.51); Absolute Neutrophil Count 5.5 X10^3/uL (2.0-7.7); Basophil# 0.01 X10^3/uL; Basophil% 0.2 % (0-1); Hematocrit 24.3 % (40-54); Hemoglobin 7.6 g/dL (13.0-16.5); Lymphocyte # 0.42 X10^3/ul (0.83-4.51); Lymphocyte % 6.5 % (19-41); Mean Corp Hgb Conc 31.3 g/dL (32-36); Mean Corpuscular Hgb 28.8 pg (27.0-32.0); Mean Platelet Vol. 10.5 fl (6.2-12.0); Monocyte# 0.53 X10^3/uL; Monocyte% 8.2 % (0-10); NRBC Flagged by Analyzer 0 % (0-5); Neutrophil # 5.45 X10^3/uL (2.7-7.7); Neutrophil % 83.9 % (47-70); POSITIVE COUNT YES; POSITIVE DIFFERENTIAL YES; Platelet Count 66 K/mm3 (150-450); RBC Distribution Width CV 16.5 % (11.6-14.6); RBC Distribution Width SD 54.9 fl (35.1-43.9); Red Blood Count 2.64 M/mm3 (4.6-6.2); White Blood Count 6.5 K/mm3 (4.4-11.0)
[2023-01-23 09:31] LABS: Differential Indicated SCAN CRITERIA MET
[2023-01-23 09:42] LABS: Platelet Estimate MOD DEC (ADEQ)
[2023-01-23 09:47] LABS: ALB/GLOB Ratio 0.6 RATIO (0.9-2.4); AST(SGOT) 24 U/L (15-37); Alanine Aminotransfer ALT/SGPT 22 U/L (16-61); Albumin, Serum 1.5 g/dL (3.2-5.0); Alkaline Phosphatase 189 U/L (45-117); Anion Gap 3 (5-15); BUN 26 mg/dL (7-18); BUN/Creat Ratio 23.2 RATIO (10-20); Chloride 108 mmol/L (98-107); Creatinine, Serum 1.12 mg/dL (0.70-1.30); EST Glomerular Filtration Rate 67 mL/min (>60); Est Glom Filt Rate - Afr Amer 81 mL/min (>60); Estimated Creatinine Clearance 45.89 ml/min; Globulin 2.5 g/dL (2.2-4.2); Glucose 140 mg/dL (74-106); Magnesium 1.6 mg/dL (1.6-2.6); Potassium 3.6 mmol/L (3.5-5.1); Sodium Level 137 mmol/L (136-145)
[2023-01-23] MEDS: Menthol/Lanolin/Calamine/Znox 113 GM Tube 1 APPLIC TOPICAL (09:54)
[2023-01-23] MEDS: Enoxaparin 40 MG/0.4 ML Syringe SC (09:54)
[2023-01-23] MEDS: 0.9% Saline Lock 10 ML Syringe IV ×3 (09:54→17:08)
[2023-01-23] MEDS: Furosemide 20 MG/2 ML VIAL IV ×2 (09:54→17:08)
[2023-01-23] MEDS: Aspirin 81 MG TAB.CHEW PO (10:00)
[2023-01-23 10:14] LABS: BNP,B-Type NATRIURETIC PEPTIDE 175.8 pg/mL (0-100)
[2023-01-23 10:24] LABS: Allen Test Positive; Base Excess -1 mmol/L (-2 to +2); Bicarbonate 23.5 mmol/L (22-26); Blood Gas Specimen Type ART; Mode Not entered; O2 Delivery Device BiPAP; PO2 82 mmHG (75-100); SITE L Radial; SO2 97 % (95-99); Total Carbon Dioxide 25 mmol/L; pCO2 33.9 mmHg (35-45); pH 7.45 (7.35-7.45)
--- NOTE | 2023-01-23 11:24 | CASEMGMT ---
CATARINA faxed Covid test and updated pink slip to crisis. CATARINA also called crisis and spoke to [place]. CATARINA explained to [place] that patient is now on 4L of O2 and physician feels he was fluid overloaded so they are diuresing patient. [place] did not know if that would be a problem with [facility]. [place] will forward information CATARINA sent to [facility]. Gina Mir DIRECTOR MUSEUM OR ZOO KENDRA
--- NOTE | 2023-01-23 11:48 | CASEMGMT ---
CATARINA received a message from Nahum at [facility]. CATARINA called Nahum. She received CATARINA's fax. Nahum saw patient is on O2 and their doctor would like to review the physician's note from today. CATARINA told Nahum that our physician thinks patient will be ready tomorrow. Patient may not even need O2 tomorrow. Nahum said that is fine she will follow up with CATARINA or crisis tomorrow am. Nahum told CATARINA they will need another pink slip tomorrow dated tomorrow. CATARINA will fax physicians note as soon as it is completed. Plan: Hopefully d/c to [facility] tomorrow 11-3. Gina GARDNER
--- NOTE | 2023-01-23 12:10 | CT_ITS ---
STUDY: CTA CHEST REASON FOR EXAM: Male, 82 years old. Dyspnea RADIATION DOSAGE (If Supplied By Facility): CTDIvol = ( 18.05 ) mGy, DLP = ( 429.05 ) mGycm TECHNIQUE: The examination was performed with the intravenous administration of 100ML OF ISOVUE 370. Post-processing of the angiographic images was performed, with multiplanar reformation and 3D reconstruction. Individualized dose optimization techniques were used for this CT. COMPARISON: Comparison is made with prior chest radiograph dated January 17, 2023. FINDINGS: A left-sided subclavian catheter seen with the tip in the superior vena cava. Normal enhancement of the main pulmonary artery and right and left pulmonary arteries. Normal enhancement of the bilateral peripheral pulmonary arteries. There is no demonstrated pulmonary embolism. Normal thoracic aorta and visualized great vessels. There is no demonstrated aortic dissection. There are calcifications of the coronary arteries. A dual-chamber pacemaker is seen. Normal mediastinum. Normal hilar regions. Normal visualized trachea and bronchi. The lungs are well expanded. Bibasilar pulmonary infiltrates with small bilateral effusions slightly worse on the left side. This also evidence of focal infiltrate in the posterior aspect of the lingular segment of the left upper lobe. Partially calcified granuloma in the peripheral lateral aspect of the left upper lobe. Normal chest wall structures. There are degenerative changes of thoracic spine. The patient is status post cholecystectomy. CT/CTA Chest W/WO Contrast IMPRESSION: Infiltrates in both lower lobes as well as in the posterior aspect of the lingular segment of the left upper lobe with small bilateral effusions worse on the left side. No evidence of a pulmonary embolism. Coronary artery calcification. Electronically Signed: Vaibhav Magaña MD at 12:45 EDT ,
[2023-01-23 13:09] LABS: Bedside Glucose 138 mg/dL (74-106)
[2023-01-23] MEDS: Sodium Ferric Gluconat/Sucrose 250 MG in 0.9% Normal Saline (250mL Bag) 250 ML 135 MG IV (13:38)
[2023-01-23] MEDS: metroNIDAZOLE 500 MG Tablet PO ×2 (14:26→20:36)
[2023-01-23] MEDS: guaiFENesin/D-Methorphan TAB.SR.12H 1 TABLET PO ×2 (14:26→20:36)
[2023-01-23 17:30] LABS: Bedside Glucose 105 mg/dL (74-106)
[2023-01-23] MEDS: Atorvastatin Calcium 40 MG Tablet PO (20:36)
[2023-01-23] MEDS: Glycerin/Hypromellose/PEG400 15 ml Bottle 1 DRP EACH EYE (20:36)
[2023-01-24] VITALS (13 sets, daily range): BP systolic 84–108; BP diastolic 48–61; PULSE 64–98; RESP 14–28; TEMP 36.4–37.4; O2SAT 2–98
[2023-01-24] MEDS: Menthol/Lanolin/Calamine/Znox 113 GM Tube 1 APPLIC TOPICAL ×3 (00:13→21:00)
[2023-01-24] MEDS: Acetaminophen 325 MG Tablet 650 MG PO ×3 (00:15→14:51)
[2023-01-24 00:39] LABS: Bedside Glucose 156 mg/dL (74-106)
--- NOTE | 2023-01-24 04:44 | CPS ---
Pt is unable to use PEP effectively.
[2023-01-24] MEDS: levoFLOXacin 750 MG Tablet PO (06:17)
[2023-01-24] MEDS: Levothyroxine 75 MCG Tablet PO (06:18)
[2023-01-24] MEDS: metroNIDAZOLE 500 MG Tablet PO ×3 (06:18→23:28)
--- NOTE | 2023-01-24 06:38 | EX.PCM.CONCC ---
Assessment & Plan Assessment/Plan (1) Acute respiratory failure with hypoxia: PLAN: Plan RECOMMENDATIONS: 1. Wean supplemental oxygen to maintain saturations at or above 90%. 2. Continue Levaquin to complete treatment course. 3. Ongoing diuresis as tolerated by hemodynamics and renal function. 4. Encourage aggressive bronchopulmonary hygiene and mobilize patient as tolerated. 5. Maintain aspiration precautions and modified diet per speech therapy recommendations. 6. Please call with any additional questions. IMPRESSIONS: 1. Hypoxemia Most likely multifactorial in etiology. The patient was recently hospitalized with COVID-19. This hospitalization has included treatment for pseudomonal pneumonia. I also suspect that the patient has a component of underlying diastolic dysfunction and pulmonary hypertension, which given his current volume status, will need to be managed with diuretic therapy, as tolerated by hemodynamics and renal function. I agree with continuing Levaquin to complete his treatment course. He should be maintained on a specialized diet per speech therapy recommendations, given high risk for future aspiration events. Aside from the aforementioned, continue to encourage aggressive bronchopulmonary hygiene, including incentive spirometer use and mobilize patient as tolerated. Continue to wean his supplemental oxygen to maintain saturations at or above 90%. At the present time, the patient is maintaining saturations in the mid to high 90s on 2 L/min. I will defer management of diuretics to the patient's hospitalist. 2. Generalized debility and weakness/anemia/history of coronary artery disease/diabetes mellitus/hypothyroidism/GERD Complicates care, management, recovery and prognosis. Continue home medications as indicated. Disposition planning is underway for geriatric/psych facility. This note was generated with [employer] dictation software. It may contain incorrect words, spelling, and punctuation that were not noted in checking the note before signing. HPI Consult Data Date of Consult: 01/24/23 HPI Narrative Reason for Consultation: Hypoxemia HPI Narrative: The patient is an 82-year-old male, with a history as outlined below, who presented to the emergency department on January 17 with altered mental status. The patient had previously been hospitalized for 5 days in December 2022 with COVID-19 pneumonia complicated by gastrointestinal bleed. The patient has known history of dementia, anemia, coronary artery disease, hypertension, hyperlipidemia, GERD with angiodysplastic lesions and hypothyroidism. On presentation to the emergency department, the patient was documented to have a temperature of 95.9 ?F. He was mildly tachycardic and tachypneic, but otherwise hemodynamically stable and maintaining appropriate oxygen saturations on room air. The patient has not had an elevated white blood cell count throughout his hospitalization. Hemoglobin was stable until January 23, at which time, he was documented to have a hemoglobin of 7.6 g/dL. Platelet count was low at 66,000. Chemistry profile has been unrevealing. However, the patient did have a lactate of 2.1 on admission. Troponin was elevated at admission at 253. CTA chest was completed on January 23 and demonstrated no evidence for pulmonary embolism. However, there were bilateral lower lobe infiltrates along with a focal infiltrate in the lingula and small bilateral pleural effusions. The patient is currently documented to be greater than 7 L positive for the hospitalization. On the morning of January 23, the patient was noted by the overnight hospitalist to be volume overloaded in appearance. BiPAP was utilized to help with volume optimization. Of note, the patient did have a sputum culture from January 14 which was positive for Pseudomonas, which was pansensitive. Surface echocardiogram revealed moderate concentric LVH with an ejection fraction of 55% and indeterminate diastolic function. Pulmonary artery systolic pressure was estimated to be 51 mmHg. As of this morning, the patient was able to be weaned to 2 L/min of supplemental oxygen and is maintaining saturations in the mid to high 90s. FOR[facility]LY [facility] Medical History Atherosclerotic heart disease of [place] coronary artery without angina pectoris Chronic renal insufficiency Diabetes mellitus, type II Essential hypertension Hyperlipidemia Hypothyroidism Ischemic cardiomyopathy Nonrheumatic mitral valve regurgitation NSTEMI (non-ST elevated myocardial infarction) Overweight (BMI 25.0-29.9) Presence of permanent cardiac pacemaker (~10/03/16) Sinus bradycardia Sinus pause Systolic dysfunction Home Medications aspirin 81 mg chewable tablet 81 mg PO DAILY@0800 ##90 11/21/17 [Rx Last Taken 01/11/23] atorvastatin 40 mg tablet 40 mg PO QHS cholesterol 06/04/21 [History Last Taken 01/06/23] carboxymethylcellulose sodium 1 % eye liquid gel drops (Refresh Liquigel) 1 drp ophthalmic (eye) QHS dry eyes 06/04/21 [History Last Taken 01/15/23] metformin 1,000 mg tablet 1,000 mg PO BIDWMEAL diabetes 06/04/21 [History Last Taken 01/11/23] levothyroxine 50 mcg capsule 75 mcg PO DAILY hypothyroidism 08/20/22 [History Last Taken 01/14/23] acetaminophen 325 mg tablet 650 mg (2 x 325 mg) PO Q4H PRN PRN Fever, pain 1-12/31 #0 tabs 01/16/23 [Rx Last Taken Unknown] lisinopril 5 mg tablet 5 mg PO DAILY 01/17/23 [History Last Taken 01/12/23] nirmatrelvir 300 mg (150 mg x2)-ritonavir 100 mg tablet,dose pack (Paxlovid) See Rx Instructions PO .COMPLEX 01/17/23 [History Last Taken 01/11/23] insulin lispro 100 unit/mL subcutaneous pen (Humalog KwikPen (U-100) Insulin) See Protocol subcut Q6 #0 mL 01/22/23 [Rx Last Taken Unknown] levofloxacin 750 mg tablet 750 mg PO DAILY@0600 #0 tabs 01/22/23 [Rx Last Taken Unknown] olanzapine 5 mg disintegrating tablet 2.5 mg (1/2 x 5 mg) PO Q6 PRN agitation/combativeness #0 tabs 01/22/23 [Rx Last Taken Unknown] Allergy/AdvReac Type Severity Reaction Status Date / Time Penicillins Allergy Unknown NEEDS Verified 01/14/23 18:13 FOLLOW-UP Family History Father Heart disease Hypertension CAD (coronary artery disease) Surgical History History of cholecystectomy History of inguinal hernia repair History of tonsillectomy and adenoidectomy Hx of appendectomy Postsurgical percutaneous transluminal coronary angioplasty (PTCA) status Presence of stent in coronary artery (~10/02/16) S/P cardiac pacemaker procedure Social History household members: none housing: assisted living facility Smoking Status: Former smoker alcohol intake: never substance use type: does not use ROS ROS Narrative 10 systems were reviewed with pertinent positives as noted in the HPI above. Physical Exam Const alert and no apparent distress General Appearance: cooperative HEENT normocephalic and head/scalp atraumatic Eyes PERRL, EOMs intact bilaterally and conjunctivae normal Neck supple General: trachea midline Chest inspection of chest normal Resp normal respiratory effort Resp Narrative: Frequent paroxysms of coughing Auscultation: diminished lung sounds Cardio regular rate and regular rhythm GI normal to inspection, nondistended, normoactive bowel sounds Extremity General Extremity: edema bilateral lower extremity Neuro CN's II-XII intact bilaterally and moves all extremities Psych Mood & Affect: flat affect Medical Records Data Medical Nutrition Assessment Dietitian: Malnutrition Criteria Met Start: 01/18/23 14:12 Freq: Status: Active Protocol: Document 01/23/23 10:14 AG (Rec: 01/23/23 10:14 AG Desktop) Nutrition Malnutrition Evidence of Malnutrition Exists Yes Malnutrition (severe): Chronic Evidenced By Suboptimal Energy Intake ( Severe),Weight Loss (Severe) Clinical Problem Chronic Disease or Condition Related Malnutrition Etiology severe, chronic malnutrition related to inadequate energy intake Signs/Symptoms as evidenced by significant weight loss of 10% x ~6 months , estimated PO intake meeting <50% of estimated energy needs Status Active Problem Recommendation Dietitian Recommendations/Changes as medically appropriate continue regular diet- texture /consistency per SECURITY CONTROL ASSESSOR; will add 120mL ensure plus high protein TID w/ meals for additional nutrition if consumed Lab / Micro Data 01/24/23 07:08 01/24/23 07:08 Labs: Laboratory Results - last 24 hr 01/23/23 07:17: POC Glucose 144 H 01/23/23 09:10: WBC 6.5, RBC 2.64 L, Hgb 7.6 L, Hct 24.3 L, MCV 92.0 D, MCH 28.8, MCHC 31.3 L, RDW Std Deviation 54.9 H, RDW Coeff of Taniya 16.5 H, Plt Count 66 L, MPV 10.5, Immature Gran % (Auto) 1.200 H, Neut % (Auto) 83.9 H, Lymph % (Auto) 6.5 L, [place] % (Auto) 8.2, Eos % (Auto) 0.0, Baso % (Auto) 0.2, Absolute Neuts (auto) 5.5, Absolute Lymphs (auto) 0.42 L, Nucleated RBC % 0, Differential Comment COMMENT, Platelet Estimate MOD DEC, Sodium 137, Potassium 3.6, Chloride 108 H, Carbon Dioxide 26.0, Anion Gap 3 L, BUN 26 H, Creatinine 1.12, Estim Creat Clear Calc 45.89, Est GFR (MDRD) Af Amer 81, Est GFR (MDRD) Non-Af 67, BUN/Creatinine Ratio 23.2 H, Glucose 140 H, Calcium 8.0 L, Magnesium 1.6, Total Bilirubin 0.70, AST 24, ALT 22, Alkaline Phosphatase 189 H, B-Natriuretic Peptide 175.8 H, Total Protein 4.0 L, Albumin 1.5 L, Globulin 2.5, Albumin/Globulin Ratio 0.6 L 01/23/23 12:40: POC Glucose 138 H 01/23/23 17:07: POC Glucose 105 01/24/23 00:11: POC Glucose 156 H Micro: Microbiology 01/23/23 10:18 Nasal Secretion SARS-CoV-2 Antigen (Rapid) - Final SARS-CoV-2 (COVID 19) ABG Data ABG results: ABG 01/23/23 11:20 Specimen Type ART Sample Site L Radial pH 7.45 Bicarbonate Actual 23.5 Total CO2 25 Base Excess -1 O2 Saturation 97 O2 % 40.0 ABG pCO2 33.9 L ABG pO2 82 Basil Test Positive O2 Delivery Device BiPAP Vent Mode Not entered Radiology Impression Chest X-Ray 01/23/23 08:40 IMPRESSION: Progressive left lower lobe infiltrate with small left pleural effusion. Improved aeration at the right lung base. Electronically Signed: Vaibhav Magaña MD at 13:19 EDT , Chest CTA 01/23/23 12:10 IMPRESSION: Infiltrates in both lower lobes as well as in the posterior aspect of the lingular segment of the left upper lobe with small bilateral effusions worse on the left side. No evidence of a pulmonary embolism. Coronary artery calcification. Electronically Signed: Vaibhav Magaña MD at 12:45 EDT , Charges/Coding Visit Charges Inpatient E&M: 58407 Init Hosp L3
[2023-01-24 06:45] LABS: Bedside Glucose 136 mg/dL (74-106)
[2023-01-24 07:37] LABS: Absolute Lymphocyte Count 0.46 X10^3/uL (0.83-4.51); Absolute Neutrophil Count 6.9 X10^3/uL (2.0-7.7); Basophil# 0.01 X10^3/uL; Basophil% 0.1 % (0-1); Hematocrit 26.4 % (40-54); Hemoglobin 8.5 g/dL (13.0-16.5); Lymphocyte # 0.46 X10^3/ul (0.83-4.51); Lymphocyte % 5.7 % (19-41); Mean Corp Hgb Conc 32.2 g/dL (32-36); Mean Corpuscular Hgb 30.4 pg (27.0-32.0); Mean Corpuscular Volume 94.3 fL (80-94); Mean Platelet Vol. 10.5 fl (6.2-12.0); Monocyte# 0.54 X10^3/uL; Monocyte% 6.7 % (0-10); NRBC Flagged by Analyzer 0 % (0-5); Neutrophil # 6.94 X10^3/uL (2.7-7.7); Neutrophil % 86.8 % (47-70); POSITIVE COUNT YES; POSITIVE DIFFERENTIAL YES; Platelet Count 56 K/mm3 (150-450); RBC Distribution Width CV 16.4 % (11.6-14.6); RBC Distribution Width SD 55.9 fl (35.1-43.9)
[2023-01-24 07:49] LABS: Differential Indicated SCAN CRITERIA MET
[2023-01-24 07:53] LABS: ALB/GLOB Ratio 0.5 RATIO (0.9-2.4); AST(SGOT) 23 U/L (15-37); Alanine Aminotransfer ALT/SGPT 20 U/L (16-61); Albumin, Serum 1.5 g/dL (3.2-5.0); Alkaline Phosphatase 210 U/L (45-117); Anion Gap 7 (5-15); BUN 34 mg/dL (7-18); BUN/Creat Ratio 24.1 RATIO (10-20); Calcium,Total 8.2 mg/dL (8.5-10.1); Chloride 104 mmol/L (98-107); Creatinine, Serum 1.41 mg/dL (0.70-1.30); EST Glomerular Filtration Rate 51 mL/min (>60); Est Glom Filt Rate - Afr Amer 62 mL/min (>60); Estimated Creatinine Clearance 36.45 ml/min; Globulin 2.9 g/dL (2.2-4.2); Glucose 136 mg/dL (74-106); Potassium 3.7 mmol/L (3.5-5.1); Protein, Total 4.4 g/dL (6.4-8.2); Sodium Level 135 mmol/L (136-145)
[2023-01-24 08:40] LABS: Differential Comment SCANNED
[2023-01-24] MEDS: Aspirin 81 MG TAB.CHEW PO (08:40)
[2023-01-24 08:41] LABS: Platelet Estimate MKD DEC (ADEQ)
--- NOTE | 2023-01-24 08:59 | PHA.DC_ITS ---
Pharmacy [place] Med Reconciliation Pharmacy Service has performed discharge medication reconciliation for this patient. The patient's discharge medication list was reviewed for discrepancies and discrepancies were resolved. Medications at Discharge Home Medications aspirin 81 mg chewable tablet 81 mg PO DAILY@0800 ##90 11/21/17 atorvastatin 40 mg tablet 40 mg PO QHS cholesterol 06/04/21 carboxymethylcellulose sodium 1 % eye liquid gel drops (Refresh Liquigel) 1 drp ophthalmic (eye) QHS dry eyes 06/04/21 metformin 1,000 mg tablet 1,000 mg PO BIDWMEAL diabetes 06/04/21 levothyroxine 50 mcg capsule 75 mcg PO DAILY hypothyroidism 08/20/22 acetaminophen 325 mg tablet 650 mg (2 x 325 mg) PO Q4H PRN PRN Fever, pain - 12/31 #0 tabs 01/16/23 lisinopril 5 mg tablet 5 mg PO DAILY 01/17/23 nirmatrelvir 300 mg (150 mg x2)-ritonavir 100 mg tablet,dose pack (Paxlovid) See Rx Instructions PO .COMPLEX 01/17/23 insulin lispro 100 unit/mL subcutaneous pen (Humalog KwikPen (U-100) Insulin) See Protocol subcut Q6 #0 mL 01/22/23 levofloxacin 750 mg tablet 750 mg PO DAILY@0600 #0 tabs 01/22/23 olanzapine 5 mg disintegrating tablet 2.5 mg (1/2 x 5 mg) PO Q6 PRN agitation/combativeness #0 tabs 01/22/23
--- NOTE | 2023-01-24 09:33 | CASEMGMT ---
CATARINA received a message from Izabela at [facility]. CATARINA called Izabela and left her a voice mail requesting a return call. Gina GARDNER
[2023-01-24] MEDS: Furosemide 20 MG/2 ML VIAL IV ×2 (10:18→17:36)
[2023-01-24] MEDS: Enoxaparin 40 MG/0.4 ML Syringe SC (10:18)
[2023-01-24] MEDS: guaiFENesin/D-Methorphan TAB.SR.12H 1 TABLET PO (10:20)
--- NOTE | 2023-01-24 10:21 | CASEMGMT ---
CATARINA received a call from Myesha with [facility]. CATARINA updated Myesha on the lastest with patient. Gina GARDNER
[2023-01-24 11:37] LABS: Bedside Glucose 149 mg/dL (74-106)
--- NOTE | 2023-01-24 11:43 | CASEMGMT ---
CATARINA called Izabela at [facility] again as CATARINA has not heard from her. Izabela asked if patient was medically ready today. CATARINA let Izabela know that would likely be tomorrow maybe later today. CATARINA asked if it is okay that patient is on O2. Izabela said that is not a problem. Izabela asked for physicians note so their physician can review and make sure they are still okay with taking patient. CATARINA faxed Dr Domignuez's note from this am. Gina GARDNER
--- NOTE | 2023-01-24 12:36 | PCM.CONS.GEN ---
Assessment & Plan Assessment/Plan (1) Acute respiratory failure with hypoxia: (2) COVID-19: (3) Pneumonia: QUALIFIERS: Pneumonia type: aspiration pneumonia Aspiration pneumonia type: due to gastric secretions Laterality: right Lung location: lower lobe of lung Qualified Code(s): J69.0 - Pneumonitis due to inhalation of food and vomit PLAN: Will restart levaquin. Plan on po flagyl and levaquin for 4 more days. Will follow, thank you, d/w primary team. HPI Consult Data Date of Consult: 01/24/23 HPI Narrative Reason for Consultation: pneumonia HPI Narrative: JILLIAN PAGAN, is a 82 M who presented with recent admit for covid and pneumonia. Covid (+) 01/11. Given azithro/ceftriaxone during that stay. Discharged on 01/16 with levaquin, readmitted the next day. Sputum cx from 01/14 did grow pseudomonas. Pt developed worsened hypoxia and levaquin was added 01/22, then flagyl added 01/23 for possible aspiration. Due to mental status, unable to provide history or ROS. [facility] Medical History Atherosclerotic heart disease of [place] coronary artery without angina pectoris Chronic renal insufficiency Diabetes mellitus, type II Essential hypertension Hyperlipidemia Hypothyroidism Ischemic cardiomyopathy Nonrheumatic mitral valve regurgitation NSTEMI (non-ST elevated myocardial infarction) Overweight (BMI 25.0-29.9) Presence of permanent cardiac pacemaker (~10/03/16) Sinus bradycardia Sinus pause Systolic dysfunction Home Medications aspirin 81 mg chewable tablet 81 mg PO DAILY@0800 ##90 11/21/17 [Rx Last Taken 01/11/23] atorvastatin 40 mg tablet 40 mg PO QHS cholesterol 06/04/21 [History Last Taken 01/06/23] carboxymethylcellulose sodium 1 % eye liquid gel drops (Refresh Liquigel) 1 drp ophthalmic (eye) QHS dry eyes 06/04/21 [History Last Taken 01/15/23] metformin 1,000 mg tablet 1,000 mg PO BIDWMEAL diabetes 06/04/21 [History Last Taken 01/11/23] levothyroxine 50 mcg capsule 75 mcg PO DAILY hypothyroidism 08/20/22 [History Last Taken 01/14/23] acetaminophen 325 mg tablet 650 mg (2 x 325 mg) PO Q4H PRN PRN Fever, pain 1-12/31 #0 tabs 01/16/23 [Rx Last Taken Unknown] lisinopril 5 mg tablet 5 mg PO DAILY 01/17/23 [History Last Taken 01/12/23] nirmatrelvir 300 mg (150 mg x2)-ritonavir 100 mg tablet,dose pack (Paxlovid) See Rx Instructions PO .COMPLEX 01/17/23 [History Last Taken 01/11/23] insulin lispro 100 unit/mL subcutaneous pen (Humalog KwikPen (U-100) Insulin) See Protocol subcut Q6 #0 mL 01/22/23 [Rx Last Taken Unknown] levofloxacin 750 mg tablet 750 mg PO DAILY@0600 #0 tabs 01/22/23 [Rx Last Taken Unknown] olanzapine 5 mg disintegrating tablet 2.5 mg (1/2 x 5 mg) PO Q6 PRN agitation/combativeness #0 tabs 01/22/23 [Rx Last Taken Unknown] Allergy/AdvReac Type Severity Reaction Status Date / Time Penicillins Allergy Unknown NEEDS Verified 01/14/23 18:13 FOLLOW-UP Family History Father Heart disease Hypertension CAD (coronary artery disease) Surgical History History of cholecystectomy History of inguinal hernia repair History of tonsillectomy and adenoidectomy Hx of appendectomy Postsurgical percutaneous transluminal coronary angioplasty (PTCA) status Presence of stent in coronary artery (~10/02/16) S/P cardiac pacemaker procedure Social History household members: none housing: assisted living facility Smoking Status: Former smoker alcohol intake: never substance use type: does not use Physical Exam Const no apparent distress General Appearance: lethargic HEENT normocephalic and head/scalp atraumatic Eyes PERRL and EOMs intact bilaterally Neck supple and No nodes Resp Auscultation: diminished lung sounds Cardio regular rate and regular rhythm GI soft to palpation, non-tender and non-distended Extremity General Extremity: Negative for edema Skin no rashes or lesions noted Neuro Neuro Narrative: not following commands Medical Records Data Medical Nutrition Assessment Dietitian: Malnutrition Criteria Met Start: 10/28/23 14:12 Freq: Status: Active Protocol: Document 01/23/23 10:14 AG (Rec: 01/23/23 10:14 AG Desktop) Nutrition Malnutrition Evidence of Malnutrition Exists Yes Malnutrition (severe): Chronic Evidenced By Suboptimal Energy Intake ( Severe),Weight Loss (Severe) Clinical Problem Chronic Disease or Condition Related Malnutrition Etiology severe, chronic malnutrition related to inadequate energy intake Signs/Symptoms as evidenced by significant weight loss of 10% x ~6 months , estimated PO intake meeting <50% of estimated energy needs Status Active Problem Recommendation Dietitian Recommendations/Changes as medically appropriate continue regular diet- texture /consistency per WEB SEARCH EVALUATOR; will add 120mL ensure plus high protein TID w/ meals for additional nutrition if consumed Lab / Micro Data Attestation: I reviewed the patient's lab results. 01/24/23 07:08 01/24/23 07:08 Labs: Laboratory Results - last 24 hr 01/23/23 12:40: POC Glucose 138 H 01/23/23 17:07: POC Glucose 105 01/24/23 00:11: POC Glucose 156 H 01/24/23 06:24: POC Glucose 136 H 01/24/23 07:08: WBC 8.0, RBC 2.80 L, Hgb 8.5 L, Hct 26.4 L, MCV 94.3 H, MCH 30.4, MCHC 32.2, RDW Std Deviation 55.9 H, RDW Coeff of Taniya 16.4 H, Plt Count 56 L, MPV 10.5, Immature Gran % (Auto) 0.700, Neut % (Auto) 86.8 H, Lymph % (Auto) 5.7 L, [place] % (Auto) 6.7, Eos % (Auto) 0.0, Baso % (Auto) 0.1, Absolute Neuts (auto) 6.9, Absolute Lymphs (auto) 0.46 L, Nucleated RBC % 0, Differential Comment SCANNED, Platelet Estimate MKD DEC, Sodium 135 L, Potassium 3.7, Chloride 104, Carbon Dioxide 24.0, Anion Gap 7, BUN 34 H, Creatinine 1.41 H, Estim Creat Clear Calc 36.45, Est GFR (MDRD) Af Amer 62, Est GFR (MDRD) Non-Af 51 L, BUN/Creatinine Ratio 24.1 H, Glucose 136 H, Calcium 8.2 L, Total Bilirubin 0.90, AST 23, ALT 20, Alkaline Phosphatase 210 H, Total Protein 4.4 L, Albumin 1.5 L, Globulin 2.9, Albumin/Globulin Ratio 0.5 L 01/24/23 11:06: POC Glucose 149 H Micro: Microbiology 01/23/23 10:18 Nasal Secretion SARS-CoV-2 Antigen (Rapid) - Final SARS-CoV-2 (COVID 19) Radiology Impression Chest X-Ray 01/23/23 08:40 IMPRESSION: Progressive left lower lobe infiltrate with small left pleural effusion. Improved aeration at the right lung base. Electronically Signed: Vaibhav Magaña MD at 13:19 EDT , Chest CTA 01/23/23 12:10 IMPRESSION: Infiltrates in both lower lobes as well as in the posterior aspect of the lingular segment of the left upper lobe with small bilateral effusions worse on the left side. No evidence of a pulmonary embolism. Coronary artery calcification. Electronically Signed: Vaibhav Magaña MD at 12:45 EDT ,
--- NOTE | 2023-01-24 14:16 | CASEMGMT ---
CATARINA spoke with Ira at [facility]. CATARINA updated Ira on what CATARINA talked about with Izabela at [facility] today. Ira asked that [facility] keep them updated. Gina GARDNER
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
--- NOTE | 2023-01-24 16:27 | CASEMGMT ---
CATARINA spoke with Izabela at [facility] and they are still willing to take patient. Patient is next in line for the next available bed. Rhona said someone from [facility] will call PCU tomorrow am to check on patient's status. Gina Mir CIGAR BANDER HAND KENDRA
[2023-01-24 17:01] LABS: Bedside Glucose 144 mg/dL (74-106)
[2023-01-24] MEDS: Glycerin/Hypromellose/PEG400 15 ml Bottle 1 DRP EACH EYE (21:00)
[2023-01-24] MEDS: Ondansetron 4 MG/2 ML Vial IV (21:33)
[2023-01-25] VITALS (11 sets, daily range): BP systolic 95–112; BP diastolic 47–52; PULSE 77–84; RESP 15–18; TEMP 36.4–36.6; O2SAT 88–98
[2023-01-25 00:17] LABS: Bedside Glucose 143 mg/dL (74-106)
--- NOTE | 2023-01-25 00:50 | NURSING ---
bladder scanned for 628ml, straight cathed with 550ml out
[2023-01-25] MEDS: Ondansetron 4 MG/2 ML Vial IV (05:14)
--- NOTE | 2023-01-25 05:29 | PCM.HOSP.N ---
Hospitalist Note Patient with several bouts of emesis. Had urinary retention with catheterization performed but nausea/emesis persisted. KUB requested.
[2023-01-25] MEDS: proCHLORPERazine 10 MG/2 ML Vial IV (05:49)
--- NOTE | 2023-01-25 06:14 | RAD_ITS ---
EXAM: XR ABDOMEN, 1 VIEW CLINICAL INDICATION: NG TUBE PLACEMENT TECHNIQUE: Frontal supine view of the abdomen/pelvis. COMPARISON: No relevant prior studies available. FINDINGS: LOWER THORAX: Atelectatic changes noted at the lung bases. GASTROINTESTINAL TRACT: Prominent distention of the large and small bowel which may represent severe ileus or bowel obstruction. ORGANS: Cholecystectomy clips are in place. BONES/JOINTS: No acute abnormality. TUBES, LINES AND DEVICES: Distal 8 cm of the endogastric tube is coiled within the distal esophagus. RAD/Abdomen Single View (Portable) IMPRESSION: 1. Bowel obstruction/ileus. 2. Malposition of the endogastric tube. Electronically Signed: Riley Mitchell MD at 8:17 EDT ,
[2023-01-25 07:13] LABS: Bedside Glucose 149 mg/dL (74-106)
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
--- NOTE | 2023-01-25 08:00 | RAD_ITS ---
EXAM: XR ABDOMEN, 1 VIEW CLINICAL INDICATION: Nausea, emesis -- NG tube placement TECHNIQUE: Frontal supine view of the abdomen/pelvis. COMPARISON: No relevant prior studies available. FINDINGS: LOWER THORAX: Bibasilar atelectatic changes of the lungs again seen. GASTROINTESTINAL TRACT: Multiple dilated bowel loops noted in a pattern suggestive of obstruction likely at this small bowel level. ORGANS: No organomegaly. BONES/JOINTS: No acute abnormality. TUBES, LINES AND DEVICES: The tip of the endogastric tube has been repositioned now extending to the level of the gastric antrum. RAD/Abdomen Single View (Portable) IMPRESSION: Satisfactory repositioning of the endogastric tube. Bowel obstruction. Electronically Signed: Riley Mitchell MD at 9:06 EDT ,
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
[2023-01-25 08:25] LABS: Absolute Neutrophil Count 7.5 X10^3/uL (2.0-7.7); Basophil# 0.01 X10^3/uL; Basophil% 0.1 % (0-1); Hematocrit 28.1 % (40-54); Hemoglobin 8.9 g/dL (13.0-16.5); Lymphocyte % 4.6 % (19-41); Mean Corp Hgb Conc 31.7 g/dL (32-36); Mean Corpuscular Volume 97.9 fL (80-94); Mean Platelet Vol. 11.4 fl (6.2-12.0); Monocyte# 0.73 X10^3/uL; Monocyte% 8.4 % (0-10); NRBC Flagged by Analyzer 0 % (0-5); Neutrophil # 7.47 X10^3/uL (2.7-7.7); Neutrophil % 86.1 % (47-70); POSITIVE COUNT YES; POSITIVE DIFFERENTIAL YES; Platelet Count 57 K/mm3 (150-450); RBC Distribution Width CV 16.2 % (11.6-14.6); RBC Distribution Width SD 56.4 fl (35.1-43.9); Red Blood Count 2.87 M/mm3 (4.6-6.2); White Blood Count 8.7 K/mm3 (4.4-11.0)
[2023-01-25 08:29] LABS: Differential Indicated SCAN CRITERIA MET
[2023-01-25 08:35] LABS: Anion Gap 10 (5-15); BUN 44 mg/dL (7-18); BUN/Creat Ratio 25.7 RATIO (10-20); Calcium,Total 7.8 mg/dL (8.5-10.1); Chloride 101 mmol/L (98-107); Creatinine, Serum 1.71 mg/dL (0.70-1.30); EST Glomerular Filtration Rate 41 mL/min (>60); Est Glom Filt Rate - Afr Amer 50 mL/min (>60); Estimated Creatinine Clearance 30.06 ml/min; Glucose 155 mg/dL (74-106); Sodium Level 133 mmol/L (136-145)
--- NOTE | 2023-01-25 09:06 | CT_ITS ---
EXAM: CT ABDOMEN AND PELVIS WITHOUT INTRAVENOUS CONTRAST CLINICAL INDICATION: small bowel ileus TECHNIQUE: Helically acquired images were obtained of the abdomen and pelvis without intravenous contrast. This CT exam was performed using one or more of the following dose reduction techniques: automated exposure control, adjustment of the mA and/or kV according to patient size, and/or use of iterative reconstruction technique. COMPARISON: No relevant prior studies available. FINDINGS: LOWER THORAX: Bibasilar pneumonia/atelectasis with small bilateral pleural effusions. Heart is enlarged. ABDOMEN: LIVER: Normal. Homogeneous. GALLBLADDER AND BILE DUCTS: Cholecystectomy clips are in place. PANCREAS: Diffuse fatty replacement of the pancreas. No focal cystic mass. SPLEEN: Normal. Normal size without focal cystic or solid mass. ADRENALS: Normal. No nodules. KIDNEYS AND URETERS: 5.3 cm posterior left renal cyst. STOMACH AND BOWEL: There is prominent diffuse fluid distention of the small bowel and proximal colon as well as moderate stool burden throughout the large bowel. Pattern is consistent with severe ileus. No discrete transition point to suggest bowel obstruction. Diverticulosis of the colon noted without evidence of acute diverticulitis. PELVIS: APPENDIX: No evidence of acute appendicitis. BLADDER: Question mild urinary bladder trabeculation which may be related to bladder outlet obstruction. REPRODUCTIVE: Unremarkable as visualized. No mass. ABDOMEN and PELVIS: INTRAPERITONEAL SPACE: Normal. No ascites or other fluid collection. No free air. BONES/JOINTS: No suspicious lytic or blastic abnormality. SOFT TISSUES: Diffuse soft tissue edema suggesting anasarca. Small fat-containing umbilical hernia is present. VASCULATURE: Normal. Abdominal aorta is non-dilated. LYMPH NODES: Normal. No enlarged lymph nodes. CT/Abdomen/Pel W ORAL Cont Only IMPRESSION: 1. Prominent diffuse large and small bowel ileus. 2. Diverticulosis coli. 3. Bilateral lower lobe pneumonia/atelectasis. 4. Cardiomegaly. Electronically Signed: Riley Mitchell MD at 13:34 EDT ,
[2023-01-25] MEDS: Menthol/Lanolin/Calamine/Znox 113 GM Tube 1 APPLIC TOPICAL ×2 (09:46→21:00)
[2023-01-25] MEDS: Lactated Ringers 1,000 ML 50 ML IV (10:29)
[2023-01-25] MEDS: 0.9% Saline Lock 10 ML Syringe IV ×3 (10:29→13:05)
[2023-01-25 10:37] LABS: Differential Comment SCANNED
[2023-01-25] MEDS: metroNIDAZOLE 500 MG/100 ML BAG 100 MG IV ×2 (10:59→21:00)
[2023-01-25 12:20] LABS: Bedside Glucose 132 mg/dL (74-106)
[2023-01-25] MEDS: levoFLOXacin IV 500 MG/100 ML BAG 100 MG IV (13:01)
[2023-01-25] MEDS: Enoxaparin 30 MG/0.3 ML Syringe SC (14:27)
[2023-01-25 18:12] LABS: Bedside Glucose 101 mg/dL (74-106)
[2023-01-25] MEDS: Glycerin/Hypromellose/PEG400 15 ml Bottle 1 DRP EACH EYE (21:00)
[2023-01-25 23:18] LABS: Bedside Glucose 86 mg/dL (74-106)
[2023-01-26] VITALS (9 sets, daily range): BP systolic 91–108; BP diastolic 43–52; PULSE 79–89; RESP 16–18; TEMP 36.3–37; O2SAT 94–97
[2023-01-26] MEDS: Lactated Ringers 1,000 ML 50 ML IV ×2 (03:04→20:12)
[2023-01-26] MEDS: metroNIDAZOLE 500 MG/100 ML BAG 100 MG IV ×3 (04:56→20:36)
[2023-01-26] MEDS: Dextrose 50%-Water 25 GM/50 ML DISP.SYRIN IV ×3 (05:04→23:02)
--- NOTE | 2023-01-26 05:55 | RAD_ITS ---
INDICATION: Hypoxia, suspect aspirating with bouts N/V EXAMINATION/TECHNIQUE: X-RAY - XR Chest 1 View COMPARISON: 01/23/2023. FINDINGS: LINES/DEVICES: Cardiac pacer and leads are stable. Enteric tube side-port and distal tip are distal to the GE junction within the proximal stomach. LUNGS: Bilateral lower lung infiltrates. Possible small left pleural effusion. No evidence of a pneumothorax. MEDIASTINUM AND CARDIOVASCULAR STRUCTURES: Cardiac silhouette size is upper limits of normal and unchanged. Mediastinum is unremarkable. BONES AND SOFT TISSUES: No acute abnormality. RAD/Chest 1 View (Portable) IMPRESSION: Bilateral lower lung infiltrates and possible small left pleural effusion. Electronically Signed: Rob Miles DO at 2:43 EST ,
[2023-01-26 06:27] LABS: Bedside Glucose 113 mg/dL (74-106)
[2023-01-26 06:27] LABS: Bedside Glucose 76 mg/dL (74-106)
--- NOTE | 2023-01-26 07:20 | RAD_ITS ---
INDICATION: ileus EXAMINATION/TECHNIQUE: X-RAY - XR Abdomen 1 View COMPARISON: CT dated January 25, 2023 FINDINGS: BOWEL GAS PATTERN: There are persistent dilated and gas-filled loops of small bowel, slightly less pronounced within the right abdomen the prior examination. There is gas noted within the colon. There is an enteric tube in place terminating within the expected region of the gastric body. FREE AIR: Not assessed on a single supine view. ORGANOMEGALY: Not seen. CALCIFICATIONS: No abnormal calcifications observed. LOWER CHEST: No acute pathology. BONES AND SOFT TISSUES: No acute pathology. RAD/Abdomen Single View (Portable) IMPRESSION: Slightly improved small bowel ileus. Electronically Signed: Saba Still MD at 10:05 EST ,
[2023-01-26 07:39] LABS: Anion Gap 7 (5-15); BUN 43 mg/dL (7-18); BUN/Creat Ratio 31.6 RATIO (10-20); Calcium,Total 7.6 mg/dL (8.5-10.1); Chloride 100 mmol/L (98-107); Creatinine, Serum 1.36 mg/dL (0.70-1.30); EST Glomerular Filtration Rate 53 mL/min (>60); Est Glom Filt Rate - Afr Amer 65 mL/min (>60); Estimated Creatinine Clearance 37.79 ml/min; Glucose 112 mg/dL (74-106); Magnesium 1.7 mg/dL (1.6-2.6); Potassium 3.8 mmol/L (3.5-5.1); Sodium Level 136 mmol/L (136-145)
[2023-01-26 07:44] LABS: Phosphorus 2.5 mg/dL (2.5-4.9)
--- NOTE | 2023-01-26 08:15 | CON.PCM.SX_ITS ---
Assessment & Plan Assessment/Plan (1) Ileus: PLAN: The patient has ileus likely from his pneumonia. The patient had a CT scan with oral contrast yesterday which showed diffuse ileus with no transition point or sign of obstruction and stool within the colon. The patient's nurses do report that he had flatus when they turned him today. When I examined him today his abdomen is soft and nontender. His NG only had 200 out overnight. I am repeating an x-ray this morning. As long as the contrast has passed into the colon and there is improvement in the ileus I will remove his NG and attempt clears again. Hunter Werner MD Pager: [facility] [address] [place] [address], [address] [place] [address] Office: HPI Consult Data Date of Consult: 01/26/23 HPI Narrative HPI Narrative: JILLIAN PAGAN, is a 82 M who has been admitted with COVID-pneumonia. Apparently the patient threw up when being laid flat the other day for his x-ray and there was concern for aspiration. The patient had a firm distended abdomen yesterday and an NG was placed. Patient is confused and hard of hearing with currently the patient is not complaining of anything. [facility], [facility] Medical History Atherosclerotic heart disease of crow coronary artery without angina pectoris Chronic renal insufficiency Diabetes mellitus, type II Essential hypertension Hyperlipidemia Hypothyroidism Ischemic cardiomyopathy Nonrheumatic mitral valve regurgitation NSTEMI (non-ST elevated myocardial infarction) Overweight (BMI 25.0-29.9) Presence of permanent cardiac pacemaker (~10/03/16) Sinus bradycardia Sinus pause Systolic dysfunction Home Medications aspirin 81 mg chewable tablet 81 mg PO DAILY@0800 ##90 11/21/17 [Rx Last Taken 01/11/23] atorvastatin 40 mg tablet 40 mg PO QHS cholesterol 06/04/21 [History Last Taken 01/06/23] carboxymethylcellulose sodium 1 % eye liquid gel drops (Refresh Liquigel) 1 drp ophthalmic (eye) QHS dry eyes 06/04/21 [History Last Taken 01/15/23] metformin 1,000 mg tablet 1,000 mg PO BIDWMEAL diabetes 06/04/21 [History Last Taken 01/11/23] levothyroxine 50 mcg capsule 75 mcg PO DAILY hypothyroidism 08/20/22 [History Last Taken 01/14/23] acetaminophen 325 mg tablet 650 mg (2 x 325 mg) PO Q4H PRN PRN Fever, pain 1- 12/31 #0 tabs 01/16/23 [Rx Last Taken Unknown] lisinopril 5 mg tablet 5 mg PO DAILY 01/17/23 [History Last Taken 01/12/23] nirmatrelvir 300 mg (150 mg x2)-ritonavir 100 mg tablet,dose pack (Paxlovid) See Rx Instructions PO .COMPLEX 01/17/23 [History Last Taken 01/11/23] insulin lispro 100 unit/mL subcutaneous pen (Humalog KwikPen (U-100) Insulin) See Protocol subcut Q6 #0 mL 01/22/23 [Rx Last Taken Unknown] levofloxacin 750 mg tablet 750 mg PO DAILY@0600 #0 tabs 01/22/23 [Rx Last Taken Unknown] olanzapine 5 mg disintegrating tablet 2.5 mg (1/2 x 5 mg) PO Q6 PRN agitation/combativeness #0 tabs 01/22/23 [Rx Last Taken Unknown] Allergy/AdvReac Type Severity Reaction Status Date / Time Penicillins Allergy Unknown NEEDS Verified 01/14/23 18:13 FOLLOW-UP Family History Father Heart disease Hypertension CAD (coronary artery disease) Surgical History History of cholecystectomy History of inguinal hernia repair History of tonsillectomy and adenoidectomy Hx of appendectomy Postsurgical percutaneous transluminal coronary angioplasty (PTCA) status Presence of stent in coronary artery (~10/02/16) S/P cardiac pacemaker procedure Social History household members: none housing: assisted living facility Smoking Status: Former smoker alcohol intake: never substance use type: does not use ROS Review of Systems ROS Unobtainable: due to mental status Physical Exam Const no apparent distress HEENT normocephalic Eyes PERRL Resp normal respiratory effort GI soft to palpation, non-tender and non-distended Medical Records Data Medical Nutrition Assessment Dietitian: Malnutrition Criteria Met Start: 01/18/23 14:12 Freq: Status: Active Protocol: Document 01/23/23 10:14 AG (Rec: 01/23/23 10:14 AG Desktop) Nutrition Malnutrition Evidence of Malnutrition Exists Yes Malnutrition (severe): Chronic Evidenced By Suboptimal Energy Intake ( Severe),Weight Loss (Severe) Clinical Problem Chronic Disease or Condition Related Malnutrition Etiology severe, chronic malnutrition related to inadequate energy intake Signs/Symptoms as evidenced by significant weight loss of 10% x ~6 months , estimated PO intake meeting <50% of estimated energy needs Status Active Problem Recommendation Dietitian Recommendations/Changes as medically appropriate continue regular diet- texture /consistency per [employer]; will add 120mL ensure plus high protein TID w/ meals for additional nutrition if consumed Lab / Micro Data 01/25/23 07:28 01/26/23 05:50 Labs: Laboratory Results - last 24 hr 01/25/23 07:28: Differential Comment SCANNED 01/25/23 11:59: POC Glucose 132 H 01/25/23 17:52: POC Glucose 101 01/25/23 22:50: POC Glucose 86 01/26/23 04:53: POC Glucose 76 01/26/23 05:44: POC Glucose 113 H 01/26/23 05:50: Sodium 136, Potassium 3.8, Chloride 100, Carbon Dioxide 29.0, Anion Gap 7, BUN 43 H, Creatinine 1.36 H, Estim Creat Clear Calc 37.79, Est GFR (MDRD) Af Amer 65, Est GFR (MDRD) Non-Af 53 L, BUN/Creatinine Ratio 31.6 H, Glucose 112 H, Calcium 7.6 L, Phosphorus 2.5, Magnesium 1.[address] 01/25/23 09:06 IMPRESSION: 1. Prominent diffuse large and small bowel ileus. 2. Diverticulosis coli. 3. Bilateral lower lobe pneumonia/atelectasis. 4. Cardiomegaly. Electronically Signed: Riley Mitchell MD at 13:34 EDT , Chest X-Ray 01/26/23 05:55 IMPRESSION: Bilateral lower lung infiltrates and possible small left pleural effusion. Electronically Signed: Rob Miles DO at 2:43 EST ,
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
[2023-01-26] MEDS: Menthol/Lanolin/Calamine/Znox 113 GM Tube 1 APPLIC TOPICAL ×2 (10:07→20:12)
[2023-01-26] MEDS: Enoxaparin 30 MG/0.3 ML Syringe SC (10:07)
[2023-01-26 12:27] LABS: Bedside Glucose 75 mg/dL (74-106)
[2023-01-26 17:56] LABS: Bedside Glucose 68 mg/dL (74-106)
[2023-01-26 18:35] LABS: Bedside Glucose 94 mg/dL (74-106)
[2023-01-26] MEDS: Glycerin/Hypromellose/PEG400 15 ml Bottle 1 DRP EACH EYE (20:11)
[2023-01-26 23:37] LABS: Bedside Glucose 76 mg/dL (74-106)
[2023-01-27] VITALS (8 sets, daily range): BP systolic 111–121; BP diastolic 50–60; PULSE 82–96; RESP 18–29; TEMP 35.9–36.8; O2SAT 87–97
[2023-01-27 05:22] LABS: Absolute Lymphocyte Count 0.38 X10^3/uL (0.83-4.51); Absolute Neutrophil Count 2.8 X10^3/uL (2.0-7.7); Basophil# 0.01 X10^3/uL; Basophil% 0.3 % (0-1); Hematocrit 26.5 % (40-54); Hemoglobin 8.2 g/dL (13.0-16.5); Lymphocyte # 0.38 X10^3/ul (0.83-4.51); Lymphocyte % 10.4 % (19-41); Mean Corp Hgb Conc 30.9 g/dL (32-36); Mean Corpuscular Hgb 29.5 pg (27.0-32.0); Mean Corpuscular Volume 95.3 fL (80-94); Mean Platelet Vol. 10.9 fl (6.2-12.0); Monocyte# 0.36 X10^3/uL; Monocyte% 9.9 % (0-10); NRBC Flagged by Analyzer 0 % (0-5); Neutrophil # 2.84 X10^3/uL (2.7-7.7); Neutrophil % 77.8 % (47-70); POSITIVE COUNT YES; POSITIVE DIFFERENTIAL YES; RBC Distribution Width CV 16.3 % (11.6-14.6); RBC Distribution Width SD 56.4 fl (35.1-43.9); Red Blood Count 2.78 M/mm3 (4.6-6.2); White Blood Count 3.7 K/mm3 (4.4-11.0)
[2023-01-27] MEDS: metroNIDAZOLE 500 MG/100 ML BAG 100 MG IV (05:23)
[2023-01-27 05:25] LABS: Differential Indicated SCAN CRITERIA MET; Platelet Count 46 K/mm3 (150-450)
[2023-01-27 05:47] LABS: Bedside Glucose 93 mg/dL (74-106)
[2023-01-27 06:01] LABS: Anion Gap 7 (5-15); BUN 35 mg/dL (7-18); BUN/Creat Ratio 29.4 RATIO (10-20); Calcium,Total 7.8 mg/dL (8.5-10.1); Chloride 104 mmol/L (98-107); Creatinine, Serum 1.19 mg/dL (0.70-1.30); EST Glomerular Filtration Rate 62 mL/min (>60); Est Glom Filt Rate - Afr Amer 75 mL/min (>60); Estimated Creatinine Clearance 43.19 ml/min; Glucose 99 mg/dL (74-106); Potassium 3.9 mmol/L (3.5-5.1); Sodium Level 139 mmol/L (136-145)
[2023-01-27 06:28] LABS: Bedside Glucose 86 mg/dL (74-106)
[2023-01-27 06:43] LABS: Differential Comment SCANNED; Platelet Estimate MKD DEC (ADEQ)
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
--- NOTE | 2023-01-27 10:31 | PN.SURG_ITS ---
Subjective Subjective Patient did not have any issues overnight. Objective Data Objective Data Vital Signs: Vital Signs Temp Pulse Resp BP Pulse Ox O2 Del Method O2 Flow Rate 96.6 F L 92 28 H 115/60 91 Nasal Cannula 6 01/27/23 08:18 01/27/23 08:18 01/27/23 08:18 01/27/23 08:18 01/27/23 08:18 01/27/23 08:18 01/27/23 08:18 FiO2 50 01/24/23 04:31 Oxygen Flow Rate (L/min) 6 Oxygen Delivery Method Nasal Cannula Weight: 175 lb 11.335 oz Body Mass Index (BMI) 28.3 Intake & Output: Intake and Output for Last 24 Hours 01/26/23 01/26/23 01/27/23 00:59 23:59 23:59 Intake Total 213.33 / 213.33 Output Total 0 / 0 Balance 213.33 / 213.33 Medical Nutrition Assessment Dietitian: Malnutrition Criteria Met Start: 01/18/23 14:12 Freq: Status: Active Protocol: Document 01/23/23 10:14 AG (Rec: 01/23/23 10:14 AG Desktop) Nutrition Malnutrition Evidence of Malnutrition Exists Yes Malnutrition (severe): Chronic Evidenced By Suboptimal Energy Intake ( Severe),Weight Loss (Severe) Clinical Problem Chronic Disease or Condition Related Malnutrition Etiology severe, chronic malnutrition related to inadequate energy intake Signs/Symptoms as evidenced by significant weight loss of 10% x ~6 months , estimated PO intake meeting <50% of estimated energy needs Status Active Problem Recommendation Dietitian Recommendations/Changes as medically appropriate continue regular diet- texture /consistency per EMPLOYMENT COUNSELOR; will add 120mL ensure plus high protein TID w/ meals for additional nutrition if consumed Lab / Micro Data 01/27/23 04:40 01/27/23 04:40 Labs: Laboratory Results - last 24 hr 01/26/23 12:04: POC Glucose 75 01/26/23 17:38: POC Glucose 68 L 01/26/23 18:17: POC Glucose 94 01/26/23 22:59: POC Glucose 76 01/27/23 03:25: POC Glucose 86 01/27/23 04:40: WBC 3.7 L, RBC 2.78 L, Hgb 8.2 L, Hct 26.5 L, MCV 95.3 H, MCH 29.5, MCHC 30.9 L, RDW Std Deviation 56.4 H, RDW Coeff of Taniya 16.3 H, Plt Count 46 L*, MPV 10.9, Immature Gran % (Auto) 1.600 H, Neut % (Auto) 77.8 H, Lymph % (Auto) 10.4 L, Randall % (Auto) 9.9, Eos % (Auto) 0.0, Baso % (Auto) 0.3, Absolute Neuts (auto) 2.8, Absolute Lymphs (auto) 0.38 L, Nucleated RBC % 0, Differential Comment SCANNED, Diff Path Review July foll, Platelet Estimate MKD DEC, Sodium 139, Potassium 3.9, Chloride 104, Carbon Dioxide 28.0, Anion Gap 7, BUN 35 H, Creatinine 1.19, Estim Creat Clear Calc 43.19, Est GFR (MDRD) Af Amer 75, Est GFR (MDRD) Non-Af 62, BUN/Creatinine Ratio 29.4 H, Glucose 99, Calcium 7.8 L 01/27/23 05:25: POC Glucose 93 Micro: Microbiology 01/23/23 10:18 Nasal Secretion SARS-CoV-2 Antigen (Rapid) - Final SARS-CoV-2 (COVID 19) 01/20/23 12:10 Nasal Secretion SARS-CoV-2 Antigen (Rapid) - Final SARS-CoV-2 (COVID 19) 01/17/23 11:04 Nasal Secretion SARS-CoV-2 Antigen (Rapid) - Final SARS-CoV-2 (COVID 19) Physical Exam Const no apparent distress GI soft to palpation and non-tender Assessment & Plan Assessment/Plan (1) Ileus: PLAN: The patient did not have much out from his NG tube. He did have a small bowel movement. His abdomen is soft and nondistended. Unsure as to the etiolog y of the ileus and that may be due to his pneumonia worsening as he was put on more oxygen. Patient had concern for aspiration during his initial vomiting event. I will remove his NG tube and start light clear liquids and see how he tolerates this today. Hunter Werner MD Pager: [facility] [address] [place] [address], [address] [place] [address] Office:
[2023-01-27] MEDS: levoFLOXacin IV 500 MG/100 ML BAG 100 MG IV (10:53)
[2023-01-27] MEDS: Menthol/Lanolin/Calamine/Znox 113 GM Tube 1 APPLIC TOPICAL (10:58)
--- NOTE | 2023-01-27 11:18 | CASEMGMT ---
Social Work SW spoke w/physician, she spoke w/pt's sister, and put in an order for hospice. SW called [facility], referral made, information faxed. They will call pt's sister and set up a meeting time. CARROL Harman
[2023-01-27] MEDS: Miconazole Nitrate 43 GM Bottle 1 APPLIC TOPICAL (11:23)
--- NOTE | 2023-01-27 13:07 | PCM.PN.ID ---
Physical Exam Narrative Family at bedside, no fever, no events overnight Const Orientation / Consciousness: lethargic Resp normal air movement and clear to auscultation bilaterally Auscultation: diminished lung sounds Cardio regular rate and regular rhythm GI soft to palpation, non-tender and non-distended Skin no rashes or lesions noted ID ID: Route of nutrition/ use of supplements: [] Nutritional Intake: [] IV Site: [] Boothe Catheter: [] Assessment & Plan Assessment/Plan (1) Acute respiratory failure with hypoxia: (2) COVID-19: (3) Pneumonia: QUALIFIERS: Pneumonia type: aspiration pneumonia Aspiration pneumonia type: due to gastric secretions Laterality: right Lung location: lower lobe of lung Qualified Code(s): J69.0 - Pneumonitis due to inhalation of food and vomit PLAN: Plan on po flagyl and levaquin for 2 more days. Will follow as needed
[2023-01-27 13:33] LABS: Bedside Glucose 125 mg/dL (74-106)
--- NOTE | 2023-01-27 15:17 | NURSING ---
Report called to [facility] to Agnes.
--- NOTE | 2023-01-27 15:53 | DCINST_ITS ---
Discharge Instructions Diet Discharge Diet: No restrictions Follow Up Care Test Results: Test results from this visit will be discussed in further detail at your follow- up appointment, if applicable. Discharge Plan Admission Admit Date/Time: 01/17/23 15:38 Primary Reason for Your Visit: Acute encephalopathy Attending Provider: Candis Bean Primary Care Provider: Harshil Franklin Consulting Providers: Lucila Cortes; Doug Mora; Faustino Luther; Hunter Werner; Pierce Barros; Candis Bean; Markell Reyes; Brent Galvan; Daja Barros; Patricia Adame; Martha Reyes ASSISTANT SALES DIRECTOR Instructions Patient Instructions: Hospice Managing Pain, Hospice: As Nears Discharge Orders/Prescriptions Prescriptions: New levofloxacin 750 mg Tablet 750 mg PO DAILY@0600 Qty: 0 0RF olanzapine 5 mg Tablet,Disintegrating 2.5 mg PO Q6 PRN (Reason: agitation/combativeness) Qty: 0 0RF insulin lispro [Humalog KwikPen Insulin] 100 unit/mL Insulin Pen See Protocol subcut Q6 Qty: 0 0RF Protocol: 2. Sliding Scale Insulin Low-Med Dosing Condition: 150-209 mg/dl = 1 unit Condition: 210-269 mg/dl = 2 units Condition: 270-329 mg/dl = 3 units Condition: 330-389 mg/dl = 4 units Condition: 390-449 mg/dl = 5 units Condition: Greater than 449 call physician Protocol Text: - Use for Total Daily Dose of Insulin 28-36 units - Average size patients LOW MEDIUM DOSING ALGORITHM metronidazole 500 mg tablet 500 mg PO Q8H 2 Days Qty: 6 0RF Continued atorvastatin 40 mg tablet 40 mg PO QHS Patient Comments: 1 TABLET BY MOUTH DAILY DX: carboxymethylcellulose sodium [Refresh Liquigel] 1 % drops, liquid gel 1 drp ophthalmic (eye) QHS levothyroxine 50 mcg capsule 75 mcg PO DAILY acetaminophen 325 mg Tablet 650 mg PO Q4H PRN PRN (Reason: Fever, pain 1-12/31) Qty: 0 0RF Discontinued metformin 1,000 mg tablet 1,000 mg PO BIDWMEAL Patient Comments: 1 TABLET BY MOUTH TWICE ATDAY WITH MEALS DX:DMIIM lisinopril 5 mg tablet 5 mg PO DAILY Paxlovid 300 mg (150 mg x 2)-100 mg tablets,dose pack See Rx Instructions .ROUTE .COMPLEX Hold Instructions: Hold it until patient has symptoms of COVID. Currently he does not need it Rx Instructions: take TWO 150 mg tablets of nirmatrelvir with ONE 100 mg tablet of ritonavir twice daily for 5 days amoxicillin-pot clavulanate 875-125 mg tablet 1 tab PO Q12H aspirin 81 mg tablet,chewable 81 mg PO DAILY@0800 Qty: 90 3RF Patient Comments: heart health Referrals / Follow Up: Harshil Franklin MD [Primary Care Provider] - Disposition Disposition (needs filled in before D/C Order can be placed): Hospice in Medical Facility
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
[2023-01-28 15:12] LABS: Pathologist Review Reviewed
== END 2023-01-27 16:50 | disposition hospice, inpatient (51) | DRG 137 ==
LOC: ED 14:39 → PCU 16:08
PROVIDERS: Family Medicine; Internal Medicine; Admitting Provider Internal Medicine; Emergency Provider Emergency Medicine; PCP Family Medicine; Visit Provider Internal Medicine
DX: U07.1 COVID-19 (principal); J96.01 Acute respiratory failure with hypoxia; J69.0 Pneumonitis due to inhalation of food and vomit; I50.33 Acute on chronic diastolic (congestive) heart failure; G93.41 Metabolic encephalopathy; E43 Unspecified severe protein-calorie malnutrition; K26.9 Duodenal ulcer, unspecified as acute or chronic, without hemorrhage or perforation; I27.20 Pulmonary hypertension, unspecified; E11.22 Type 2 diabetes mellitus with diabetic chronic kidney disease; F02.80 Dementia in other diseases classified elsewhere, unspecified severity, without behavioral disturbance, psychotic disturbance, mood disturbance, and anxiety; I13.0 Hypertensive heart and chronic kidney disease with heart failure and stage 1 through stage 4 chronic kidney disease, or unspecified chronic kidney disease; G31.9 Degenerative disease of nervous system, unspecified; Z79.4 Long term (current) use of insulin; D69.6 Thrombocytopenia, unspecified; K56.7 Ileus, unspecified; N18.9 Chronic kidney disease, unspecified; E03.9 Hypothyroidism, unspecified; D64.9 Anemia, unspecified; I34.0 Nonrheumatic mitral (valve) insufficiency; K21.9 Gastro-esophageal reflux disease without esophagitis; I25.5 Ischemic cardiomyopathy; I25.10 Atherosclerotic heart disease of native coronary artery without angina pectoris; E78.5 Hyperlipidemia, unspecified; J98.11 Atelectasis; E87.20 Acidosis, unspecified; R77.8 Other specified abnormalities of plasma proteins; R53.81 Other malaise; Z79.82 Long term (current) use of aspirin; Z79.84 Long term (current) use of oral hypoglycemic drugs; Z95.5 Presence of coronary angioplasty implant and graft; Z87.891 Personal history of nicotine dependence; K25.9 Gastric ulcer, unspecified as acute or chronic, without hemorrhage or perforation; H91.90 Unspecified hearing loss, unspecified ear; Z68.28 Body mass index [BMI] 28.0-28.9, adult
CPT/HCPCS: 36415; 36600; 70450; 71045; 71275; 74018; 74176; 80048; 80053; 80061; 81001; 82306; 82607; 82803; 82962; 83036; 83605; 83735; 83880; 84100; 84443; 84484; 85025; 85027; 85610; 85730; 86140; 87426; 87641; 87811; 92526; 92610; 93005; 93306; 94002; 94640; 94762; 97110; 97162; 97166; 97530; 97535; 97802; 97803; 99252; 99285; J7030; J7040; J7050; J7120; P9612; Q9967; A4216; G0463; J1940; J2405; J2916